=== PATIENT | female | born 1965 | race Caucasian/White ===

== ENCOUNTER 2024-03-29 02:50 | Inpatient (IN) | payer MEDICARE, MEDICAID ==
[2024-03-29] MEDS ORDERED: SENNOSIDES 8.6 MG TAB PO PRN (03:06)
[2024-03-29] MEDS: hydrOXYzine HCL 25 MG TAB PO SCH (09:26)
[2024-03-29] MEDS: METOPROLOL TARTRATE 25 MG TAB PO SCH (09:26)
[2024-03-29] MEDS: SERTRALINE 100 MG TAB PO SCH (09:26)
[2024-03-29] MEDS: LORazepam 1 MG TAB PO PRN (10:50)
[2024-03-29 10:54] LABS: Basophils % (A) 1 %; Eosinophils # (A) 0.1 k/uL (0-0.7); Eosinophils % (A) 1 %; HCT 46.9 % (34.0-46.0); HGB 13.9 gm/dL (11.4-16.0); Lymphocytes # (A) 1.8 k/uL (1.0-4.8); Lymphocytes % (A) 27 %; MCH 26.1 pg (25.0-35.0); MCHC 29.6 g/dL (31.0-37.0); MCV 88.2 fL (80.0-100.0); Mean Platelet Volume 9.4; Monocytes # (A) 0.6 k/uL (0-1.0); Monocytes % (A) 8 %; Neutrophils # (A) 4.2 k/uL (1.3-7.7); Neutrophils % (A) 62 %; Platelet Count 149 k/uL (150-450); RBC 5.31 m/uL (3.80-5.40); RDW 13.9 % (11.5-15.5); WBC 6.8 k/uL (3.8-10.6)
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
[2024-03-29] MEDS: SENNOSIDES-DOCUSATE SODIUM 1 EACH TAB PO SCH (11:54)
[2024-03-29] MEDS: cloZAPine 100 MG TAB PO SCH (11:57)
[2024-03-29] MEDS: haloperidoL 5 MG TAB PO SCH (11:57)
--- NOTE | 2024-03-29 11:58 | XR ---
EXAMINATION TYPE: XR KUB DATE OF EXAM: 03/29/2024 COMPARISON: NONE HISTORY: Foreign body TECHNIQUE: One view abdominal series FINDINGS: The osseous structures are intact. The bowel gas pattern is nonspecific. Lung bases are clear. Rect al region is not included in the [id number]. Remaining portion of the pelvis and abdomen demonstra te no foreign body. Spina bifida occulta at lumbosacral junction. Degenerative change of the spine. IMPRESSION: 1. Nonspecific abdomen. Rectal region not included in the [id number].
--- NOTE | 2024-03-29 12:00 | XR ---
EXAMINATION TYPE: XR pelvis AP view DATE OF EXAM: 03/29/2024 COMPARISON: NONE HISTORY: Pain The osseous structures are intact and the joint spaces are preserved. No acute fracture is seen. Vi sualized bowel gas pattern is nonspecific. Bilateral hypertrophic hip arthropathy. Nonspecific lucen t lesions involving the femoral neck greater on the left. Hypertrophic arthropathy pubic symphysis. P unctate calcifications in the pelvis likely phleboliths. Enthesophytes involving the iliac crest. No metallic foreign body. Spina bifida occulta lumbosacral junction. IMPRESSION: 1. No radial metallic foreign body identified. 2. Nonspecific lytic lesion too small to characterize left femoral neck.
[2024-03-29] MEDS: bisacodyL 10 MG SUPP RECTAL STA (13:22)
[2024-03-29] MEDS: MAGNESIUM HYDROXIDE 2,400 MG/30 ML CUP PO PRN (14:38)
--- NOTE | 2024-03-29 18:36 | P.HPMEDMHU ---
History of Present Illness H&P Date: 03/29/24 Patient is a 58-year-old female with a past medical history of hypertension who is admitted to the psych unit for treatment of schizophrenia and suicidal idealization. Patient currently complaining of some rectal pain. She states that the rectal pain has been going on for 4 years. She denies any history of hemorrhoids. She states that when she eats ice cream it makes her rectal pain worse. She also states that she has bad anxiety. She is requesting something for anxiety. ROS: 10 ROS reviewed and are negative except as noted in HPI Physical exam General: [Alert and oriented, well nourished, no acute distress]. Eye: [PERRL, EOMI, normal conjunctiva]. HENT: [Normocephalic, clear tympanic membranes, normal hearing, moist oral mucosa, no scleral icterus, no sinus tenderness]. Neck: [Supple, non-tender, no carotid bruits, no JVD, no lymphadenopathy]. Lungs: [Clear to auscultation and percussion, non-labored respiration]. Heart: [Normal rate, regular rhythm, no murmur, gallop or edema]. Abdomen: [Soft, non-tender, non-distended, normal bowel sounds, no masses]. Musculoskeletal: [Normal range of motion and strength, no tenderness or swelling]. Skin: [Skin is warm, dry and pink, no rashes or lesions]. Neurologic: [Awake, alert, and oriented X3, CN II-XII intact]. Psychiatric: [Cooperative, appropriate mood and affect]. Assessment and plan Hypertension Resume metoprolol Blood pressure controlled Schizophrenia suicidal idealization as per you psychiatry management I reviewed patient's labs which are unremarkable. Please do not hesitate to contact sound physicians with any questions Past Medical History Past Medical History: Hypertension Additional Past Medical History / Comment(s): Demonstrating s/s of tardive dyskinesia AEB lifting legs up and down while standing and facial movements. History of Any Multi-Drug Resistant Organisms: None Reported Past Surgical History: Section Additional Past Surgical History / Comment(s): x 2 Past Anesthesia/Blood Transfusion Reactions: No Reported Reaction Past Psychological History: Schizoaffective Disorder Smoking Status: Never smoker Past Alcohol Use History: None Reported Past Drug Use History: None Reported Medications and Allergies Home Medications Medication Instructions Recorded Confirmed Type Metoprolol Tartrate [Lopressor] 25 mg PO BID 03/29/24 03/29/24 History Sertraline [Zoloft] 200 mg PO DAILY 03/29/24 03/29/24 History cloZAPine [Clozaril] 100 mg PO BID 03/29/24 03/29/24 History haloperidoL [Haldol] 5 mg PO TID 03/29/24 03/29/24 History hydrOXYzine pamoate [Vistaril] 50 mg PO TID 03/29/24 03/29/24 History traZODone HCL [Desyrel] 100 mg PO HS 03/29/24 03/29/24 History Allergies Allergy/AdvReac Type Severity Reaction Status Date / Time aripiprazole [From [facility]] Allergy Mild Unknown Verified 03/29/24 09:45 Physical Exam Osteopathic Statement: *. No significant issues noted on an osteopathic structural exam other than those noted in the History and Physical/Consult. Vitals: Vital Signs Temp Pulse Resp BP Pulse Ox 03/29/24 09:15 97.9 F 103 H 18 138/74 95 Intake and Output 03/29/24 03/29/24 03/29/24 06:59 14:59 22:59 Other: Weight 54.4 kg 64.3 kg Cranial Nerve Examination - Cranial Nerves Cranial Nerve I- Olfactory: Intact Cranial Nerve II- Optic: Intact Cranial Nerve III- Oculomotor: Intact Cranial Nerve IV- Trochlear: Intact Cranial Nerve V- Trigeminal: Intact Cranial Nerve - Abducens: Intact Cranial Nerve VII- Facial: Intact Cranial Nerve VIII- Auditory: Intact Cranial Nerve IX- Glossopharyngeal: Intact Cranial Nerve X- Vagus: Intact Cranial Nerve XI- Accessory: Intact Cranial Nerve XII- Hypoglossal: Intact Results CBC & Chem 7: 03/29/24 10:21 Labs: Abnormal Lab Results - Last 24 Hours (Table) 03/29/24 Range/Units 10:21 Hct 46.9 H (34.0-46.0) % MCHC 29.6 L (31.0-37.0) g/dL Plt Count 149 L (150-450) k/uL Thrombosis Risk Factor Assmnt - Choose All That Apply Any of the Below Risk Factors Present?: No Other Risk Factors: No Thrombosis Risk Factor Assessment Level: Very Low Risk
[2024-03-29] MEDS: traZODone HCL 50 MG TAB PO SCH (20:20)
[2024-03-30] MEDS: ACETAMINOPHEN TAB 325 MG TAB PO PRN (06:58)
--- NOTE | 2024-03-30 11:25 | P.PN ---
Progress Note - Text Progress Note Date: 03/30/24 Interval History: Patient was seen wandering the hallways and was directable and agreeable to sp larry with consumer loan underwriter in the office. Patient is still fixated with "it is in my rectum". Patient states that she slept ok. She stated that she is really bad. Patient presents as very nervous and anxious. Patient states that she still is feeling suicidal, and that she can't go on, and that she needs some kind of medicine. Patient is eating her meals. Marsh Buggy Operator reviewed abdominal xrays, no abnormalities noted. At this time patient denies any homicidal ideations, intent or plan. Patient denies any auditory, visual hallucinations and denies any paranoia or delusions. Patient denies any side effects from the medications and has been compliant with meds. MENTAL STATUS EXAM: General Appearance: Patient appears to be older than stated age, is alert, directable, and attempts to cooperate. Patient appears to have fair hygiene and grooming. Behavior: Patient is seated without any agitated behavior. Fidgety, anxious, nervous Speech: Patient's speech is fluent and nonpressured. Mood/Affect: Patient reports their mood is "really bad", affect is congruent and constricted. [place] Suicidality/Homicidality: Patient denies having any homicidal ideation intent or plan. endorses suicidal ideations , with no intent or plan Perceptions: Patient denies any visual hallucinations and denies any auditory hallucinations Though content/process: There is evidence of any delusional thought content and thought process is focused on anxiety in her rectum Memory and concentration: AOX3, grossly intact for the purposes of this session. Judgment and insight: chronically poor IMPRESSIONS: schizophrenia suicidal ideation PLAN: -Patient is admitted under involuntary status to MHU for stabilization of psychiatric symptoms and safety. Patient has not signed adult voluntary form and medication consent and is placed in patient's chart. A second certification was completed and along with petition will be filed for court. -Medications: increase Prolixin 5 mg BID for psychosis, senakot 1 tablet bid for constipation. Zoloft 100 daily for mood/anxiety, trazodone 100mg qhs for sleep. -Ativan [and Haldol] PRN for agitation/aggression -NRT - [nicotine patch] -SW on board for discharge planning. Encourage patient to participate in groups to work on coping skills. Will await deferral and court date
[2024-03-30] MEDS: hydrOXYzine pamoate 25 MG CAP PO PRN (11:29)
[2024-03-30] MEDS: haloperidoL 5 MG TAB PO PRN (11:29)
[2024-03-30 11:45] LABS: Clozapine (Clozaril) 185 ng/mL (200-700); Norclozapine 179 ng/mL (200-700)
[2024-03-30] MEDS: IBUPROFEN 600 MG TAB PO PRN (15:49)
--- NOTE | 2024-03-31 09:29 | P.PN ---
Progress Note - Text Progress Note Date: 03/31/24 Interval History: Patient was seen wandering the hallways and was directable and agreeable to nolan juarez with scientific technical writer. Patient claims that she is still having something "in my rectum". She continues to appear to be in distress, states that "nothing is working". She continues to be pacing up and down the hallways and distress. She claims that she is having depression and anxiety and also was upset, is relating that she has suicidal thoughts however no plan. Claims that she is not sleeping well. At this time patient denies any homicidal ideations, intent or plan. Patient denies any auditory, visual hallucinations and denies any paranoia or delusions. Patient denies any side effects from the medications and has been compliant with meds. MENTAL STATUS EXAM: General Appearance: Patient appears to be older than stated age, is alert, directable, and attempts to cooperate. Patient appears to have fair hygiene and grooming. Behavior: Patient is seated without any agitated behavior. Fidgety, anxious, nervous Speech: Patient's speech is fluent and nonpressured. Mood/Affect: Patient reports their mood is "really bad", affect is congruent and constricted. [place] Suicidality/Homicidality: Patient denies having any homicidal ideation intent or plan. endorses suicidal ideations, with no intent or plan Perceptions: Patient denies any visual hallucinations and denies any auditory hallucinations Though content/process: There is evidence of any delusional thought content and thought process is focused on anxiety about her rectum Memory and concentration: AOX3, grossly intact for the purposes of this session. Judgment and insight: chronically poor IMPRESSIONS: schizophrenia suicidal ideation PLAN: -Patient is admitted under involuntary status to MHU for stabilization of psychiatric symptoms and safety. Patient has not signed adult voluntary form and medication consent and is placed in patient's chart. A second certification was completed and along with petition will be filed for court. -Medications: Increase Prolixin 5 mg TID for psychosis, senakot 1 tablet bid for constipation. Increase Zoloft 150 daily for mood/anxiety, trazodone 100mg qhs for sleep. -Ativan and Haldol PRN for agitation/aggression -NRT -nicotine patch -SW on board for discharge planning. Encourage patient to participate in groups to work on coping skills. Deferral set for today.
[2024-03-31] MEDS: SERTRALINE 50 MG TAB PO STA (09:41)
[2024-04-01] MEDS: SERTRALINE 50 MG TAB PO SCH (08:04)
--- NOTE | 2024-04-01 10:30 | P.PN ---
Progress Note - Text Progress Note Date: 04/01/24 Interval History: Patient was seen in her bed today and was agreeable to speak to typewriter tester. Patient continues to tell typewriter tester "it is in my rectum". She continues to perseverate on this during conversation. She claims that she needs help with this. She also states that nothing is helping her. She continues to be pacing up and down the hallways and distress. She claims that she is having depression and anxiety and also was upset, is relating that she has suicidal thoughts however no plan. Cl aims that she is not sleeping well. At this time patient denies any homicidal ideations, intent or plan. Patient denies any auditory, visual hallucinations and denies any paranoia or delusions. Patient denies any side effects from the medications and has been compliant with meds. MENTAL STATUS EXAM: General Appearance: Patient appears to be older than stated age, is alert, directable, and attempts to cooperate. Patient appears to have fair hygiene and grooming. Behavior: Patient is seated without any agitated behavior. Fidgety, anxious, nervous Speech: Patient's speech is fluent and nonpressured. Mood/Affect: Patient reports their mood is "bad", affect is congruent and constricted. [place] Suicidality/Homicidality: Patient denies having any homicidal ideation intent or plan. endorses suicidal ideations, with no intent or plan Perceptions: Patient denies any visual hallucinations and denies any auditory hallucinations Though content/process: There is evidence of any delusional thought content and thought process is focused on anxiety about her rectum Memory and concentration: AOX3, grossly intact for the purposes of this session. Judgment and insight: chronically poor IMPRESSIONS: schizophrenia suicidal ideation PLAN: -Patient is admitted under involuntary status to MHU for stabilization of psychiatric symptoms and safety. Patient has not signed adult voluntary form and medication consent and is placed in patient's chart. Patient did defer with her commercial real estate attorney. -Medications: Prolixin 5 mg TID for psychosis, will increase to 10 mg bid during the weekend, sennakot 1 tablet bid for constipation. Zoloft 150 daily for mood/anxiety, trazodone 100mg qhs for sleep. -Ativan and Haldol PRN for agitation/aggression -NRT - nicotine patch -SW on board for discharge planning. Encourage patient to participate in groups to work on coping skills. Patient did defer with her commercial real estate attorney.
[2024-04-01] MEDS: DOCUSATE 100 MG CAP PO SCH (11:41)
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
[2024-04-01] MEDS: ZINC OXIDE PASTE (Z-GUARD) 1 APPLIC TOPICAL SCH (13:13)
[2024-04-01] MEDS ORDERED: ZINC OXIDE PASTE (Z-GUARD) 1 APPLIC TOPICAL SCH (21:00)
--- NOTE | 2024-04-02 14:24 | P.PN ---
Subjective Progress Note Date: 04/02/24 Principal diagnosis: IMPRESSIONS: schizophrenia Patient Name: Carey Tony Date of : 1965 Patient Status: Inpatient Attending Provider: Gregory Kelly Date: 04/02/2024 initialization Date: 04/01/24 08:44 Subjective data: The patient was seen in her room Patient continues to repeat that there is feces in her rectum and that she is not feeling well because of the feces Patient's responses were repetitious and mainly related to her rectum Claims that she is not sleeping well. At this time patient denies any homicidal ideations, intent or plan. Patient denies any auditory, visual hallucinations and denies any paranoia or delusions. Patient denies any side effects from the medications and has been compliant with meds. MENTAL STATUS EXAM: General Appearance: Patient appears to be older than stated age, is alert, directable, and attempts to cooperate. Patient appears to have fair hygiene and grooming. Behavior: Patient is seated without any agitated behavior. Fidgety, anxious, nervous Speech: Patient's speech is fluent and nonpressured. Mood/Affect: Patient reports their mood is "bad", affect is congruent and constricted. [place] Suicidality/Homicidality: Patient denies having any homicidal ideation intent or plan. endorses suicidal ideations, with no intent or plan Perceptions: Patient denies any visual hallucinations and denies any auditory hallucinations Though content/process: There is evidence of any delusional thought content and thought process is focused on anxiety about her rectum Memory and concentration: AOX3, grossly intact for the purposes of this session. Judgment and insight: chronically poor IMPRESSIONS: schizophrenia PLAN: Reviewed with the current treatment plan -Patient is admitted under involuntary status to MHU for stabilization of psychiatric symptoms and safety. Patient has not signed adult voluntary form and medication consent and is placed in patient's chart. Patient did defer with her gas turbine assembler. -Medications: Prolixin 5 mg TID for psychosis, will increase to 10 mg bid during the weekend, sennakot 1 tablet bid for constipation. Zoloft 150 daily for mood/anxiety, trazodone 100mg qhs for sleep. -Ativan and Haldol PRN for agitation/aggression -NRT - nicotine patch -SW on board for discharge planning. Encourage patient to participate in groups to work on coping skills. Patient did defer with her gas turbine assembler. Timothy Alvarado MD Active Medications Generic Name Dose Route Start Last Admin Trade Name Freq PRN Reason Stop Dose Admin Acetaminophen 650 mg 03/29/24 02:59 03/30/24 18:24 Acetaminophen Tab 325 Mg Tab PO 650 mg Q4HR PRN Administration Mild Pain (Scale 1 to 3) Al Hydroxide/Mg Hydroxide 30 ml 03/29/24 02:59 Mag Hydrox/Al Hydrox/Simeth 355 Ml Bottle PO Q4HR PRN GI Upset Docusate Sodium 100 mg 04/01/24 11:00 04/02/24 08:21 Docusate 100 Mg Cap PO 100 mg DAILY JANET Administration Fluphenazine HCl 5 mg 04/01/24 16:00 04/02/24 08:21 Fluphenazine 5 Mg Tab PO 04/02/24 23:00 5 mg TID JANET Administration Fluphenazine HCl 10 mg 04/03/24 09:00 Fluphenazine 5 Mg Tab PO BID JANET Haloperidol 5 mg 03/30/24 11:22 04/01/24 20:06 Haloperidol 5 Mg Tab PO 5 mg Q6HR PRN Administration Agitation Haloperidol Lactate 5 mg 03/30/24 11:22 Haloperidol Lactate 5 Mg/Ml 1 Ml Vial IM Q6HR PRN Agitation or Acute Psychosis Hydroxyzine Pamoate 50 mg 03/30/24 11:23 04/02/24 12:41 Hydroxyzine Pamoate 25 Mg Cap PO 50 mg Q8HR PRN Administration Anxiety Ibuprofen 600 mg 03/29/24 02:59 03/31/24 11:58 Ibuprofen 600 Mg Tab PO 600 mg Q6HR PRN Administration Moderate Pain (Scale 4 to 6) Lorazepam 1 mg 03/29/24 02:59 04/02/24 10:25 Lorazepam 1 Mg Tab PO 1 mg Q4HR PRN Administration Anxiety Lorazepam 2 mg 03/29/24 02:59 Lorazepam 2 Mg/Ml Inj IM Q6HR PRN Severe Agitation Magnesium Hydroxide 2,400 mg 03/29/24 02:59 03/31/24 09:07 Magnesium Hydroxide 2,400 Mg/30 Ml Cup PO 2,400 mg DAILY PRN Administration Constipation Metoprolol Tartrate 25 mg 03/29/24 09:00 04/02/24 08:21 Metoprolol Tartrate 25 Mg Tab PO 25 mg BID JANET Administration Petrolatum 1 applic 04/01/24 12:51 04/02/24 08:44 Zinc Oxide Paste (Z-Guard) 1 Applic TOPICAL Not Given BID JANET Protocol Senna/Docusate Sodium 1 each 03/29/24 11:45 04/02/24 08:21 Sennosides-Docusate Sodium 1 Each Tab PO 1 each BID JANET Administration Sertraline HCl 150 mg 04/01/24 09:00 04/02/24 08:21 Sertraline 50 Mg Tab PO 150 mg DAILY JANET Administration Trazodone HCl 100 mg 03/29/24 21:00 04/01/24 20:04 Trazodone Hcl 50 Mg Tab PO 100 mg HS JANET Administration Objective - Vital Signs Vital signs: Vital Signs Temp 97.8 F 04/02/24 06:00 Pulse 98 04/02/24 08:22 Resp 18 04/02/24 06:00 BP 188/73 04/02/24 08:22 Pulse Ox 96 04/02/24 06:00 FiO2 Intake & Output 04/01/24 04/02/24 04/02/24 18:59 06:59 18:59 Weight 64.3 kg - Labs CBC & Chem 7: 03/29/24 10:21
--- NOTE | 2024-04-03 09:26 | P.PN ---
Subjective Progress Note Date: 04/03/24 Principal diagnosis: IMPRESSIONS: schizophrenia Patient Name: Carey Tony Date of : 1965 Patient Status: Inpatient Attending Provider: Gregory Kelly Date: 04/03/24 initialization Date: 04/01/24 08:44 Subjective data: The patient was seen in her room Conversation is similar to the previous day Continues to complain about problems with her rectum in a very feeble voice Patient continues to repeat that there is feces in her rectum and that she is not feeling well because of the feces Patient's responses were repetitious and mainly related to her rectum Claims that she is not sleeping well. At this time patient denies any homicidal ideations, intent or plan. Patient denies any auditory, visual hallucinations and denies any paranoia or delusions. Patient denies any side effects from the medications and has been compliant with meds. MENTAL STATUS EXAM: General Appearance: Patient appears to be older than stated age, is alert, directable, and attempts to cooperate. Patient appears to have fair hygiene and grooming. Behavior: Patient is seated without any agitated behavior. Fidgety, anxious, nervous Speech: Patient's speech is fluent and nonpressured. Mood/Affect: Patient reports their mood is "bad", affect is congruent and constricted. [place] Suicidality/Homicidality: Patient denies having any homicidal ideation intent or plan. endorses suicidal ideations, with no intent or plan Perceptions: Patient denies any visual hallucinations and denies any auditory hallucinations Though content/process: There is evidence of any delusional thought content and thought process is focused on anxiety about her rectum Memory and concentration: AOX3, grossly intact for the purposes of this session. Judgment and insight: chronically poor IMPRESSIONS: schizophrenia PLAN: Reviewed with the current treatment plan -Patient is admitted under involuntary status to [facility] for stabilization of psychiatric symptoms and safety. Patient has not signed adult voluntary form and medication consent and is placed in patient's chart. Patient did defer with her trade mark attorney. -Medications: Prolixin 5 mg TID for psychosis, will increase to 10 mg bid during the weekend, sennakot 1 tablet bid for constipation. Zoloft 150 daily for mood/anxiety, trazodone 100mg qhs for sleep. -Ativan and Haldol PRN for agitation/aggression -NRT - nicotine patch -SW on board for discharge planning. Encourage patient to participate in groups to work on coping skills. Patient did defer with her trade mark attorney. Timothy Alvarado MD Active Medications Generic Name Dose Route Start Last Admin Trade Name Freq PRN Reason Stop Dose Admin Acetaminophen 650 mg 03/29/24 02:59 03/30/24 18:24 Acetaminophen Tab 325 Mg Tab PO 650 mg Q4HR PRN Administration Mild Pain (Scale 1 to 3) Al Hydroxide/Mg Hydroxide 30 ml 03/29/24 02:59 Mag Hydrox/Al Hydrox/Simeth 355 Ml Bottle PO Q4HR PRN GI Upset Docusate Sodium 100 mg 04/01/24 11:00 04/02/24 08:21 Docusate 100 Mg Cap PO 100 mg DAILY JANET Administration Fluphenazine HCl 5 mg 04/01/24 16:00 04/02/24 08:21 Fluphenazine 5 Mg Tab PO 04/02/24 23:00 5 mg TID JANET Administration Fluphenazine HCl 10 mg 04/03/24 09:00 Fluphenazine 5 Mg Tab PO BID JANET Haloperidol 5 mg 03/30/24 11:22 04/01/24 20:06 Haloperidol 5 Mg Tab PO 5 mg Q6HR PRN Administration Agitation Haloperidol Lactate 5 mg 03/30/24 11:22 Haloperidol Lactate 5 Mg/Ml 1 Ml Vial IM Q6HR PRN Agitation or Acute Psychosis Hydroxyzine Pamoate 50 mg 03/30/24 11:23 04/02/24 12:41 Hydroxyzine Pamoate 25 Mg Cap PO 50 mg Q8HR PRN Administration Anxiety Ibuprofen 600 mg 03/29/24 02:59 03/31/24 11:58 Ibuprofen 600 Mg Tab PO 600 mg Q6HR PRN Administration Moderate Pain (Scale 4 to 6) Lorazepam 1 mg 03/29/24 02:59 04/02/24 10:25 Lorazepam 1 Mg Tab PO 1 mg Q4HR PRN Administration Anxiety Lorazepam 2 mg 03/29/24 02:59 Lorazepam 2 Mg/Ml Inj IM Q6HR PRN Severe Agitation Magnesium Hydroxide 2,400 mg 03/29/24 02:59 03/31/24 09:07 Magnesium Hydroxide 2,400 Mg/30 Ml Cup PO 2,400 mg DAILY PRN Administration Constipation Metoprolol Tartrate 25 mg 03/29/24 09:00 04/02/24 08:21 Metoprolol Tartrate 25 Mg Tab PO 25 mg BID JANET Administration Petrolatum 1 applic 04/01/24 12:51 04/02/24 08:44 Zinc Oxide Paste (Z-Guard) 1 Applic TOPICAL Not Given BID JANET Protocol Senna/Docusate Sodium 1 each 03/29/24 11:45 04/02/24 08:21 Sennosides-Docusate Sodium 1 Each Tab PO 1 each BID JANET Administration Sertraline HCl 150 mg 04/01/24 09:00 04/02/24 08:21 Sertraline 50 Mg Tab PO 150 mg DAILY JANET Administration Trazodone HCl 100 mg 03/29/24 21:00 04/01/24 20:04 Trazodone Hcl 50 Mg Tab PO 100 mg HS JANET Administration Objective - Vital Signs Vital signs: Vital Signs Temp 97.8 F 04/03/24 08:03 Pulse 110 H 04/03/24 08:03 Resp 20 04/03/24 08:03 BP 137/88 04/03/24 08:03 Pulse Ox 96 04/02/24 06:00 FiO2 - Labs CBC & Chem 7: 03/29/24 10:21
--- NOTE | 2024-04-04 09:55 | P.PN ---
Progress Note - Text Progress Note Date: 04/04/24 Interval History: Patient was seen wandering in the hallways and was agreeable to speak to life underwriter. Patient continues to tell life underwriter "it is in my rectum". She continues to answer most questions this way and perseverate during conversation. She claims that she needs help with this and believes nothing is working. She claims that she did not sleep well last night, denies any suicidal thoughts today. Denies any homicidal ideations. She claims that she is having depression and anxiety and also was upset. At this time patient denies any homicidal ideations, intent or plan. Patient denies any auditory, visual hallucinations and denies any paranoia or delusions. Patient denies any side effects from the medications and has been compliant with meds. MENTAL STATUS EXAM: General Appearance: Patient appears to be older than stated age, is alert, directable, and attempts to cooperate. Patient appears to have fair hygiene and grooming. Behavior: Patient is seated without any agitated behavior. Fidgety, anxious, nervous Speech: Patient's speech is fluent and nonpressured. Perseverating Mood/Affect: Patient reports their mood is "bad", affect is congruent and constricted. [place] Suicidality/Homicidality: Patient denies having any homicidal ideation intent or plan. endorses suicidal ideations, with no intent or plan Perceptions: Patient denies any visual hallucinations and denies any auditory hallucinations Though content/process: There is evidence of any delusional thought content and thought process is focused on anxiety about her rectum Memory and concentration: AOX3, grossly intact for the purposes of this session. Judgment and insight: chronically poor IMPRESSIONS: schizophrenia suicidal ideation PLAN: -Patient is admitted under involuntary status to [facility] for stabilization of psychiatric symptoms and safety. Patient has not signed adult voluntary form and medication consent and is placed in patient's chart. Patient did defer with her mergers and acquisitions attorney. -Medications: Prolixin 10 mg BID for psychosis, sennakot 1 tablet bid for constipation. Increase Zoloft 200 daily for mood/anxiety, increase trazodone 150mg qhs for sleep. Added Vistaril scheduled 50 mg twice daily for anxiety. -Ativan and Haldol PRN for agitation/aggression -NRT - nicotine patch -SW on board for discharge planning. Encourage patient to participate in groups to work on coping skills. Patient did defer with her mergers and acquisitions attorney.
[2024-04-04] MEDS: traZODone HCL 50 MG TAB PO SCH (21:05)
[2024-04-04] MEDS: hydrOXYzine pamoate 25 MG CAP PO SCH (21:05)
[2024-04-05] MEDS: SERTRALINE 100 MG TAB PO SCH (08:13)
--- NOTE | 2024-04-05 11:15 | P.PN ---
Progress Note - Text Progress Note Date: 04/05/24 Interval History: Patient was seen laying in her bed today, she was sleeping, she was awoken by insurance underwriter sales. Patient continues to state that "it is in my rectum". She continues to answer most questions this way and perseverate during conversation. She claims that she needs help with this and believes nothing is working. Continues to state that she feels depressed anxious and today she is endorsing suicidal thoughts towards herself. Claims that she did not sleep well last night. Denies any homicidal ideations. She claims that she is having depression and anxiety and also was upset. At this time patient denies any homicidal ideations, intent or plan. Patient denies any auditory, visual hallucinations and denies any paranoia or delusions. Patient denies any side effects from the medications and has been compliant with meds. MENTAL STATUS EXAM: General Appearance: Patient appears to be older than stated age, is alert, directable, and attempts to cooperate. Patient appears to have fair hygiene and grooming. Behavior: Patient is seated without any agitated behavior. Fidgety, anxious, nervous Speech: Patient's speech is fluent and nonpressured. Perseverating Mood/Affect: Patient reports their mood is "bad", affect is congruent and constricted. [place] Suicidality/Homicidality: Patient denies having any homicidal ideation intent or plan. endorses suicidal ideations, with no intent or plan Perceptions: Patient denies any visual hallucinations and denies any auditory hallucinations Though content/process: There is evidence of any delusional thought content and thought process is focused on anxiety about her rectum Memory and concentration: AOX3, grossly intact for the purposes of this session. Judgment and insight: chronically poor IMPRESSIONS: schizophrenia suicidal ideation PLAN: -Patient is admitted under involuntary status to MHU for stabilization of psychiatric symptoms and safety. Patient has not signed adult voluntary form and medication consent and is placed in patient's chart. Patient did defer with her surgical services director. -Medications: Prolixin 10 mg BID for psychosis, sennakot 1 tablet bid for constipation. Zoloft 200 daily for mood/anxiety, discontinue trazodone and replace with Seroquel 100 mg nightly for psychosis adjunct/anxiety/insomnia. Vistaril scheduled 50 mg twice daily for anxiety. -EKG ordered for tachycardia -Ativan and Haldol PRN for agitation/aggression -NRT - nicotine patch -SW on board for discharge planning. Encourage patient to participate in groups to work on coping skills. Patient did defer with her surgical services director.
[2024-04-05] MEDS: MAG HYDROX/AL HYDROX/SIMETH 355 ML BOTTLE PO PRN (17:06)
[2024-04-05] MEDS ORDERED: QUEtiapine 25 MG TAB PO SCH (21:00)
[2024-04-05] MEDS: QUEtiapine 100 MG TAB PO SCH (21:18)
--- NOTE | 2024-04-06 10:27 | P.PN ---
Progress Note - Text Progress Note Date: 04/06/24 Interval History: Patient was seen laying in her bed today, she was sleeping, she was awoken by commercial insurance underwriter. Patient continues to state that "it is in my rectum". She appears to be mildly less preoccupied with this today. She did appear to be in a position, claims that she has stiffness in her legs and arms. she did have findings of she has having some stiffness in her muscles, commercial insurance underwriter examined them briefly and noticed dystonia. she continues to answer most questions this way and perseverate during conversation however this is mildly improving. She continues to state that she is feeling anxious however is denying any suicidal thoughts today. Claims that she did not sleep well last night. Denies any homicidal ideations. At this time patient denies any homicidal ideations, intent or plan. Patient denies any auditory, visual hallucinations and denies any paranoia or delusions. Patient denies any side effects from the medications and has been compliant with meds. MENTAL STATUS EXAM: General Appearance: Patient appears to be older than stated age, is alert, directable, and attempts to cooperate. Patient appears to have fair hygiene and grooming. Behavior: Patient is seated without any agitated behavior. Fidgety, anxious, nervous Speech: Patient's speech is fluent and nonpressured. Perseverating Mood/Affect: Patient reports their mood is "not good", affect is congruent and constricted. [place] Suicidality/Homicidality: Patient denies having any homicidal ideation intent or plan. denies any suicidal ideations, with no intent or plan Perceptions: Patient denies any visual hallucinations and denies any auditory hallucinations Though content/process: There is evidence of any delusional thought content and thought process is focused on anxiety about her rectum, this is improving mildly Memory and concentration: AOX3, grossly intact for the purposes of this session. Judgment and insight: chronically poor IMPRESSIONS: schizophrenia suicidal ideation PLAN: -Patient is admitted under involuntary status to [facility]HU for stabilization of psychiatric symptoms and safety. Patient has not signed adult voluntary form and medication consent and is placed in patient's chart. Patient did defer with her assistant county attorney. -Medications: Prolixin 10 mg BID for psychosis, sennakot 1 tablet bid for constipation. Zoloft 200 daily for mood/anxiety, Seroquel 100 mg nightly for psychosis adjunct/anxiety/insomnia. added cogentin 1 mg big for eps reaction/dystonia. Vistaril scheduled 50 mg twice daily for anxiety. -Network Security Consultant reviewed EKG, will repeat tomorrow and check troponin today -Ativan and Haldol PRN for agitation/aggression -NRT - nicotine patch -SW on board for discharge planning. Encourage patient to participate in groups to work on coping skills. Patient did defer with her assistant county attorney.
[2024-04-06] MEDS: BENZTROPINE MESYLATE 1 MG TAB PO SCH (11:59)
[2024-04-06 18:12] LABS: Basophils # (A) 0.1 k/uL (0-0.2); Basophils % (A) 1 %; Eosinophils # (A) 0.1 k/uL (0-0.7); Eosinophils % (A) 1 %; HCT 47.8 % (34.0-46.0); HGB 14.8 gm/dL (11.4-16.0); Lymphocytes # (A) 3.2 k/uL (1.0-4.8); Lymphocytes % (A) 38 %; MCV 87.4 fL (80.0-100.0); Mean Platelet Volume 8.3; Monocytes # (A) 0.6 k/uL (0-1.0); Monocytes % (A) 7 %; Neutrophils # (A) 4.5 k/uL (1.3-7.7); Neutrophils % (A) 52 %; Platelet Count 215 k/uL (150-450); RBC 5.47 m/uL (3.80-5.40); WBC 8.6 k/uL (3.8-10.6)
[2024-04-06 18:30] LABS: ALT 18 U/L (4-34); AST 22 U/L (14-36); African American GFR (CKD) >90 (>60 ml/min/1.73 sqM); Alkaline Phosphatase 79 U/L (38-126); Anion Gap 5 mmol/L; Blood Urea Nitrogen 15 mg/dL (7-17); Calcium 9.3 mg/dL (8.4-10.2); Carbon Dioxide 29 mmol/L (22-30); Chloride 103 mmol/L (98-107); Glucose 101 mg/dL (74-99); Non-African American GFR(CKD) 90 (>60 ml/min/1.73 sqM); Potassium 4.3 mmol/L (3.5-5.1); Sodium 137 mmol/L (137-145); Total Bilirubin 0.5 mg/dL (0.2-1.3); Total Protein 6.3 g/dL (6.3-8.2)
--- NOTE | 2024-04-07 11:00 | P.PN ---
Progress Note - Text Progress Note Date: 04/07/24 Interval History: Patient was seen laying in her bed today, and agreeable to speak with typewriter assembly and parts inspector. Patient continues to state that "it is in my rectum". She appears to be more preoccupied with this today. Chief Engineer Drilling And Recovery checked the patients' arms and legs for stiffness, patient seems to be less stiff today, with the help of the cogentin. She continues to answer most questions with "it is in my rectum" and perseverate during conversation. She states she can not eat because it is in her rectum. She continues to state that she is feeling anxious, and she is endorsing suicidal thoughts today, with no plan. Claims that she did not sleep well last night. Denies any homicidal ideations. Patient denies any auditory, visual hallucinations and denies any paranoia or delusions. Patient denies any side effects from the medications and has been compliant with meds. MENTAL STATUS EXAM: General Appearance: Patient appears to be older than stated age, is alert, directable, and attempts to cooperate. Patient appears to have fair hygiene and grooming. Behavior: Patient is seated without any agitated behavior. Fidgety, anxious, nervous Speech: Patient's speech is fluent and nonpressured. Perseverating Mood/Affect: Patient reports their mood is "not good", affect is congruent and constricted. [place] Suicidality/Homicidality: Patient denies having any homicidal ideation intent or plan. endorses suicidal ideations, with no intent or plan Perceptions: Patient denies any visual hallucinations and denies any auditory hallucinations Though content/process: There is evidence of any delusional thought content and thought process is focused on anxiety about her rectum, this is improving mildly. Perseverating Memory and concentration: AOX3, grossly intact for the purposes of this session. Judgment and insight: chronically poor IMPRESSIONS: schizophrenia suicidal ideation PLAN: -Patient is admitted under involuntary status to [facility]HU for stabilization of psychiatric symptoms and safety. Patient has not signed adult voluntary form and medication consent and is placed in patient's chart. Patient did defer with her commercial real estate attorney. -Medications: Discontinue Prolixin due to ineffectiveness and EPS reaction. Will start clozapine 25 mg twice daily for psychosis and plan to titrate up. sennakot 1 tablet bid for constipation. Zoloft 200 daily for mood/anxiety, discontinue Seroquel and cogentin. Vistaril scheduled 50 mg twice daily for anxiety. -Chief Engineer Drilling And Recovery reviewed EKG, will repeat tomorrow. Troponin negative, reviewed blood panel. -Ativan and Haldol PRN for agitation/aggression -NRT - nicotine patch -SW on board for discharge planning. Encourage patient to participate in groups to work on coping skills. Patient did defer with her commercial real estate attorney. Patient will need half-way placement upon discharge.
[2024-04-07] MEDS: cloZAPine 25 MG TAB PO SCH (21:25)
--- NOTE | 2024-04-08 11:09 | P.PN ---
Progress Note - Text Progress Note Date: 04/08/24 Interval History: Patient was seen laying in her bed today, and agreeable to speak with law writer. Patient still states that "it is in my rectum". She appears to be much less preoccupied with this today. Patient had left a bowel movement in her toilet for the law writer to see, law writer observed a loose stool. Patient stated that she feels like she is never going to get out of here. Insurance Office Supervisor explained to the patient about safe discharge. Patient agreeable. She continues to state that she is feeling anxious, and she is not endorsing suicidal thoughts today. Claims that she did not sleep well last night. Denies any homicidal ideations. Patient denies any auditory, visual hallucinations and denies any paranoia or delusions. Patient denies any side effects from the medications and has been compliant with meds. MENTAL STATUS EXAM: General Appearance: Patient appears to be older than stated age, is alert, directable, and attempts to cooperate. Patient appears to have fair hygiene and grooming. Behavior: Patient is seated without any agitated behavior, anxious, nervous Speech: Patient's speech is fluent and nonpressured. Perseverating-mildly improving Mood/Affect: Patient reports their mood is "not good", affect is congruent and constricted. [place], improving mildly Suicidality/Homicidality: Patient denies having any homicidal ideation intent or plan. denies suicidal ideations, with no intent or plan Perceptions: Patient denies any visual hallucinations and denies any auditory h allucinations Though content/process: There is evidence of any delusional thought content and thought process is focused on anxiety about her rectum, this is improving mildly. Memory and concentration: AOX3, grossly intact for the purposes of this session. Judgment and insight: chronically poor, improving mildly IMPRESSIONS: schizophrenia suicidal ideation PLAN: -Patient is admitted under involuntary status to MHU for stabilization of psychiatric symptoms and safety. Patient has not signed adult voluntary form and medication consent and is placed in patient's chart. Patient did defer with her quality assurance specialist. -Medications: increase clozapine 25 mg daily + 50mg qhs for psychosis and plan to titrate up. sennakot 1 tablet bid for constipation. Zoloft 200 daily for mood/anxiety, Vistaril scheduled 50 mg twice daily for anxiety. -Insurance Office Supervisor reviewed EKG, within normal limits -Ativan and Haldol PRN for agitation/aggression -NRT - nicotine patch -SW on board for discharge planning. Encourage patient to participate in groups to work on coping skills. Patient did defer with her quality assurance specialist. Patient will need retirement placement upon discharge.
[2024-04-08 18:15] LABS: Appearance,Urine Cloudy (Clear); Bacteria,Urine Rare /hpf; Bilirubin,Urine Negative (Negative); Blood,Urine Negative (Negative); Color,Urine Yellow; Glucose,Urine (UA) Negative (Negative); Ketones,Urine Negative (Negative); Leukocyte Esterase,Urine Large (Negative); Mucus,Urine Few /hpf; Nitrite,Urine Negative (Negative); PH, Urine 5.5 (5.0-8.0); Protein,Urine Negative (Negative); RBC,Urine 2 /hpf (0-5); Specific Gravity,Urine 1.021 (1.001-1.035); Squamous Epithelial Cell,Urine 6 /hpf (0-4); Urobilinogen,Urine <2.0 mg/dL (<2.0); WBC,Urine 11 /hpf (0-5)
[2024-04-08] MEDS: cloZAPine 25 MG TAB PO ONE (21:09)
[2024-04-09] MEDS: cloZAPine 25 MG TAB PO SCH ×2 (08:12→20:39)
--- NOTE | 2024-04-09 09:39 | P.PN ---
Subjective Progress Note Date: 04/09/24 Principal diagnosis: IMPRESSIONS: schizophrenia Patient Name: Carey Tony Date of : 1965 Patient Status: Inpatient Attending Provider: Gregory Kelly Date: 04/09/24 initialization Date: 04/01/24 08:44 Subjective data: The patient was seen where she approached this telegraphic typewriter operator chief stating that she was going to have her lunch Patient seem to be anxious and seems to be short for her weight on her alternate legs and most likely exhibiting akathisia Patient seems anxious Patient then suddenly turn around and stated that she was not going to have breakfast and went back to her room Patient declined to respond to any questions or be stopped from getting back to her room MENTAL STATUS EXAM: General Appearance: Patient appears to be older than stated age, is alert, appearance is disheveled Behavior: Patient is standing and is. Fidgety, anxious, nervous Speech: Patient's speech is fluent and nonpressured. Mood/Affect: Patient reports their mood is "bad", affect is congruent and constricted. [place] Suicidality/Homicidality: Patient denies having any homicidal ideation intent or plan. endorses suicidal ideations, with no intent or plan Perceptions: Patient denies any visual hallucinations and denies any auditory hallucinations Though content/process: There is evidence of delusional thought content and thought process is focused on anxiety about her rectum Memory and concentration: AOX3, grossly intact for the purposes of this session. Judgment and insight: chronically poor IMPRESSIONS: schizophrenia PLAN: Reviewed with the current treatment plan Patient is admitted under involuntary status to [facility] for stabilization of psychiatric symptoms and safety. Patient has not signed adult voluntary form and medication consent and is placed in patient's chart. Patient did defer with her deputy prosecuting attorney. -Medications: clozapine 25 mg daily + 50mg qhs for psychosis and plan to titrate up. sennakot 1 tablet bid for constipation. Zoloft 200 daily for mood/anxiety, Vistaril scheduled 50 mg twice daily for anxiety. -Ativan and Haldol PRN for agitation/aggression -NRT - nicotine patch -SW on board for discharge planning. Encourage patient to participate in groups to work on coping skills. Patient did defer with her deputy prosecuting attorney. Patient will need half-way placement upon discharge. -Timothy Alvarado MD Objective - Vital Signs Vital signs: Vital Signs Temp 96.9 F L 04/08/24 08:07 Pulse 130 H 04/09/24 08:13 Resp 18 04/08/24 06:00 BP 130/84 04/09/24 08:13 Pulse Ox 99 04/08/24 06:00 FiO2 Intake & Output 04/08/24 04/09/24 04/09/24 18:59 06:59 18:59 Intake Total 600 Balance 600 Intake: Oral 600 - Labs CBC & Chem 7: 04/06/24 17:44 04/06/24 17:44 Labs: Abnormal Lab Results - Last 24 Hours (Table) 04/08/24 Range/Units 17:39 Urine Appearance Cloudy H (Clear) Ur Leukocyte Esterase Large H (Negative) Urine WBC 11 H (0-5) /hpf Ur Squamous Epith Cells 6 H (0-4) /hpf Urine Bacteria Rare H (None) /hpf Urine Mucus Few H (None) /hpf
--- NOTE | 2024-04-10 09:17 | P.PN ---
Subjective Progress Note Date: 04/10/24 Principal diagnosis: IMPRESSIONS: schizophrenia Patient Name: Carey Tony Date of : 1965 Patient Status: Inpatient Attending Provider: Gregory Kelly Date: 04/10/24 initialization Date: 04/01/24 08:44 Subjective data: Patient was seen in her room where she was laying comfortably Patient however was arousable easily She became very anxious immediately Patient states that she has been having problems with her bowels and her rectum Remains somatically preoccupied Affect seemed to fluctuate between marked anxiety and fearfulness Self-esteem and confidence remains low Remains somatically preoccupied Formal operational judgment and insight are poor Denies any auditory or visual hallucinations Denies any suicidal homicidal ideations but admits feeling helpless MENTAL STATUS EXAM: General Appearance: Patient appears to be older than stated age, is alert, appearance is disheveled Behavior: Patient is standing and is. Fidgety, anxious, nervous Speech: Patient's speech is fluent and nonpressured. Mood/Affect: Patient reports their mood is "bad", affect is congruent and constricted. [place] Suicidality/Homicidality: Patient denies having any homicidal ideation intent or plan. endorses suicidal ideations, with no intent or plan Perceptions: Patient denies any visual hallucinations and denies any auditory hallucinations Though content/process: There is evidence of delusional thought content and thought process is focused on anxiety about her rectum Memory and concentration: AOX3, grossly intact for the purposes of this session. Judgment and insight: chronically poor IMPRESSIONS: schizophrenia PLAN: Reviewed with the current treatment plan And recommend further increase in the Clozaril dosage as tolerated Patient is admitted under involuntary status to [facility]HU for stabilization of p sychiatric symptoms and safety. Patient has not signed adult voluntary form and medication consent and is placed in patient's chart. Patient did defer with her securities attorney. -Medications: clozapine 25 mg daily + 50mg qhs for psychosis and plan to titrate up. sennakot 1 tablet bid for constipation. Zoloft 200 daily for mood/anxiety, Vistaril scheduled 50 mg twice daily for anxiety. -Ativan and Haldol PRN for agitation/aggression -NRT - nicotine patch -SW on board for discharge planning. Encourage patient to participate in groups to work on coping skills. Patient did defer with her securities attorney. Patient will need residential placement upon discharge. -Timothy Alvarado MD Objective - Vital Signs Vital signs: Vital Signs Temp 97 F L 04/10/24 08:49 Pulse 122 H 04/10/24 08:49 Resp 18 04/10/24 06:02 BP 129/80 04/10/24 08:49 Pulse Ox 98 04/10/24 06:02 FiO2 - Labs CBC & Chem 7: 04/06/24 17:44 04/06/24 17:44 Labs: Microbiology - Last 24 Hours (Table) 04/08/24 17:39 Urine Culture - Preliminary Urine,Voided Group D Enterococcus
[2024-04-10] MEDS: HALOPERIDOL LACTATE 5 MG/ML 1 ML VIAL IM PRN (18:12)
[2024-04-10] MEDS: LORazepam 2 MG/ML INJ IM PRN (18:23)
--- NOTE | 2024-04-11 11:38 | P.PN ---
Progress Note - Text Progress Note Date: 04/11/24 nterval History: Patient was seen laying in her bed today, and agreeable to speak with staff writer. Candace rodriguez was resting in bed, and sat up when staff writer spoke her name. 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 She then states that she wants to be better, and she claims the medications are not working. Door Operator explained to the patient that there is an improvement in her, patient them asked if she could have her trazodone back for night time, because it helps her sleep. Door Operator told patient it would be available for her tonight. She continues to state that she is feeling anxious, and she is not endorsing suicidal thoughts today. Claims that she did not sleep well last night. Denies any homicidal ideations. Patient denies any auditory, visual hallucinations and denies any paranoia or delusions. Patient denies any side effects from the medications and has been compliant with meds. MENTAL STATUS EXAM: General Appearance: Patient appears to be older than stated age, is alert, directable, and attempts to cooperate. Patient appears to have fair hygiene and grooming. Behavior: Patient is seated without any agitated behavior, anxious, nervous Speech: Patient's speech is fluent and nonpressured. Perseverating-mildly improving Mood/Affect: Patient reports their mood is "not good", affect is congruent and constricted. [place], improving mildly Suicidality/Homicidality: Patient denies having any homicidal ideation intent or plan. denies suicidal ideations, with no intent or plan Perceptions: Patient denies any visual hallucinations and denies any auditory hallucinations Though content/process: There is evidence of any delusional thought content and thought process is focused on anxiety about her rectum, this is improving mildly. Memory and concentration: AOX3, grossly intact for the purposes of this session. Judgment and insight: chronically poor, improving mildly IMPRESSIONS: schizophrenia suicidal ideation PLAN: -Patient is admitted under involuntary status to [facility]HU for stabilization of psychiatric symptoms and safety. Patient has not signed adult voluntary form and medication consent and is placed in patient's chart. Patient did defer with her hobbies and crafts sales representative. -Medications: clozapine 25 mg daily + 50mg qhs for psychosis and plan to titrate up to 75mg qhs starting 04/12. add trazodone 50mg qhs for sleep. sennakot 1 tablet bid for constipation. Zoloft 200 daily for mood/anxiety, Vistaril scheduled 50 mg twice daily for anxiety. -Ativan and Haldol PRN for agitation/aggression -NRT - nicotine patch -SW on board for discharge planning. Encourage patient to participate in groups to work on coping skills. Patient did defer with her hobbies and crafts sales representative. Patient will need long-term placement upon discharge.
[2024-04-11] MEDS: traZODone HCL 50 MG TAB PO SCH (20:30)
[2024-04-11] MEDS: AMOXIC-POT CLAV 875-125MG 1 EACH TAB PO SCH (20:30)
[2024-04-11] MEDS: cloZAPine 25 MG TAB PO ONE (20:31)
--- NOTE | 2024-04-12 10:17 | P.PN ---
Progress Note - Text Progress Note Date: 04/12/24 Interval History: Patient was seen laying in her bed today, and agreeable to speak with insurance underwriter. Patient immediately stated that "It is in my rectum" and she repeated it over and over. She continues to persevate on this. She states that "nothing is helping" and she cannot eat due to her rectum. She states he can not relax due to this either. She continues to state that she is feeling anxious, and she is not endorsing suicidal thoughts today. Claims that she did sleep well last night. Denies any homicidal ideations. Patient denies any auditory, visual hallucinations and denies any paranoia or delusions. Patient denies any side effects from the medications and has been compliant with meds. MENTAL STATUS EXAM: General Appearance: Patient appears to be older than stated age, is alert, directable, and attempts to cooperate. Patient appears to have fair hygiene and grooming. Behavior: Patient is seated without any agitated behavior, anxious, nervous, upset Speech: Patient's speech is fluent and nonpressured. Perseverating Mood/Affect: Patient reports their mood is "not good", affect is congruent and constricted. [place], improving mildly Suicidality/Homicidality: Patient denies having any homicidal ideation intent or plan. denies suicidal ideations, with no intent or plan Perceptions: Patient denies any visual hallucinations and denies any auditory hallucinations Though content/process: There is evidence of any delusional thought content and thought process is focused on anxiety about her rectum, this is improving mildly. Memory and concentration: AOX3, grossly intact for the purposes of this session. Judgment and insight: chronically poor, improving mildly IMPRESSIONS: schizophrenia suicidal ideation PLAN: -Patient is admitted under involuntary status to MHU for stabilization of psychiatric symptoms and safety. Patient has not signed adult voluntary form and medication consent and is placed in patient's chart. Patient did defer with her afternoon babysitter. -Medications: clozapine 25 mg daily + 75mg qhs for psychosis, trazodone 50mg qhs for sleep. sennakot 1 tablet bid for constipation. Zoloft 200 daily for mood/anxiety, Vistaril scheduled 50 mg twice daily for anxiety. -Ativan and Haldol PRN for agitation/aggression -NRT - nicotine patch -SW on board for discharge planning. Encourage patient to participate in groups to work on coping skills. Patient did defer with her afternoon babysitter. Patient will need custodial placement upon discharge.
[2024-04-12] MEDS: chlorproMAZINE 25 MG TAB PO STA (19:37)
[2024-04-12] MEDS: LORazepam 1 MG TAB PO STA (19:37)
[2024-04-12] MEDS: cloZAPine 25 MG TAB PO SCH (21:12)
[2024-04-13 09:36] LABS: Basophils % (A) 0 %; Eosinophils # (A) 0.1 k/uL (0-0.7); Eosinophils % (A) 1 %; HCT 46.8 % (34.0-46.0); HGB 14.2 gm/dL (11.4-16.0); Lymphocytes # (A) 2.4 k/uL (1.0-4.8); Lymphocytes % (A) 46 %; MCH 26.8 pg (25.0-35.0); MCHC 30.3 g/dL (31.0-37.0); MCV 88.5 fL (80.0-100.0); Mean Platelet Volume 8.8; Monocytes # (A) 0.4 k/uL (0-1.0); Monocytes % (A) 8 %; Neutrophils # (A) 2.2 k/uL (1.3-7.7); Neutrophils % (A) 43 %; Platelet Count 203 k/uL (150-450); RBC 5.29 m/uL (3.80-5.40); RDW 14.3 % (11.5-15.5); WBC 5.2 k/uL (3.8-10.6)
--- NOTE | 2024-04-13 11:43 | P.PN ---
Progress Note - Text Progress Note Date: 04/13/24 Interval History: Patient was seen laying in her bed today, and agreeable to speak with mortgage or loan underwriter. Patient states that she is "dying", because it is in my rectum. She continues to persevate on this. She claim that her bowel movement is white. Patient has not eaten much since arriving onto the unit, and has not lost weight. Strings Teacher will order an abd xray, to look for obstruction or impaction due to discomfort. She continues to state that she is feeling anxious, and she is not endorsing suicidal thoughts today. Claims that she did sleep well last night. Denies any homicidal ideations. Patient denies any auditory, visual hallucinations and denies any paranoia or delusions. Patient denies any side effects from the medications and has been compliant with meds. MENTAL STATUS EXAM: General Appearance: Patient appears to be older than stated age, is alert, directable, and attempts to cooperate. Patient appears to have fair hygiene and grooming. Behavior: Patient is seated without any agitated behavior, anxious, nervous, upset Speech: Patient's speech is fluent and nonpressured. Perseverating Mood/Affect: Patient reports their mood is "not good", affect is congruent and constricted. [place], improving mildly Suicidality/Homicidality: Patient denies having any homicidal ideation intent or plan. denies suicidal ideations, with no intent or plan Perceptions: Patient denies any visual hallucinations and denies any auditory hallucinations Though content/process: There is evidence of delusional thought content and thought process is focused on anxiety about her rectum, Memory and concentration: AOX3, grossly intact for the purposes of this session. Judgment and insight: chronically poor, improving mildly IMPRESSIONS: schizophrenia suicidal ideation PLAN: -Patient is admitted under involuntary status to MHU for stabilization of psychiatric symptoms and safety. Patient has not signed adult voluntary form and medication consent and is placed in patient's chart. Patient did defer with her assistant prosecuting attorney. -Medications: clozapine 25 mg daily + 75mg qhs for psychosis will increase to 100mg qhs tomorrow evening, trazodone 50mg qhs for sleep. sennakot 1 tablet bid for constipation. Zoloft 200 daily for mood/anxiety, Vistaril scheduled 50 mg twice daily for anxiety. -Ordered abdominal x-ray today for complaints of constipation and discomfort -Ativan and Haldol PRN for agitation/aggression -NRT - nicotine patch -SW on board for discharge planning. Encourage patient to participate in groups to work on coping skills. Patient did defer with her assistant prosecuting attorney. Patient will need penitentiary placement upon discharge.
--- NOTE | 2024-04-13 12:39 | XR ---
EXAMINATION TYPE: XR abdomen 2V DATE OF EXAM: 04/13/2024 COMPARISON: NONE HISTORY: Pain TECHNIQUE: One view abdominal series FINDINGS: The osseous structures are intact. The bowel gas pattern is nonspecific. Prominent bowel loop in the upper abdomen is seen with air-fluid level. Arthropathy of the hips. Calcifications in this pelvis a re too small to characterize. There is a punctate calcification could be within the course of the rig ht kidney on the right mid abdomen. Benign cyst involving the femoral neck could be related to hernia tion pit. IMPRESSION: 1. Nonspecific abdomen. Air fluid level with mildly prominent small bowel loops correlate for ileus or enteritis. Partial obstructive pattern not excluded. 2. Probable tiny right renal calculus.
[2024-04-13] MEDS: cloZAPine 25 MG TAB PO ONE (20:33)
--- NOTE | 2024-04-14 10:14 | P.PN ---
Progress Note - Text Progress Note Date: 04/14/24 Interval History: Patient was seen laying in her bed today, and agreeable to speak with board writer. Patient states that she is "about the same", she did appear to be mildly improving in terms of her preoccupiations and discomfort today. She continues to state that she is feeling very anxious, and depressed, and she is not endorsing suicidal thoughts today. Chuck Wagon Driver asked patient about different medications that could help with her anxiety. Patient stated "nothing helps". Today, she claims her stool is black. Chuck Wagon Driver reviewed ABD xray, and will have Internal Medicine come and see the patient. Patient is not stating "it's in my rectum" today. Claims that she did sleep well last night. Denies any homicidal ideations. Patient denies any auditory, visual hallucinations and denies any paranoia or delusions. Patient denies any side effects from the medications and has been compliant with meds. MENTAL STATUS EXAM: General Appearance: Patient appears to be older than stated age, is alert, directable, and attempts to cooperate. Patient appears to have fair hygiene and grooming. Behavior: Patient is seated without any agitated behavior, anxious, nervous, upset Speech: Patient's speech is fluent and nonpressured. Perseverating Mood/Affect: Patient reports their mood is "anxious and depressed", affect is congruent and constricted. [place], improving mildly Suicidality/Homicidality: Patient denies having any homicidal ideation intent or plan. denies suicidal ideations, with no intent or plan Perceptions: Patient denies any visual hallucinations and denies any auditory hallucinations Though content/process: There is no evidence of delusional thought content and thought process concrete. Memory and concentration: AOX3, grossly intact for the purposes of this session Judgment and insight: chronically poor, improving mildly IMPRESSIONS: schizophrenia suicidal ideation PLAN: -Patient is admitted under involuntary status to MHU for stabilization of psychiatric symptoms and safety. Patient has not signed adult voluntary form and medication consent and is placed in patient's chart. Patient did defer with her civil litigation attorney. -Medications: clozapine 25 mg daily + 100mg qhs for psychosis, trazodone 50mg qhs for sleep. sennakot 1 tablet bid for constipation. Zoloft 200 daily for moo d/anxiety, Vistaril scheduled 50 mg twice daily for anxiety. Add klonopin 0.5mg at 0900 and 1400 for anxiety -Chuck Wagon Driver reviewed xray, will have Internal Medicine come see the patient. possible obstruction or ileus. -Ativan and Haldol PRN for agitation/aggression -NRT - nicotine patch -SW on board for discharge planning. Encourage patient to participate in groups to work on coping skills. Patient did defer with her civil litigation attorney. Patient will need shelter placement upon discharge.
[2024-04-14] MEDS: clonazePAM 0.5 MG TAB PO SCH (10:19)
[2024-04-14] MEDS: cloZAPine 100 MG TAB PO SCH (20:03)
--- NOTE | 2024-04-15 10:16 | P.PN ---
Progress Note - Text Progress Note Date: 04/15/24 Interval History: Patient was seen laying in her bed today, and agreeable to speak with telegraphic typewriter installer. Patient states that she is "really bad". Patient complaining of severe flank pain. Peripatologist examined patient to see where the pain is. Will order a UA to r/o infection, consider ordering an ultrasound to r/o kidney stones. Claims that she did sleep well last night. She is still not eating much. Patient states she wants to hurt herself because of her anxious rectum. Denies any homicidal ideations. Patient denies any auditory, visual hallucinations and denies any paranoia or delusions. Patient denies any side effects from the medications and has been compliant with meds. MENTAL STATUS EXAM: General Appearance: Patient appears to be older than stated age, is alert, directable, and attempts to cooperate. Patient appears to have poor hygiene and grooming. Behavior: Patient is seated without any agitated behavior, anxious, nervous, upset Speech: Patient's speech is fluent and nonpressured. Perseverating, mildly improving Mood/Affect: Patient reports their mood is "anxious and depressed", affect is congruent and constricted. [place], improving mildly Suicidality/Homicidality: Patient denies having any homicidal ideation intent or plan. endorsing suicidal ideations, with no intent or plan Perceptions: Patient denies any visual hallucinations and denies any auditory hallucinations Though content/process: There is no evidence of delusional thought content and thought process concrete. Memory and concentration: AOX3, grossly intact for the purposes of this session Judgment and insight: chronically poor, improving mildly IMPRESSIONS: schizophrenia suicidal ideation PLAN: -Patient is admitted under involuntary status to [facility] for stabilization of psychiatric symptoms and safety. Patient has not signed adult voluntary form and medication consent and is placed in patient's chart. Patient did defer with her city attorney. -Medications: clozapine 25 mg daily + 100mg qhs for psychosis, trazodone 50mg qhs for sleep. sennakot 1 tablet bid for constipation. Zoloft 200 daily for mood/anxiety, Vistaril scheduled 50 mg twice daily for anxiety. increase klonopin 1mg at 0900 and 1400 for anxiety -Order UA, and consider ultrasound of the kidneys to r/o stones -Ativan and Haldol PRN for agitation/aggression -NRT - nicotine patch -SW on board for discharge planning. Encourage patient to participate in groups to work on coping skills. Patient did defer with her city attorney. Patient will need [place] [facility] upon discharge.
[2024-04-15] MEDS: clonazePAM 1 MG TAB PO SCH (14:00)
[2024-04-15 20:50] LABS: Appearance,Urine Clear (Clear); Bilirubin,Urine Negative (Negative); Blood,Urine Negative (Negative); Color,Urine Colorless; Glucose,Urine (UA) Negative (Negative); Hyaline Casts,Urine 1 /lpf (0-2); Ketones,Urine Negative (Negative); Leukocyte Esterase,Urine Small (Negative); Mucus,Urine Rare /hpf; Nitrite,Urine Negative (Negative); PH, Urine 6.5 (5.0-8.0); Protein,Urine Negative (Negative); RBC,Urine <1 /hpf (0-5); Specific Gravity,Urine 1.009 (1.001-1.035); Squamous Epithelial Cell,Urine <1 /hpf (0-4); Urobilinogen,Urine <2.0 mg/dL (<2.0); WBC,Urine 2 /hpf (0-5)
--- NOTE | 2024-04-16 12:36 | P.PN ---
Subjective Progress Note Date: 04/16/24 Principal diagnosis: Delusional disorder Patient was seen laying in her bed today, she got up and came to speak with resume writer. The patient is delusionally preoccupied with there being something wrong with her poop. She says what ever it is a gets worse when she eats so she hasn't been eating and makes her terribly anxious and she can go on like this anymore. She can't tell me what's wrong with the pupil why it bothers her so much. She said all started about a month and a half ago but can't think of any particular stress going on in her life at that time. Claims that she did sleep well last night. She is still not eating much. Patient states she wants to hurt herself because of her anxious rectum. Denies any homicidal ideations. Patient denies any auditory, visual hallucinations and denies any paranoia or delusions. Patient denies any side effects from the medications and has been compliant with meds. Objective: oriented to person place time and circumstances is not seeing things or hearing things but has been overwhelmingly powerful anxious reaction to thou ghts about her feces. General Appearance: Patient appears to be older than stated age, is alert, dir ectable, and attempts to cooperate. Patient appears to have poor hygiene and grooming. Behavior: She fidgets that she sets and eye contact is decreased Speech: Patient's speech is . Perseverating on the pupil patient. Mood/Affect: Patient reports their mood is "anxious and depressed", affect is congruent and constricted. [place], improving mildly Suicidality/Homicidality: Patient denies having any homicidal ideation intent or plan. endorsing suicidal ideations, with no intent or plan Perceptions: Patient denies any visual hallucinations and denies any auditory hallucinations Though content/process: There is no evidence of bizarre delusional thought content and thought process concrete. Her delusions fit with the delusional disorder where there are things that are remotely possible but highly unlikely and do not fit any true medical pattern. However by getting quite focused and agitated about them the patient can avoid all life responsibility. Memory and concentration: AOX3, grossly intact for the purposes of this session Judgment and insight: chronically poor. Assessment Delusional disorder. This pattern is resistant even to antipsychotics although they do take the edge off the only thing that works in the long run if the patient agrees that no one is going to agree with her and that focusing on this issue simply makes her more miserable cerebrovascular agree to disagree and then get on with her life. She does not seem to be anywhere near that point. She is on Klonopin she is on cause of pain but the anxiety isn't true anxiety it's more and ego-syntonic focus that allows her to avoid life and so the anti-anxiety medicines don't help much. suicidal ideation PLAN: -Patient is admitted under involuntary status to [facility]HU for stabilization of psychiatric symptoms and safety. Patient has not signed adult voluntary form and medication consent and is placed in patient's chart. Patient did defer with her state's attorney. -Medications: Increase causing pain to 20 5 in the morning and 150 at night trazodone 50mg qhs for sleep. sennakot 1 tablet bid for constipation. Zoloft 200 daily for mood/anxiety, Vistaril scheduled 50 mg twice daily for anxiety. increase klonopin 1mg at 0900 and 1400 for anxiety -Order UA, and consider ultrasound of the kidneys to r/o stones -Ativan and Haldol PRN for agitation/aggression -NRT - nicotine patch -SW on board for discharge planning. Encourage patient to participate in groups to work on coping skills. Patient did defer with her state's attorney. Patient will need [facility] placement upon discharge. Objective - Vital Signs Vital signs: Vital Signs Temp 98.2 F 04/16/24 09:02 Pulse 133 H 04/16/24 09:02 Resp 20 04/16/24 09:02 BP 127/80 04/16/24 09:02 Pulse Ox 96 04/16/24 09:02 FiO2 Intake & Output 04/15/24 04/16/24 04/16/24 18:59 06:59 18:59 Other: # Voids 1 - Labs CBC & Chem 7: 04/13/24 08:45 04/06/24 17:44 Labs: Abnormal Lab Results - Last 24 Hours (Table) 04/15/24 Range/Units 20:35 Ur Leukocyte Esterase Small H (Negative) Urine Mucus Rare H (None) /hpf
[2024-04-16] MEDS: cloZAPine 100 MG TAB PO SCH (20:38)
--- NOTE | 2024-04-17 10:20 | US ---
EXAMINATION TYPE: US kidneys/renal and bladder DATE OF EXAM: 04/17/2024 COMPARISON: Xray CLINICAL INDICATION: Female, 58 years old with history of possible renal calculi; Abnormal xray EXAM MEASUREMENTS: Right Kidney: 9.5 x 4.7 x 4.0 cm Left Kidney: 9.6 x 4.7 x 4.4 cm Right Kidney: No hydronephrosis or masses seen, lower pole gassed out Left Kidney: No evidence of hydro, limited views due to overlying bowel gas Bladder: MHU pt, not prepped to fill bladder There is no evidence for hydronephrosis at this point in time. No nephrolithiasis is seen. No almita s are identified. The urinary bladder is anechoic. Bilateral ureteral jets are seen. IMPRESSION: No evidence for obstructive uropathy or renal calculus.
--- NOTE | 2024-04-17 13:03 | P.PN ---
Subjective Progress Note Date: 04/17/24 Principal diagnosis: Delusional disorder Patient was seen walking the halls but came readily to talk but soon got up and said that, " I have to go" and left The patient is delusionally preoccupied with there being something wrong with her poop or that she has a UTI. Her first sentence was, "I've got something sticking out my rectum" She says what ever it is it gets worse when she eats so she hasn't been eating and makes her terribly anxious and she can not go on like this anymore. She can't tell me what's wrong with the poop or why it bothers her so much. She said all started about a month and a half ago, but can't think of any particular stress going on in her life at that time. Claims that she did sleep well last night. She is still not eating much. Patient states she wants to hurt herself because of her anxious rectum. Denies any homicidal ideations. Patient denies any auditory, visual hallucinations and denies any paranoia or delusions. Patient denies any side effects from the medications and has been compliant with meds. Objective: oriented to person place time and circumstances is not seeing things or hearing things but has been overwhelmingly powerful anxious reaction to thoughts about her feces. General Appearance: Patient appears to be older than stated age, is alert, directable, and attempts to cooperate. Patient appears to have poor hygiene and grooming. Behavior: She fidgets that she sets and eye contact is decreased Speech: Patient's speech is . Perseverating on the pupil patient. Mood/Affect: Patient reports their mood is "anxious and depressed", affect is congruent and constricted. [place], Suicidality/Homicidality: Patient denies having any homicidal ideation intent or plan. endorsing suicidal ideations, with no intent or plan Perceptions: Patient denies any visual hallucinations and denies any auditory hallucinations Though content/process: There is no evidence of bizarre delusional thought content and thought process concrete. Her delusions fit with the delusional disorder where there are things that are remotely possible but highly unlikely and do not fit any true medical pattern. However by getting quite focused and agitated about them the patient can avoid all life responsibility. Memory and concentration: AOX3, grossly intact for the purposes of this session Judgment and insight: chronically poor. Assessment I increased the Clozaril a little bit better anxiety is still intense and these somatic delusions don't tend to respond to antipsychotics in the Delusional disorder. This pattern is resistant even to antipsychotics although they do take the edge off the only thing that works in the long run if the patient agrees that no one is going to agree with her and that focusing on this issue simply makes her more miserable cerebrovascular agree to disagree and then get on with her life. She does not seem to be anywhere near that point. She is on Klonopin she is on cause of pain but the anxiety isn't true anxiety it's more and ego-syntonic focus that allows her to avoid life and so the anti-anxiety medicines don't help much. suicidal ideation PLAN: -Patient is admitted under involuntary status to MHU for stabilization of psychiatric symptoms and safety. Patient has not signed adult voluntary form and medication consent and is placed in patient's chart. Patient did defer with her ip attorney. -Medications: Increase causing pain to 20 5 in the morning and 150 at night trazodone 50mg qhs for sleep. sennakot 1 tablet bid for constipation. Zoloft 200 daily for mood/anxiety, Vistaril scheduled 50 mg twice daily for anxiety. increase klonopin 1mg at 0900 and 1400 for anxiety -Order UA, and consider ultrasound of the kidneys to r/o stones -Ativan and Haldol PRN for agitation/aggression -NRT - nicotine patch -SW on board for discharge planning. Encourage patient to participate in groups to work on coping skills. Patient did defer with her ip attorney. Patient will need senior care placement upon discharge. Objective - Vital Signs Vital signs: Vital Signs Temp 97.5 F L 04/17/24 06:54 Pulse 82 04/17/24 06:54 Resp 14 04/17/24 06:54 BP 110/57 04/17/24 06:54 Pulse Ox 97 04/16/24 14:14 FiO2 - Labs CBC & Chem 7: 04/13/24 08:45 04/06/24 17:44
--- NOTE | 2024-04-18 11:59 | P.PN ---
Progress Note - Text Progress Note Date: 04/18/24 Interval History: Patient was seen laying in her bed today, and agreeable to speak with bond writer. Patient states that she is "not doing good". Patient continues to state "it's in my rectum" When asked what is in there, she exclaims, "WHATEVER IS GOING ON, I CAN'T TAKE IT ANYMORE". Claims that she did not sleep well last night. She is still not eating much. Patient states she wants to hurt herself because of her anxious rectum. Denies any homicidal ideations. Patient denies any auditory, visual hallucinations and denies any paranoia or delusions. Patient denies any side effects from the medications and has been compliant with meds. MENTAL STATUS EXAM: General Appearance: Patient appears to be older than stated age, is alert, directable, and attempts to cooperate. Patient appears to have poor hygiene and grooming. Behavior: Patient is seated without any agitated behavior, anxious, nervous, upset, fixated on her rectum Speech: Patient's speech is fluent and nonpressured. Perseverating Mood/Affect: Patient reports their mood is "anxious and depressed", affect is congruent and constricted. [place] Suicidality/Homicidality: Patient denies having any homicidal ideation intent or plan. endorsing suicidal ideations, with no intent or plan Perceptions: Patient denies any visual hallucinations and denies any auditory hallucinations Though content/process: There is no evidence of delusional thought content and thought process concrete. Memory and concentration: AOX3, grossly intact for the purposes of this session Judgment and insight: chronically poor IMPRESSIONS: schizophrenia suicidal ideation PLAN: -Patient is admitted under involuntary status to MHU for stabilization of psychiatric symptoms and safety. Patient has not signed adult voluntary form and medication consent and is placed in patient's chart. Patient did defer with her commercial real estate attorney. -Medications: clozapine 25 mg daily + 150mg qhs for psychosis will increase as tolerated, trazodone 50mg qhs for sleep. sennakot 1 tablet bid for constipation. Zoloft 200 daily for mood/anxiety, Vistaril scheduled 50 mg twice daily for anxiety. d/c klonopin and replace with Ativan scheduled 1mg 0900 and 1400 for anxiety -Ativan and Haldol PRN for agitation/aggression -NRT - nicotine patch -SW on board for discharge planning. Encourage patient to participate in groups to work on coping skills. Patient did defer with her commercial real estate attorney. Patient will need jail placement upon discharge.
[2024-04-18] MEDS: LORazepam 1 MG TAB PO SCH (15:01)
--- NOTE | 2024-04-19 09:56 | P.PN ---
Progress Note - Text Progress Note Date: 04/19/24 Interval History: Patient was seen laying in her bed today, and agreeable to speak with repairer typewriter. Patient states that she is "not doing good". Patient continues to state "it's in my rectum" When asked what is in there, she exclaims, "MY POOP IS ANXIOUS". She is very focused on her rectum. Will possibly consider getting the patient scoped, upper and lower. She states that the medications are not helping her. Patient appears very anxious. Claims that she did not sleep well last night. She is still not eating much. Patient states she wants to hurt herself because of her anxious rectum. Denies any homicidal ideations. Patient denies any auditory, visual hallucinations and denies any paranoia or delusions. Patient denies any side effects from the medications and has been compliant with meds. MENTAL STATUS EXAM: General Appearance: Patient appears to be older than stated age, is alert, di rectable, and attempts to cooperate. Patient appears to have poor hygiene and grooming. Behavior: Patient is seated without any agitated behavior, anxious, nervous, upset, fixated on her rectum Speech: Patient's speech is fluent and nonpressured. Perseverating Mood/Affect: Patient reports their mood is "anxious", affect is congruent and constricted. [place] Suicidality/Homicidality: Patient denies having any homicidal ideation intent or plan. endorsing suicidal ideations, with no intent or plan Perceptions: Patient denies any visual hallucinations and denies any auditory hallucinations Though content/process: There is no evidence of delusional thought content and thought process concrete. Memory and concentration: AOX3, grossly intact for the purposes of this session Judgment and insight: chronically poor IMPRESSIONS: schizophrenia suicidal ideation PLAN: -Patient is admitted under involuntary status to MHU for stabilization of psychiatric symptoms and safety. Patient has not signed adult voluntary form and medication consent and is placed in patient's chart. Patient did defer with her employment law attorney. -Medications: increase clozapine 50 mg daily + 150mg qhs for psychosis will inc rease as tolerated, trazodone 50mg qhs for sleep. sennakot 1 tablet bid for constipation. Zoloft 200 daily for mood/anxiety, Vistaril scheduled 50 mg twice daily for anxiety. Ativan scheduled 1mg 0900 and 1400 for anxiety -Ativan and Haldol PRN for agitation/aggression -NRT - nicotine patch -SW on board for discharge planning. Encourage patient to participate in groups to work on coping skills. Patient did defer with her employment law attorney. Patient will need penitentiary placement upon discharge.
[2024-04-19] MEDS: cloZAPine 25 MG TAB PO ONE (10:05)
[2024-04-20] MEDS: cloZAPine 25 MG TAB PO SCH (08:22)
[2024-04-20 08:55] LABS: Basophils % (A) 1 %; Eosinophils # (A) 0.1 k/uL (0-0.7); Eosinophils % (A) 1 %; HCT 47.8 % (34.0-46.0); HGB 14.5 gm/dL (11.4-16.0); Lymphocytes # (A) 2.3 k/uL (1.0-4.8); Lymphocytes % (A) 44 %; MCH 26.7 pg (25.0-35.0); MCHC 30.3 g/dL (31.0-37.0); MCV 88.2 fL (80.0-100.0); Mean Platelet Volume 8.7; Monocytes # (A) 0.3 k/uL (0-1.0); Monocytes % (A) 6 %; Neutrophils # (A) 2.4 k/uL (1.3-7.7); Neutrophils % (A) 45 %; Platelet Count 178 k/uL (150-450); RBC 5.42 m/uL (3.80-5.40); RDW 14.1 % (11.5-15.5); WBC 5.3 k/uL (3.8-10.6)
--- NOTE | 2024-04-20 11:19 | P.PN ---
Progress Note - Text Progress Note Date: 04/20/24 Interval History: Patient was seen laying in her bed today, and agreeable to speak with commercial lines underwriter. Patient states that she is "terrible". Patient does not mention anything about her rectum today. She seems much less preoccupied with this.. Patient does appear very anxious. States that she has not had a bowel movement yet today. Claims that she 'sorta' slept last night. She is still not eating much. Patient appears withdrawn. She has been isolating to her room. Denies any suicidal or homicidal ideations. Patient denies any auditory, visual hallucinations and denies any paranoia or delusions. Patient denies any side effects from the medications and has been compliant with meds. MENTAL STATUS EXAM: General Appearance: Patient appears to be older than stated age, is alert, directable, and attempts to cooperate. Patient appears to have poor hygiene and grooming. Behavior: Patient is seated without any agitated behavior, anxious, nervous, upset, less fixated on her rectum, withdrawn, isolating Speech: Patient's speech is fluent and nonpressured. Mood/Affect: Patient reports their mood is "terrible", affect is congruent and constricted. [place] Suicidality/Homicidality: Patient denies having any homicidal ideation intent or plan. endorsing suicidal ideations, with no intent or plan Perceptions: Patient denies any visual hallucinations and denies any auditory hallucinations Though content/process: There is no evidence of delusional thought content and thought process concrete. Memory and concentration: AOX3, grossly intact for the purposes of this session Judgment and insight: chronically poor IMPRESSIONS: schizophrenia suicidal ideation PLAN: -Patient is admitted under involuntary status to MHU for stabilization of psychiatric symptoms and safety. Patient has not signed adult voluntary form and medication consent and is placed in patient's chart. Patient did defer with her state's attorney. -Medications: clozapine 50 mg daily + 150mg qhs for psychosis will increase as tolerated, trazodone 50mg qhs for sleep. sennakot 1 tablet bid for constipation. Zoloft 200 daily for mood/anxiety, Vistaril scheduled 50 mg twice daily for anxiety. Ativan scheduled 1mg 0900 and 1400 for anxiety -Ativan and Haldol PRN for agitation/aggression -NRT - nicotine patch -SW on board for discharge planning. Encourage patient to participate in groups to work on coping skills. Patient did defer with her state's attorney. Patient will need correction placement upon discharge.
--- NOTE | 2024-04-21 11:21 | P.PN ---
Progress Note - Text Progress Note Date: 04/21/24 Interval History: Patient was seen laying in her bed today, and agreeable to speak with information writer. Patient states that she is "really bad". Patient does mention her anxious rectum today. She speaks in a very anxious manner. She asks about going home. Audograph Operator told the patient that we need her to be more stable prior to discharge. Patient does appear very anxious. States that she has had a bowel movement. It was sent to the lab, and tested negative for occult blood. Claims that she slept last nig ht. She is still not eating much. Patient appears withdrawn. She has been isolating to her room. Denies any suicidal or homicidal ideations. Patient denies any auditory, visual hallucinations and denies any paranoia or delusions. Patient denies any side effects from the medications and has been compliant with meds. MENTAL STATUS EXAM: General Appearance: Patient appears to be older than stated age, is alert, directable, and attempts to cooperate. Patient appears to have poor hygiene and grooming. Behavior: Patient is seated without any agitated behavior, anxious, nervous, upset, less fixated on her rectum, withdrawn, isolating Speech: Patient's speech is fluent and nonpressured. anxious Mood/Affect: Patient reports their mood is "terrible", affect is congruent and constricted. [place] Suicidality/Homicidality: Patient denies having any homicidal ideation intent or plan. endorsing suicidal ideations, with no intent or plan Perceptions: Patient denies any visual hallucinations and denies any auditory hallucinations Though content/process: There is no evidence of delusional thought content and thought process concrete. Memory and concentration: AOX3, grossly intact for the purposes of this session Judgment and insight: chronically poor IMPRESSIONS: schizophrenia suicidal ideation PLAN: -Patient is admitted under involuntary status to MHU for stabilization of psychiatric symptoms and safety. Patient has not signed adult voluntary form and medication consent and is placed in patient's chart. Patient did defer with her director it. -Medications: increase clozapine 50 mg daily + 175mg qhs for psychosis will increase as tolerated, trazodone 50mg qhs for sleep. sennakot 1 tablet bid for constipation. Zoloft 200 daily for mood/anxiety, Vistaril scheduled 50 mg twice daily for anxiety. Ativan scheduled 1mg 0900 and 1400 for anxiety -Ativan and Haldol PRN for agitation/aggression -Will order GI consult today for black stools and complaints of abdominal pain. -NRT - nicotine patch -SW on board for discharge planning. Encourage patient to participate in groups to work on coping skills. Patient did defer with her director it. Patient will need [facility] placement upon discharge.
[2024-04-21] MEDS: cloZAPine 25 MG TAB PO SCH ×2 (11:34→20:12)
[2024-04-21] MEDS: cloZAPine 100 MG TAB PO SCH (20:12)
[2024-04-22] MEDS: PANTOPRAZOLE 40 MG TABLET PO SCH (07:49)
--- NOTE | 2024-04-22 08:28 | P.CONS ---
History of Present Illness - Reason for Consult Consult date: 04/22/24 Abdominal pain and black stools Requesting physician: Gregory Kelly - Chief Complaint Suicidal, anxious rectum - History of Present Illness This is a 58-year-old female who was admitted on 03/29/2024 to the mental health unit for concerns for patient being suicidal with a history of schizophrenia. Apparently patient has been complaining of her rectum being anxious and states that this has been going on for over a year. She is very focused her rectum being "anxious" as pressure there as well as complaints of some lower abdominal discomfort. Reportedly had a dark stool. States that she has not had a bowel movement today. She usually goes every 4 days. Problems with constipation. States that she had a colonoscopy 6 months ago she is unsure where but states that they were not able to evaluate the entire colon because she had a poor prep. She denies any upper abdominal pain, has nausea but no vomiting. States she is not eating because her rectum is anxious. Normal hemoglobin from 2 days ago was 14.5. Occult stool negative. She has been on stool softeners and Senokot which she states is not helping. Review of Systems REVIEW OF SYSTEMS: CARDIOPULMONARY: No chest pain or shortness of breath. Gastrointestinal: Abdominal pain. Nausea, no vomiting. No hematemesis, coffee- ground emesis. No rectal bleeding, or melena. Chronic constipation. GENITOURINARY: No dysuria or hematuria. MUSCULOSKELETAL: Reports normal range of motion. SKIN: No rashes. No jaundice. ENDOCRINE: No chills, fevers. No excessive weight gain or loss. No polydipsia or polyuria. PSYCHIATRIC: Anxious, schizophrenic. NEUROLOGY: No change in mental status. Denies dizziness, headache. ENT: Vision unremarkable. CONSTITUTIONAL: No recent weight loss. No fever, chills, night sweats. Past Medical History Past Medical History: Hypertension Additional Past Medical History / Comment(s): Demonstrating s/s of tardive dyskinesia AEB lifting legs up and down while standing and facial movements. History of Any Multi-Drug Resistant Organisms: None Reported Past Surgical History: Section Additional Past Surgical History / Comment(s): x 2 Past Anesthesia/Blood Transfusion Reactions: No Reported Reaction Past Psychological History: Schizoaffective Disorder Smoking Status: Never smoker Past Alcohol Use History: None Reported Past Drug Use History: None Reported Medications and Allergies Home Medications Medication Instructions Recorded Confirmed Type Metoprolol Tartrate [Lopressor] 25 mg PO BID 03/29/24 03/29/24 History Sertraline [Zoloft] 200 mg PO DAILY 03/29/24 03/29/24 History cloZAPine [Clozaril] 100 mg PO BID 03/29/24 03/29/24 History haloperidoL [Haldol] 5 mg PO TID 03/29/24 03/29/24 History hydrOXYzine pamoate [Vistaril] 50 mg PO TID 03/29/24 03/29/24 History traZODone HCL [Desyrel] 100 mg PO HS 03/29/24 03/29/24 History Allergies Allergy/AdvReac Type Severity Reaction Status Date / Time aripiprazole [From Abilify] Allergy Mild Unknown Verified 03/29/24 09:45 Physical Exam Vitals: Vital Signs Temp Pulse Resp BP 04/21/24 08:14 96.7 F L 106 H 16 140/68 General appearance: The patient is alert, oriented, very anxious appearing, appears in no acute distress. HET: Head is normocephalic and atraumatic. Conjunctiva pink. Sclera anicteric. Neck: Supple without lymphadenopathy. Trachea midline. Heart: Regular. Lungs: Equal expansion, normal respiratory effort. Abdomen: Soft, lower abdominal tenderness with palpation. Nondistended. Skin: No rashes. No jaundice. Extremities: Normal skin color and turgor. No pedal edema. Neurological: No focal deficits. Alert and oriented. Patient is very anxious appearing. Results CBC & Chem 7: 04/20/24 07:46 04/06/24 17:44 Comments: Abdominal x-ray 04/13/2024 reported nonspecific abdomen. Air-fluid level with mildly prominent small bowel loops correlate for ileus or enteritis. Partial obstructive pattern not excluded. Probable tiny right renal calculus. Abdominal x-ray: report reviewed Assessment and Plan (1) Abdominal pain Narrative/Plan: 58-year-old female with a history of chronic constipation complaints of "anxious rectum" which is likely secondary from constipation. Abdominal pain is in the lower abdomen nonacute abdomen noted. Patient has history of anxiety and schizophrenia her symptoms may be using secondary to IBS constipation. Will discontinue Senokot, and MiraLAX daily may titrate to twice daily as needed for daily bowel regimen. Symptomatic treatment with Protonix for abdominal pain. Current Visit: Yes Status: Acute Code(s): R10.9 - UNSPECIFIED ABDOMINAL PAIN SNOMED Code(s): 35130251 (2) Constipation Current Visit: Yes Status: Acute Code(s): K59.00 - CONSTIPATION, UNSPECIFIED SNOMED Code(s): 47995934 (3) Schizophrenia Current Visit: Yes Status: Acute Code(s): F20.9 - SCHIZOPHRENIA, UNSPECIFIED SNOMED Code(s): 12663354 Plan: 1. Continue symptomatic and supportive care 2. Will add Protonix 40 mg daily 3. Discontinue senna, add MiraLAX daily, can titrate to twice a day as needed for daily bowel regimen 4. Encourage ambulation 5. Encourage oral intake of water 6. No plans on endoscopic evaluation 7. Patient is medically cleared to remain in mental health unit. Thank you for this consultation, we will sign off at this time. Dr. Jorge A Martinez I agree with the dictator's note, documented as a scribe by Luly Adams.
--- NOTE | 2024-04-22 11:11 | P.PN ---
Progress Note - Text Progress Note Date: 04/22/24 Interval History: Patient was seen laying in her bed today, and agreeable to speak with racebook writer. Patient states that she is "doing terrible". Patient does mention her anxious rectum today. She speaks in a very anxious manner. She states that the nurse gave her medication that made "it" worse. GI was consulted, they d/c'd the Sennakot, and added MiraLax. Claims that she sorta slept last night. She is still not eating much. Patient appears withdrawn. She has been isolating to her room. Endorses suicidal ideations, she stated she wants to , no plan or intent. Denies homicidal ideations. Patient denies any auditory, visual hallucinations and denies any paranoia or delusions. Patient denies any side effects from the medications and has been compliant with meds. MENTAL STATUS EXAM: General Appearance: Patient appears to be older than stated age, is alert, directable, and attempts to cooperate. Patient appears to have poor hygiene and grooming. Behavior: Patient is seated without any agitated behavior, anxious, nervous, upset, less fixated on her rectum, withdrawn, isolating Speech: Patient's speech is fluent and nonpressured. anxious Mood/Affect: Patient reports their mood is "terrible", affect is congruent and constricted. [place] Suicidality/Homicidality: Patient denies having any homicidal ideation intent or plan. endorsing suicidal ideations, with no intent or plan Perceptions: Patient denies any visual hallucinations and denies any auditory hallucinations Though content/process: There is no evidence of delusional thought content and thought process concrete. Memory and concentration: AOX3, grossly intact for the purposes of this session Judgment and insight: chronically poor IMPRESSIONS: schizophrenia suicidal ideation PLAN: -Patient is admitted under involuntary status to MHU for stabilization of psychiatric symptoms and safety. Patient has not signed adult voluntary form and medication consent and is placed in patient's chart. Patient did defer with her regulation supervisor. -Medications: clozapine 50 mg daily + 175mg qhs for psychosis will increase as tolerated,(please increase to 200mg qhs Thursday). trazodone 50mg qhs for sleep. d/c sennakot . Zoloft 200 daily for mood/anxiety, Vistaril scheduled 50 mg twice daily for anxiety. Ativan scheduled 1mg 0900 and 1400 for anxiety -Ativan and Haldol PRN for agitation/aggression -appreciate recommendations from GI, will not scope at this time and treating for constipation -NRT - nicotine patch -SW on board for discharge planning. Encourage patient to participate in groups to work on coping skills. Patient did defer with her regulation supervisor. Patient will need penitentiary placement upon discharge. hopeful for discharge sometime next week once either penitentiary or [facility] placement is found
[2024-04-22] MEDS: polyethylene glycoL 3350 17 GM POWD.PACK PO SCH (14:52)
--- NOTE | 2024-04-23 18:41 | P.PN ---
Progress Note - Text Progress Note Date: 04/23/24 Interval History: Patient was seen laying in her bed today, and agreeable to speak with sba underwriter. Patient states that she is "doing terrible". Patient does mention her "anxious rectum" today. She speaks in a very anxious manner. patient reports having had a bowel movement today. She is agreeable with reporting to nursing staff of future bowel movements. She is still not eating much. Patient appears withdrawn. She has been isolating to her room. Endorses suicidal ideations, she stated she wants to , no plan or intent. Denies homicidal ideations. Patient denies any auditory, visual hallucinations and denies any paranoia or delusions. Patient denies any side effects from the medications and has been compliant with meds. MENTAL STATUS EXAM: General Appearance: Patient appears to be older than stated age, is alert, directable, and attempts to cooperate. Patient appears to have poor hygiene and grooming. Behavior: Patient is seated without any agitated behavior, anxious, nervous, upset, less fixated on her rectum, withdrawn, isolating Speech: Patient's speech is fluent and nonpressured. anxious Mood/Affect: Patient reports their mood is "terrible", affect is congruent. [place] Suicidality/Homicidality: Patient denies having any homicidal ideation intent or plan. endorsing suicidal ideations, with no intent or plan Perceptions: Patient denies any visual hallucinations and denies any auditory hallucinations Though content/process: There is no evidence of delusional thought content and thought process concrete. Memory and concentration: AOX3, grossly intact for the purposes of this session Judgment and insight: chronically poor IMPRESSIONS: schizophrenia suicidal ideation PLAN: -Patient is admitted under involuntary status to MHU for stabilization of psychiatric symptoms and safety. Patient has not signed adult voluntary form and medication consent and is placed in patient's chart. Patient did defer with her patent prosecution attorney. -Medications: clozapine 50 mg daily + 175mg qhs for psychosis -will hold off on increasing to prevent any possible worsening of clozapine-induced constipation trazodone 50mg qhs for sleep. Zoloft 200 daily for mood/anxiety, Vistaril scheduled 50 mg twice daily for anxiety. Ativan scheduled 1mg 0900 and 1400 for anxiety -RNs to document occurrence of any future bowel movements - will consider augmenting with another antipsychotic if constipation persists despite treatment -Ativan and Haldol PRN for agitation/aggression -appreciate recommendations from GI- currently treating for constipation -NRT - nicotine patch -SW on board for discharge planning. Encourage patient to participate in groups to work on coping skills. Patient did defer with her patent prosecution attorney. Patient will need [facility] placement upon discharge. hopeful for discharge sometime next week once either [facility] or [facility] placement is found
--- NOTE | 2024-04-24 16:36 | P.PN ---
Progress Note - Text Progress Note Date: 04/24/24 Interval History: Patient was seen laying in her bed today, and agreeable to speak with instructional writer. Patient states that she is "doing terrible". Patient does mention her "anxious rectum" today. She speaks in a very anxious manner. Per nursing note, patient has been having a bowel movement daily. She is still not eating much and is agreeable with trying Ensure. Patient appears withdrawn. She has been isolating to her room. Endorses suicidal ideations, she stated she wants to , no plan or intent. Denies homicidal ideations. Patient denies any visual hallucinations and denies any paranoia or delusions. Patient denies any side effects from the medications and has been compliant with meds. She denies any auditory hallucinations today but is paranoid. Vital Signs Temp 97.1 F L 04/23/24 06:00 Pulse 89 04/24/24 07:10 Resp 17 04/23/24 06:00 BP 108/56 04/24/24 07:10 Pulse Ox 97 04/23/24 06:00 FiO2 Intake & Output 04/23/24 04/24/24 04/24/24 18:59 06:59 18:59 Intake Total 591 Balance 591 Intake: Oral 591 MENTAL STATUS EXAM: General Appearance: Patient appears to be older than stated age, is alert, directable, and attempts to cooperate. Patient appears to have poor hygiene and grooming. Behavior: Patient is seated without any agitated behavior, anxious, nervous, upset, less fixated on her rectum, withdrawn, isolating Speech: Patient's speech is fluent and nonpressured. anxious Mood/Affect: Patient reports their mood is "terrible", affect is congruent. [place] Suicidality/Homicidality: Patient denies having any homicidal ideation intent or plan. endorsing suicidal ideations, with no intent or plan Perceptions: Patient denies any visual hallucinations and denies any auditory hallucinations Though content/process: There is no evidence of delusional thought content and thought process concrete. Memory and concentration: AOX3, grossly intact for the purposes of this session Judgment and insight: chronically poor IMPRESSIONS: schizophrenia suicidal ideation PLAN: -Patient is admitted under involuntary status to MHU for stabilization of psychiatric symptoms and safety. Patient has not signed adult voluntary form and medication consent and is placed in patient's chart. Patient did defer with her civil rights attorney. -Medications: clozapine 50 mg daily + increase to 200 mg qhs for psychosis trazodone 50mg qhs for sleep. Zoloft 200 daily for mood/anxiety, Vistaril scheduled 50 mg twice daily for anxiety. Ativan scheduled 1mg 0900 and 1400 for anxiety -Ensure for nutrition supplement -RNs to document occurrence of any future bowel movements - will consider augmenting with another antipsychotic if constipation persists despite treatment -Ativan and Haldol PRN for agitation/aggression -Weekly ANC stable -appreciate recommendations from GI- currently treating for constipation -NRT - nicotine patch -SW on board for discharge planning. Encourage patient to participate in groups to work on coping skills. Patient did defer with her civil rights attorney. Patient will need care home placement upon discharge. hopeful for discharge sometime next week once either care home or afc placement is found
[2024-04-24] MEDS: cloZAPine 100 MG TAB PO SCH (20:50)
--- NOTE | 2024-04-25 10:23 | P.PN ---
Progress Note - Text Progress Note Date: 04/25/24 Interval History: Patient was seen laying in her bed today, and agreeable to speak with bond writer. Patient states that she is "doing terrible". Patient states her rectum is super anxious today. She speaks in a very anxious manner. She states that she can not go on like this anymore. Claims that she sorta slept last night. She is still not eating, but is drinking the Ensures that come with meals. Patient appears withdrawn. She continues isolating to her room. Endorses suicidal ideations, she stated she wants to , no plan or intent. Denies homicidal ideations. Patient denies any auditory, visual hallucinations and denies any paranoia or delusions. Patient denies any side effects from the medications and has been compliant with meds. MENTAL STATUS EXAM: General Appearance: Patient appears to be older than stated age, is alert, directable, and attempts to cooperate. Patient appears to have poor hygiene and grooming. Behavior: Patient is seated without any agitated behavior, anxious, nervous, upset, fixated on her rectum, withdrawn, isolating Speech: Patient's speech is fluent and nonpressured. anxious Mood/Affect: Patient reports their mood is "terrible", affect is congruent and constricted. [place] Suicidality/Homicidality: Patient denies having any homicidal ideation intent or plan. endorsing suicidal ideations, with no intent or plan Perceptions: Patient denies any visual hallucinations and denies any auditory hallucinations Though content/process: There is no evidence of delusional thought content and thought process concrete. Memory and concentration: AOX3, grossly intact for the purposes of this session Judgment and insight: chronically poor IMPRESSIONS: schizophrenia suicidal ideation PLAN: -Patient is admitted under involuntary status to MHU for stabilization of psychiatric symptoms and safety. Patient has not signed adult voluntary form and medication consent and is placed in patient's chart. Patient did defer with her technical services assistant. -Medications: clozapine 50 mg daily + 200mg qhs for psychosis will increase as tolerated. trazodone 50mg qhs for sleep. Zoloft 200 daily for mood/anxiety, Vistaril scheduled 50 mg twice daily for anxiety. Ativan scheduled 1mg 0900 and 1400 for anxiety -Ativan and Haldol PRN for agitation/aggression -NRT - nicotine patch -SW on board for discharge planning. Encourage patient to participate in groups to work on coping skills. Patient did defer with her technical services assistant. Patient will need care home placement upon discharge. hopeful for discharge sometime next week once either care home or afc placement is found
--- NOTE | 2024-04-26 11:29 | P.PN ---
Progress Note - Text Progress Note Date: 04/26/24 Interval History: Patient was seen laying in her bed today, and agreeable to speak with teletypewriter operator. Patient states that she is "doing terrible". Patient continues to state her rectum is super anxious. She speaks in a very anxious manner. She states that she just wants to . Claims that she sorta slept last night. She is still not eating, but is drinking the Ensures that come with meals. Patient appears withdrawn. She continues isolating to her room. Endorses suicidal ideations, she stated she wants to , no plan or intent. Denies homicidal ideations. Patient denies any auditory, visual hallucinations and denies any paranoia or delusions. Patient denies any side effects from the medications and has been compliant with meds. MENTAL STATUS EXAM: General Appearance: Patient appears to be older than stated age, is alert, directable, and attempts to cooperate. Patient appears to have poor hygiene and grooming. Behavior: Patient is seated without any agitated behavior, anxious, nervous, upset, fixated on her rectum, withdrawn, isolating Speech: Patient's speech is fluent and nonpressured. anxious Mood/Affect: Patient reports their mood is "terrible", affect is congruent and constricted. [place] Suicidality/Homicidality: Patient denies having any homicidal ideation intent or plan. endorsing suicidal ideations, with no intent or plan Perceptions: Patient denies any visual hallucinations and denies any auditory hallucinations Though content/process: There is no evidence of delusional thought content and thought process concrete. Memory and concentration: AOX3, grossly intact for the purposes of this session Judgment and insight: chronically poor IMPRESSIONS: schizophrenia suicidal ideation PLAN: -Patient is admitted under involuntary status to MHU for stabilization of psychiatric symptoms and safety. Patient has not signed adult voluntary form and medication consent and is placed in patient's chart. Patient did defer with her rehabilitation aide. -Medications: clozapine 50 mg daily + 200mg qhs for psychosis will increase as tolerated. trazodone 50mg qhs for sleep. d/c Zoloft and start effexor xr 37.5 mg daily for mood/anxiety, Vistaril scheduled 50 mg twice daily for anxiety. Ativan scheduled 1mg 0900 and 1400 for anxiety -Ativan and Haldol PRN for agitation/aggression -NRT - nicotine patch -SW on board for discharge planning. Encourage patient to participate in groups to work on coping skills. Patient did defer with her rehabilitation aide. Patient will need pen[facility]iary placement upon discharge. hopeful for discharge sometime next week once either penitentiary or afc placement is found
[2024-04-26] MEDS: VENLAFAXINE HCL ER 37.5 MG CAP PO SCH (12:53)
[2024-04-27 08:48] LABS: Basophils % (A) 1 %; Eosinophils # (A) 0.1 k/uL (0-0.7); Eosinophils % (A) 2 %; HCT 49.4 % (34.0-46.0); HGB 15.5 gm/dL (11.4-16.0); Hypochromasia Slight; Lymphocytes # (A) 2.2 k/uL (1.0-4.8); Lymphocytes % (A) 44 %; MCHC 31.3 g/dL (31.0-37.0); MCV 86.5 fL (80.0-100.0); Mean Platelet Volume 9.4; Monocytes # (A) 0.3 k/uL (0-1.0); Monocytes % (A) 6 %; Neutrophils # (A) 2.3 k/uL (1.3-7.7); Neutrophils % (A) 47 %; Platelet Count 183 k/uL (150-450); RBC 5.72 m/uL (3.80-5.40)
--- NOTE | 2024-04-27 10:01 | P.PN ---
Progress Note - Text Progress Note Date: 04/27/24 Interval History: Patient was seen laying in her bed today, and agreeable to speak with typewriters functional tester. Patient states that she is "doing terrible". Patient continues to state her rectum is super anxious. She claims that he is mainly been staying in her room. She has been up for some meals. She claims that she has not have a bowel movement in 3 or 4 days. Encourage ambulation and spoke about stool softeners. Will also be ordering pinworm and stool culture. Claims that she sorta slept last night. She is still not eating, but is drinking the Ensures that come with meals. Patient appears withdrawn. She continues isolating to her room. denies any suicidal ideations, she stated she , no plan or intent. Denies homicidal ideations. Patient denies any auditory, visual hallucinations and denies any paranoia or delusions. Patient denies any side effects from the medications and has been compliant with meds. MENTAL STATUS EXAM: General Appearance: Patient appears to be older than stated age, is alert, directable, and attempts to cooperate. Patient appears to have poor hygiene and grooming. Behavior: Patient is seated without any agitated behavior, anxious, nervous, upset, fixated on her rectum, withdrawn, isolating Speech: Patient's speech is fluent and nonpressured. anxious Mood/Affect: Patient reports their mood is "terrible", affect is congruent and constricted. [place], improving midlly Suicidality/Homicidality: Patient denies having any homicidal ideation intent or plan. endorsing suicidal ideations, with no intent or plan Perceptions: Patient denies any visual hallucinations and denies any auditory hallucinations Though content/process: There is no evidence of delusional thought content and thought process concrete. focused on her symptoms. Memory and concentration: AOX3, grossly intact for the purposes of this session Judgment and insight: chronically poor IMPRESSIONS: schizophrenia suicidal ideation PLAN: -Patient is admitted under involuntary status to MHU for stabilization of psychiatric symptoms and safety. Patient has not signed adult voluntary form and medication consent and is placed in patient's chart. Patient did defer with her legal administrator. -Medications: clozapine 50 mg daily + 200mg qhs for psychosis will increase as tolerated. increase trazodone 100mg qhs for sleep. increase effexor xr 75 mg daily for mood/anxiety, Vistaril scheduled 50 mg twice daily for anxiety. Ativan scheduled 1mg 0900 and 1400 for anxiety -Ativan and Haldol PRN for agitation/aggression -NRT - nicotine patch -SW on board for discharge planning. Encourage patient to participate in groups to work on coping skills. Patient did defer with her legal administrator. Patient will need assisted placement upon discharge. hopeful for discharge sometime this week once a crisis bed is secured.
[2024-04-27] MEDS: traZODone HCL 100 MG TAB PO SCH (21:06)
[2024-04-28] MEDS: VENLAFAXINE HCL ER 75 MG CAP PO SCH (08:10)
--- NOTE | 2024-04-28 11:18 | P.PN ---
Progress Note - Text Progress Note Date: 04/28/24 Interval History: Patient was seen laying in her bed today, and agreeable to speak with marketing underwriter. Patient states that she is "terrible". Patient continues to ruminate on her anxious rectum. She is secluding herself to her room, marketing underwriter encouraged her to get up and shower, and move around more, to get her bowels moving. She claims that she has not have a bowel movement in about 5 days. awaiting stool culture. Claims that she slept last night. She is still not eating, but sometimes is drinking the Ensures that come with meals. Patient appears withdrawn. She continues isolating to her room. denies any suicidal ideations, she stated she , no plan or intent. Denies homicidal ideations. Patient denies any auditory, visual hallucinations and denies any paranoia or delusions. Patient denies any side effects from the medications and has been compliant with meds. MENTAL STATUS EXAM: General Appearance: Patient appears to be older than stated age, is alert, directable, and attempts to cooperate. Patient appears to have poor hygiene and grooming. Behavior: Patient is seated without any agitated behavior, anxious, nervous, upset, fixated on her rectum, withdrawn, isolating Speech: Patient's speech is fluent and nonpressured. anxious, imp[roving mildly Mood/Affect: Patient reports their mood is "terrible", affect is congruent and constricted. [place], improving midlly Suicidality/Homicidality: Patient denies having any homicidal ideation intent or plan. endorsing suicidal ideations, with no intent or plan Perceptions: Patient denies any visual hallucinations and denies any auditory hallucinations Though content/process: There is no evidence of delusional thought content and t hought process concrete. focused on her symptoms. Memory and concentration: AOX3, grossly intact for the purposes of this session Judgment and insight: chronically poor IMPRESSIONS: schizophrenia suicidal ideation PLAN: -Patient is admitted under involuntary status to MHU for stabilization of psychiatric symptoms and safety. Patient has not signed adult voluntary form and medication consent and is placed in patient's chart. Patient did defer with her trade mark attorney. -Medications: clozapine 50 mg daily + 200mg qhs for psychosis will increase as tolerated. trazodone 100mg qhs for sleep. added remeron 15 mg qhs for appetite stimulation. effexor xr 75 mg daily for mood/anxiety will continue to increase as tolerated, Vistaril scheduled 50 mg twice daily for anxiety. Ativan scheduled 1mg 0900 and 1400 for anxiety -Ativan and Haldol PRN for agitation/aggression -NRT - nicotine patch -SW on board for discharge planning. Encourage patient to participate in groups to work on coping skills. Patient did defer with her trade mark attorney. Patient will need senior care placement upon discharge. hopeful for discharge sometime next week once a crisis bed is secured.
[2024-04-28] MEDS: polyethylene glycoL 3350 17 GM POWD.PACK PO SCH (20:11)
[2024-04-28] MEDS: MIRTAZAPINE 15 MG TAB PO SCH (20:11)
[2024-04-29] MEDS: BENZTROPINE MESYLATE 0.5 MG TAB PO SCH (11:08)
--- NOTE | 2024-04-29 11:15 | P.PN ---
Progress Note - Text Progress Note Date: 04/29/24 Interval History: Patient was seen laying in her bed today, and agreeable to speak with machine sign writer. Patient states that she is "the same". Patient appears visibly depressed. She is secluding herself to her room, machine sign writer encouraged her to get up and shower, and move around more, to get her bowels moving. She claims that she has not have a bowel movement in about 7 days. Will order abd xray to check for blockages. awaiting stool culture, and resulted pin worm test. Claims that she slept last night. She did eat some oatmeal for breakfast this morning. Patient appears withdrawn. She continues isolating to her room. denies any suicidal ideations, no plan or intent. Denies homicidal ideations. Patient denies any auditory, visual hallucinations and denies any paranoia or delusions. Patient denies any side effects from the medications and has been compliant with meds. MENTAL STATUS EXAM: General Appearance: Patient appears to be older than stated age, is alert, directable, and attempts to cooperate. Patient appears to have poor hygiene and grooming. Behavior: Patient is seated without any agitated behavior, anxious, nervous, upset, withdrawn, isolating Speech: Patient's speech is fluent and nonpressured. anxious, improving mildly Mood/Affect: Patient reports their mood is "the same", affect is congruent and constricted. [place], improving midlly Suicidality/Homicidality: Patient denies having any homicidal ideation intent or plan. endorsing suicidal ideations, with no intent or plan Perceptions: Patient denies any visual hallucinations and denies any auditory hallucinations Though content/process: There is no evidence of delusional thought content and thought process concrete. focused on her symptoms. mildly improving Memory and concentration: AOX3, grossly intact for the purposes of this session Judgment and insight: chronically poor IMPRESSIONS: schizophrenia suicidal ideation PLAN: -Patient is admitted under involuntary status to MHU for stabilization of psychiatric symptoms and safety. Patient has not signed adult voluntary form and medication consent and is placed in patient's chart. Patient did defer with her finance attorney. -Medications: clozapine 50 mg daily + 200mg qhs for psychosis will increase as tolerated. trazodone 100mg qhs for sleep. remeron 15 mg qhs for appetite stimulation. effexor xr 75 mg daily for mood/anxiety will continue to increase as tolerated, decrease Vistaril azael 25 mg twice daily for anxiety. Ativan scheduled 1mg 0900 and 1400 for anxiety add cogentin 0.5 bid for EPS symptoms -order abdominal xray for constipation, and EKG -Ativan and Haldol PRN for agitation/aggression -NRT - nicotine patch -SW on board for discharge planning. Encourage patient to participate in groups to work on coping skills. Patient did defer with her finance attorney. Patient will need [facility] placement upon discharge. hopeful for discharge sometime next week once a crisis bed is secured.
--- NOTE | 2024-04-29 13:12 | XR ---
EXAMINATION TYPE: XR abdomen 2V DATE OF EXAM: 04/29/2024 12:40 PM CLINICAL INDICATION:Female, 58 years old with history of constipation; [facility] COMPARISON: 04/13/2024. TECHNIQUE: Two views of the abdomen were obtained. FINDINGS: The bowel gas pattern is nonspecific without dilated loops of small or large bowel. There i s no evidence for organomegaly or pneumoperitoneum. The osseous structures are intact. No abnormal calcifications are present. Fecal material and gas are demonstrated throughout the colon and rectum. Moderate bilateral hip osteoarthrosis with joint space narrowing and osteophyte formation. IMPRESSION: Nonspecific bowel gas pattern without radiographic evidence for acute process.
[2024-04-29] MEDS: hydrOXYzine pamoate 25 MG CAP PO SCH (19:56)
--- NOTE | 2024-04-30 20:08 | P.PN ---
Progress Note - Text Progress Note Date: 04/30/24 Interval History: Patient was seen laying in her bed today. She repeats that her "rectum will ex plode" because she says she is concerned by her lack of bowel movement. Claims that she slept last night. She has been consuming 0-25% of meals and drinking supplements sometimes. Patient appears withdrawn. She continues isolating to her room. denies any suicidal ideations, no plan or intent. Denies homicidal ideations. Patient denies any auditory, visual hallucinations and denies any paranoia or delusions. Patient denies any side effects from the medications and has been compliant with meds. MENTAL STATUS EXAM: General Appearance: Patient appears to be older than stated age, is alert, dir ectable, and attempts to cooperate. Patient appears to have poor hygiene and grooming. Behavior: Patient is seated without any agitated behavior, anxious, nervous, upset, withdrawn, isolating Speech: Patient's speech is fluent and nonpressured. anxious, improving mildly Mood/Affect: Patient reports their mood is anxious, affect is congruent. [place], improving midlly Suicidality/Homicidality: Patient denies having any homicidal ideation intent or plan. endorsing suicidal ideations, with no intent or plan Perceptions: Patient denies any visual hallucinations and denies any auditory hallucinations Though content/process: There is no evidence of delusional thought content and thought process concrete. focused on her symptoms. mildly improving Memory and concentration: AOX3, grossly intact for the purposes of this session Judgment and insight: chronically poor IMPRESSIONS: schizophrenia suicidal ideation Tardive dyskinesia PLAN: -Patient is admitted under involuntary status to [facility]HU for stabilization of psychiatric symptoms and safety. Patient has not signed adult voluntary form and medication consent and is placed in patient's chart. Patient did defer with her workers compensation defense attorney. -Medications: clozapine 50 mg daily + 200mg qhs for psychosis will increase as tolerated. trazodone 100mg qhs for sleep. increase remeron to 30 mg qhs for appetite stimulation. effexor xr 75 mg daily for mood/anxiety will continue to increase as tolerated, Vistaril azael 25 mg twice daily for anxiety. Ativan scheduled 1mg 0900 and 1400 for anxiety, cogentin 0.5 bid for EPS symptoms -abdominal xray for constipation - NAP, and EKG Tapeworm test pending -RNs asked to document BMs -Ativan and Haldol PRN for agitation/aggression -NRT - nicotine patch -SW on board for discharge planning. Encourage patient to participate in groups to work on coping skills. Patient did defer with her workers compensation defense attorney. [facility] [place] [facility] discharge. hopeful for discharge sometime next week once a crisis bed is secured.
[2024-04-30] MEDS: MIRTAZAPINE 15 MG TAB PO SCH (20:36)
--- NOTE | 2024-05-01 18:06 | P.PN ---
Progress Note - Text Progress Note Date: 05/01/24 Interval History: Patient was seen laying in her bed today. She repeats that her "anxious rectum" is bothering her. she states that she is concerned it is a male due or parasite that he is able to travel. However, patient is able to participate in conversation regarding her concern of this and acknowledges that pain has resulted only in that area and has not spread anywhere else. She was encouraged to eat more in an effort to allow for more bowel movements. she said that she will try to do so. She continues to be anxious but reports tolerating medications well. She states that her mood is "anxious ". She reports sleep has been difficult at times and has fair energy during the daytime. behavioral activation encouraged. denies any suicidal ideations, no plan or intent. Denies homicidal ideations. Patient denies any auditory, visual hallucinations and denies any paranoia or delusions. Patient denies any side effects from the medications and has been compliant with meds. MENTAL STATUS EXAM: General Appearance: Patient appears to be older than stated age, is alert, directable, and attempts to cooperate. Patient appears to have poor hygiene and grooming. Behavior: Patient is seated without any agitated behavior, anxious, nervous, upset, withdrawn, isolating Speech: Patient's speech is fluent and nonpressured. anxious, improving mildly Mood/Affect: Patient reports their mood is anxious, affect is congruent. [place], improving midlly Suicidality/Homicidality: Patient denies having any homicidal ideation intent or plan. endorsing suicidal ideations, with no intent or plan Perceptions: Patient denies any visual hallucinations and denies any auditory hallucinations Though content/process: There is no evidence of delusional thought content and thought process concrete. focused on her symptoms. mildly improving Memory and concentration: AOX3, grossly intact for the purposes of this session Judgment and insight: chronically poor IMPRESSIONS: schizophrenia suicidal ideation Tardive dyskinesia PLAN: -Patient is admitted under involuntary status to MHU for stabilization of psychiatric symptoms and safety. Patient has not signed adult voluntary form and medication consent and is placed in patient's chart. Patient did defer with her county attorney. -Medications: clozapine 50 mg daily + 200mg qhs for psychosis will increase as tolerated. trazodone 100mg qhs for sleep. remeron 30 mg qhs for appetite stimulation. effexor xr 75 mg daily for mood/anxiety will continue to increase as tolerated, Vistaril azael 25 mg twice daily for anxiety. Ativan scheduled 1mg 0900 and 1400 for anxiety, cogentin 0.5 bid for EPS symptoms -abdominal xray for constipation - NAP, and EKG Tapeworm test pending -RNs asked to document BMs -Ativan and Haldol PRN for agitation/aggression -NRT - nicotine patch -SW on board for discharge planning. Encourage patient to participate in groups to work on coping skills. Patient did defer with her county attorney. Patient will need retirement placement upon discharge. hopeful for discharge sometime next week once a crisis bed is secured.
--- NOTE | 2024-05-02 10:22 | P.PN ---
Progress Note - Text Progress Note Date: 05/02/24 Interval History: Patient was seen sitting in her bed today. She states that she is about the sa me. Patient appears much brighter today, however, she states that she is scared about her rectum. Hygiene and grooming improving significantly. [employer] reassured patient that we have done all the testing, to make sure that there is nothing serious going on. Patient verbalized that she understands. Patient is going down to the dining room for meals now, and eating. She continues to be anxious but reports tolerating medications well. She states that her mood is "anxious ". She reports sleep has been improving and has fair energy during the daytime. She states that she gave the nurse a stool sample, but it feels like she needs to go more, but cannot. Encouraged patient to drink more water. denies any suicidal ideations, no plan or intent. Denies homicidal ideations. Patient denies any auditory, visual hallucinations and denies any paranoia or delusions. Patient denies any side effects from the medications and has been compliant with meds. MENTAL STATUS EXAM: General Appearance: Patient appears to be older than stated age, is alert, directable, and attempts to cooperate. Patient appears to have poor hygiene and grooming. Behavior: Patient is seated without any agitated behavior, anxious, nervous, upset, withdrawn, isolating Speech: Patient's speech is fluent and nonpressured. anxious, improving mildly Mood/Affect: Patient reports their mood is anxious, affect is congruent. [place], improving midlly Suicidality/Homicidality: Patient denies having any homicidal ideation intent or plan. endorsing suicidal ideations, with no intent or plan Perceptions: Patient denies any visual hallucinations and denies any auditory hallucinations Though content/process: There is no evidence of delusional thought content and thought process concrete. focused on her symptoms. mildly improving Memory and concentration: AOX3, grossly intact for the purposes of this session Judgment and insight: chronically poor, mildly improving IMPRESSIONS: schizophrenia suicidal ideation Tardive dyskinesia PLAN: -Patient is admitted under involuntary status to MHU for stabilization of psychiatric symptoms and safety. Patient has not signed adult voluntary form and medication consent and is placed in patient's chart. Patient did defer with her auto service advisor. -Medications: clozapine 50 mg daily + 200mg qhs for psychosis will increase as tolerated. trazodone 100mg qhs for sleep. remeron 30 mg qhs for appetite stimulation. effexor xr 75 mg daily for mood/anxiety will continue to increase as tolerated, Vistaril azael 25 mg twice daily for anxiety. Ativan scheduled 1mg 0900 and 1400 for anxiety, cogentin 0.5 bid for EPS symptoms Tapeworm test pending -RNs asked to document BMs -Ativan and Haldol PRN for agitation/aggression -NRT - nicotine patch -SW on board for discharge planning. Encourage patient to participate in groups to work on coping skills. Patient did defer with her auto service advisor. Patient will need [facility] placement upon discharge. hopeful for discharge sometime this week once a crisis bed is secured.
--- NOTE | 2024-05-03 09:45 | P.PN ---
Progress Note - Text Progress Note Date: 05/03/24 Interval History: Patient was seen sitting in her bed today. She states that she is feeling anxi ety in her rectum, and she just wants it to be over. she is less preoccupied with it today. Patient appears bright today. Hygiene and grooming improving significantly. Patient explains that the anxiety in her rectum feels like a muscle spasm. [employer] reassured patient that we have done all the testing, to make sure that there is nothing serious going on. Patient verbalized that she understands. Patient is going down to the dining room for meals now, and eating. She continues to be anxious but reports tolerating medications well. She states that her mood is "anxious ". She reports sleep has been improving and has fair energy during the daytime. Patient states she does not know what to do during the day. Encouraged patient to go to some groups. Encouraged patient to drink more water. denies any suicidal ideations, no plan or intent. Denies homicidal ideations. Patient denies any auditory, visual hallucinations and denies any paranoia or delusions. Patient denies any side effects from the medications and has been compliant with meds. MENTAL STATUS EXAM: General Appearance: Patient appears to be older than stated age, is alert, directable, and attempts to cooperate. Patient appears to have poor hygiene and grooming. Behavior: Patient is seated without any agitated behavior, anxious, nervous, upset, withdrawn, isolating Speech: Patient's speech is fluent and nonpressured. anxious, improving mildly Mood/Affect: Patient reports their mood is anxious, affect is congruent. [place], improving midlly Suicidality/Homicidality: Patient denies having any homicidal ideation intent or plan. endorsing suicidal ideations, with no intent or plan Perceptions: Patient denies any visual hallucinations and denies any auditory hallucinations Though content/process: There is no evidence of delusional thought content and thought process concrete. focused on her symptoms. mildly improving Memory and concentration: AOX3, grossly intact for the purposes of this session Judgment and insight: chronically poor, mildly improving IMPRESSIONS: schizophrenia suicidal ideation Tardive dyskinesia PLAN: -Patient is admitted under involuntary status to MHU for stabilization of psychiatric symptoms and safety. Patient has not signed adult voluntary form and medication consent and is placed in patient's chart. Patient did defer with her claims attorney. -Medications: clozapine 50 mg daily + 200mg qhs for psychosis. trazodone 100mg qhs for sleep. remeron 30 mg qhs for appetite stimulation. effexor xr 150 mg daily for mood/anxiety will continue to increase as tolerated, Vistaril azael 25 mg twice daily for anxiety. Ativan scheduled 1mg 0900 and 1400 for anxiety, cogentin 0.5 bid for EPS symptoms. added inderall 20 mg daily for anxiety/tachycardia. -stool culture pending -Ativan and Haldol PRN for agitation/aggression -NRT - nicotine patch - on board for discharge planning. Encourage patient to participate in groups to work on coping skills. Patient did defer with her claims attorney. Patient will need senior care placement upon discharge or crisis bed. hopeful for discharge sometime this week. Needs coordination with guardian and [facility]
[2024-05-03] MEDS: PROPRANOLOL 20 MG TAB PO SCH (09:53)
--- NOTE | 2024-05-04 10:25 | P.PN ---
Progress Note - Text Progress Note Date: 05/04/24 Interval History: Patient was seen sitting in her bed today. She states that she is feeling anxi ety in her rectum, Patient explains that the anxiety in her rectum feels like a muscle spasm. Patient is going down to the dining room for meals now, and eating a little bit. She continues to be anxious but reports tolerating medications well. She states that her mood is "anxious ". She reports sleep has been improving and has fair energy during the daytime.Patient has attended a couple groups now, with encouragement. Encouraged patient to drink more water. denies current suicidal ideations, no plan or intent. States she sometimes feels like hurting herself, due to her anxious rectum. Denies homicidal ideations. Patient denies any auditory, visual hallucinations and denies any paranoia or delusions. Patient denies any side effects from the medications and has been compliant with meds. MENTAL STATUS EXAM: General Appearance: Patient appears to be older than stated age, is alert, directable, and attempts to cooperate. Patient appears to have poor hygiene and grooming. Behavior: Patient is seated without any agitated behavior, anxious, nervous, upset, Speech: Patient's speech is fluent and nonpressured. anxious, improving mildly Mood/Affect: Patient reports their mood is anxious, affect is congruent. [place], improving midlly Suicidality/Homicidality: Patient denies having any homicidal ideation intent or plan. endorsing suicidal ideations, with no intent or plan Perceptions: Patient denies any visual hallucinations and denies any auditory hallucinations Though content/process: There is no evidence of delusional thought content and thought process concrete. focused on her symptoms. mildly improving Memory and concentration: AOX3, grossly intact for the purposes of this session Judgment and insight: chronically poor, mildly improving IMPRESSIONS: schizophrenia suicidal ideation Tardive dyskinesia PLAN: -Patient is admitted under involuntary status to MHU for stabilization of psychiatric symptoms and safety. Patient has not signed adult voluntary form and medication consent and is placed in patient's chart. Patient did defer with her rn telephone triage. -Medications: increase clozapine 75 mg daily + 200mg qhs for psychosis. trazodone 100mg qhs for sleep. remeron 30 mg qhs for appetite stimulation. effexor xr 150 mg daily for mood/anxiety will continue to increase as tolerated, Vistaril azael 25 mg twice daily for anxiety. Ativan scheduled 1mg 0900 and 1400 for anxiety, cogentin 0.5 bid for EPS symptoms. inderall 20 mg daily for anxiety/tachycardia. -stool culture in progress -Ativan and Haldol PRN for agitation/aggression -NRT - nicotine patch - on board for discharge planning. Encourage patient to participate in groups to work on coping skills. Patient did defer with her rn telephone triage. Patient will need assisted placement upon discharge or crisis bed. hopeful for discharge sometime this week. Needs coordination with guardian and [facility]
[2024-05-04] MEDS: cloZAPine 25 MG TAB PO ONE (11:25)
[2024-05-04 13:20] LABS: Basophils % (A) 1 %; Eosinophils % (A) 1 %; HCT 45.5 % (34.0-46.0); HGB 14.6 gm/dL (11.4-16.0); Lymphocytes # (A) 2.3 k/uL (1.0-4.8); Lymphocytes % (A) 37 %; MCH 28.3 pg (25.0-35.0); MCHC 32.1 g/dL (31.0-37.0); MCV 88.2 fL (80.0-100.0); Mean Platelet Volume 9.8; Monocytes # (A) 0.4 k/uL (0-1.0); Monocytes % (A) 6 %; Neutrophils # (A) 3.3 k/uL (1.3-7.7); Neutrophils % (A) 54 %; Platelet Count 193 k/uL (150-450); RBC 5.16 m/uL (3.80-5.40); RDW 14.4 % (11.5-15.5); WBC 6.1 k/uL (3.8-10.6)
[2024-05-05] MEDS: cloZAPine 25 MG TAB PO SCH (08:07)
--- NOTE | 2024-05-05 10:13 | P.PN ---
Progress Note - Text Progress Note Date: 05/05/24 Interval History: Patient was seen laying in her bed today. She states that she is feeling a lot of anxiety in her rectum, Patient explains that the anxiety in her rectum feels like a muscle spasm. Patient states that she can not eat anymore, and she can not sleep, and that she wants to , due to this feeling in her rectum. Will reach out to GI again, to see what they recommend. She is speaking in a very anxious, worried manner. She continues to be anxious but reports tolerating medications well. She states that her mood is "anxious ". Patient has attended a couple groups now, with encouragement. Encouraged patient to drink more water. endorses current suicidal ideations, no plan or intent. States she sometimes feels like hurting herself, due to her anxious rectum, she states she cannot go on like this, and she is scared. Denies homicidal ideations. Patient denies any auditory, visual hallucinations and denies any paranoia or delusions. Patient denies any side effects from the medications and has been compliant with meds. MENTAL STATUS EXAM: General Appearance: Patient appears to be older than stated age, is alert, directable, and attempts to cooperate. Patient appears to have poor hygiene and grooming. Behavior: Patient is seated without any agitated behavior, anxious, nervous, upset, Speech: Patient's speech is fluent and nonpressured. anxious, Mood/Affect: Patient reports their mood is very anxious, affect is congruent. appears upset. Suicidality/Homicidality: Patient denies having any homicidal ideation intent or plan. endorsing suicidal ideations, with no intent or plan Perceptions: Patient denies any visual hallucinations and denies any auditory hallucinations Though content/process: There is no evidence of delusional thought content and thought process concrete. focused on her symptoms. Memory and concentration: AOX3, grossly intact for the purposes of this session Judgment and insight: chronically poor, IMPRESSIONS: schizophrenia suicidal ideation Tardive dyskinesia PLAN: -Patient is admitted under involuntary status to MHU for stabilization of psychiatric symptoms and safety. Patient has not signed adult voluntary form and medication consent and is placed in patient's chart. Patient did defer with her privacy attorney. -Medications: clozapine 75 mg daily + 200mg qhs for psychosis. trazodone 100mg qhs for sleep. remeron 30 mg qhs for appetite stimulation. effexor xr 150 mg daily for mood/anxiety will continue to increase as tolerated, Vistaril azael 25 mg twice daily for anxiety. Ativan scheduled 1mg 0900 and 1400 for anxiety, cogentin 0.5 bid for EPS symptoms. inderall 20 mg daily for anxiety/tachycardia. -stool culture in progress -will attempt to contact GI for further recommendations -Ativan and Haldol PRN for agitation/aggression -NRT - nicotine patch -SW on board for discharge planning. Encourage patient to participate in groups to work on coping skills. Patient did defer with her privacy attorney. Patient will need long-term placement upon discharge or crisis bed. hopeful for discharge sometime this week. Needs coordination with guardian and H
--- NOTE | 2024-05-06 09:49 | P.PN ---
Progress Note - Text Progress Note Date: 05/06/24 Interval History: Patient was seen in the unge today, after getting her labs drawn, and was ag reeable to speak to this contract writer in her room at the bedside. She states that she continues to feel a lot of anxiety in her rectum. Patient reassured that the cultures came back negative, and no parasites were founds. Will reach out to GI again, to see what they recommend. She is speaking in a very anxious, worried manner. She states that she is scared, because she does not know what is going on down there. She did eat some oatmeal for breakfast, and she claims to try to eat lunch and dinner as well. She states that she has had bowel movements, that are "all liquid and anxious". She continues to be anxious but reports tolerating medications well. She states that her mood is "anxious ". Patient has attended a couple groups now, with encouragement. Encouraged patient to drink more water. endorses current suicidal ideations, no plan or intent. States she sometimes feels like hurting herself, due to her anxious rectum, she states she cannot go on like this, and she is scared. Denies homicidal ideations. Patient denies any auditory, visual hallucinations and denies any paranoia or delusions. Patient denies any side effects from the medications and has been compliant with meds. MENTAL STATUS EXAM: General Appearance: Patient appears to be older than stated age, is alert, directable, and attempts to cooperate. Patient appears to have poor hygiene and grooming. Behavior: Patient is seated without any agitated behavior, anxious, nervous, upset, Speech: Patient's speech is fluent and nonpressured. anxious, Mood/Affect: Patient reports their mood is very anxious, affect is congruent. appears upset. Suicidality/Homicidality: Patient denies having any homicidal ideation intent or plan. endorsing suicidal ideations, with no intent or plan Perceptions: Patient denies any visual hallucinations and denies any auditory hallucinations Though content/process: There is no evidence of delusional thought content and thought process concrete. focused on her symptoms. Memory and concentration: AOX3, grossly intact for the purposes of this session Judgment and insight: chronically poor, IMPRESSIONS: schizophrenia suicidal ideation Tardive dyskinesia PLAN: -Patient is admitted under involuntary status to MHU for stabilization of psychiatric symptoms and safety. Patient has not signed adult voluntary form and medication consent and is placed in patient's chart. Patient did defer with her criminal attorney. -Medications: clozapine 75 mg daily + 200mg qhs for psychosis. trazodone 100mg qhs for sleep. remeron 30 mg qhs for appetite stimulation. effexor xr 150 mg daily for mood/anxiety will continue to increase as tolerated, Vistaril azael 25 mg twice daily for anxiety. Ativan scheduled 1mg 0900 and 1400 for anxiety, cogentin 0.5 bid for EPS symptoms. inderall 20 mg daily for anxiety/tachycardia. -stool culture negative -will attempt to contact GI for further recommendations -Ativan and Haldol PRN for agitation/aggression -NRT - nicotine patch -SW on board for discharge planning. Encourage patient to participate in groups to work on coping skills. Patient did defer with her criminal attorney. Patient will need [facility] placement upon discharge or crisis bed. hopeful for discharge sometime this week. Needs coordination with guardian and H
[2024-05-06 09:50] LABS: Basophils # (A) 0.1 k/uL (0-0.2); Basophils % (A) 1 %; Eosinophils # (A) 0.1 k/uL (0-0.7); Eosinophils % (A) 1 %; HCT 51.1 % (34.0-46.0); HGB 15.4 gm/dL (11.4-16.0); Lymphocytes % (A) 33 %; MCH 26.9 pg (25.0-35.0); MCHC 30.1 g/dL (31.0-37.0); MCV 89.3 fL (80.0-100.0); Mean Platelet Volume 9.1; Monocytes # (A) 0.4 k/uL (0-1.0); Monocytes % (A) 6 %; Neutrophils # (A) 3.5 k/uL (1.3-7.7); Neutrophils % (A) 57 %; Platelet Count 201 k/uL (150-450); RBC 5.72 m/uL (3.80-5.40); RDW 14.4 % (11.5-15.5); WBC 6.1 k/uL (3.8-10.6)
[2024-05-06] MEDS: LORazepam 1 MG TAB PO SCH (16:27)
[2024-05-08] MEDS: cloZAPine 100 MG TAB PO SCH (07:53)
[2024-05-08] MEDS: BACLOFEN 10 MG TAB PO ONE (17:39)
--- NOTE | 2024-05-08 18:03 | P.PN ---
Progress Note - Text Progress Note Date: 05/07/24 Interval history: I evaluated patient on 05/07/24. Patient was seen anxiously pacing the hallways and was directable and agreeable to speak with bid writer. She is tearful and reports having "anxiety in my rectum" that "won't let me sleep". She reports difficulty having bowel movements but denies hard stool and states her stool is "liquid". She states she has already undergone a rectal work-up that was negative. At this time patient denies any suicidal or homicidal ideation, intent or plan. Denies any auditory or visual hallucinations. Patient denies any side effects from the medications and has been compliant with meds. Mental status exam: General Appearance: Patient appears to be stated age, tall slender female dressed in casual attire, average hygiene/grooming. Behavior: No agitated behavior. Patient is distressed, tearful. Speech: Patient's speech is fluent and non-pressured. Mood/Affect: Mood is anxious, affect is congruent and labile. Suicidality/Homicidality: Patient denies having any suicidal or homicidal ideation intent or plan. Perceptions: Patient denies any auditory or visual hallucinations. Though content/process: Concern for somatic delusions regarding rectum. Thought process is ruminative/anxious. Memory and concentration: AOX3, grossly intact for the purposes of this session Judgment and insight: fair/poor Assessment/Plan: Continue with current diagnosis. Patient continues to meet criteria for inpatient psychiatric admission for symptom stabilization and safety. Increase Clozapine to 100 mg QAM/200 mg QHS. Monitor for drooling or constipation. Monitor for medication compliance and for any psychotropic medication side effects. Will continue to monitor ongoing response to treatment. Encouraged participation in milieu.
[2024-05-08] MEDS ORDERED: traZODone HCL 100 MG TAB PO PRN (18:21)
--- NOTE | 2024-05-08 18:24 | P.PN ---
Progress Note - Text Progress Note Date: 05/08/24 Interval history: Patient was seen anxiously pacing the hallways again today and was directable and agreeable to speak with telegraphic typewriter repairer. I evaluated patient in the psychiatrist office, with nurse Brigid present, to discuss patient's concerns about her "anxious rectum". Patient is anxious, distressed, at times tearful, about chronic "anxiety in the rectum". Patient reports she has been struggling with spasms in her rectum that radiate from her rectum to her tailbone. 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 Review of her Xray imaging from 03/29/24 shows "spina bifida occulta at lumbosacral junction" and "degenerative change of the spine". She denies hard stool today; had a bowel movement yesterday but reports she feels she feels she does not fully evacuate her bowels when having a bowel movement. She feels hopeless and repeatedly states she feels like she wants "to " because she has been living with this painful feeling in her rectum. She tells the nurse to tell her children she loves them because she thinks she is going to because her rectal issues are not getting any better. At this time patient denies any homicidal ideation, intent or plan. Denies any auditory or visual hallucinations. Patient denies any side effects from the medications and has been compliant with meds. Mental status exam: General Appearance: Patient appears to be stated age, tall slender female dressed in hospital gown, average hygiene/grooming. Behavior: No agitated behavior. Patient is distressed, tearful. Repeatedly gets up and sits down due to rectal discomfort. Speech: Patient's speech is fluent. Fast but non-pressured. Mood/Affect: Mood is anxious/depressed, affect is congruent and labile. Suicidality/Homicidality: Patient reports suicidal thoughts without specific plan or intent, but denies homicidal ideation intent or plan. Perceptions: Patient denies any auditory or visual hallucinations. Though content/process: Concern for somatic delusions regarding rectum. Thought process is ruminative/anxious. Memory and concentration: AOX3, grossly intact for the purposes of this session Judgment and insight: fair/poor Assessment/Plan: Continue with current diagnosis. Patient continues to meet criteria for inpatient psychiatric admission for symptom stabilization and safety. Continue Clozapine at 100 mg QAM/300 mg QHS for now. Monitor frequency of bowel movements. Continue Remeron 30 mg QHS for depression/sleep. Adjust Trazodone to 100 mg QHS PRN for insomnia to minimize risk of serotonin syndrome. Increase Effexor XR to 150 mg daily for depression/anxiety. Monitor for serotonin syndrome. Discontinue Miralax since bulking agents may make Clozapine-related constipation worse. Start Lactulose 10 gm BID and Senna 8.6 mg BID for Clozapine-related constipation. Increase Colace to 100 mg BID for Clozapine-related constipation. Will initiate a trial of Baclofen 10 mg BID for rectal spasms. Guardian was contacted and gave consent for meds. Continue Ativan 1 mg TID for anxiety for now, but will consider change to Valium which may offer her more relief regarding spasms. Monitor for medication compliance and for any psychotropic medication side effects. Will continue to monitor ongoing response to treatment. Encouraged participation in milieu.
[2024-05-08] MEDS: BACLOFEN 10 MG TAB PO SCH (19:58)
[2024-05-08] MEDS: SENNOSIDES 8.6 MG TAB PO SCH (19:59)
[2024-05-08] MEDS: DOCUSATE 100 MG CAP PO SCH (19:59)
[2024-05-08] MEDS: LACTULOSE 20 GM/30 ML CUP PO SCH (19:59)
[2024-05-09] MEDS: VENLAFAXINE HCL ER 150 MG CAP PO SCH (08:26)
[2024-05-09 14:02] VITALS: BMI 20.3
[2024-05-09] MEDS ORDERED: BACLOFEN 10 MG TAB PO PRN (17:25)
[2024-05-09] MEDS: BACLOFEN 10 MG TAB PO SCH (17:47)
--- NOTE | 2024-05-09 18:29 | P.PN ---
Progress Note - Text Progress Note Date: 05/09/24 Interval history: Patient was seen at the nurse's station today where she reported high anxiety over her "anxious rectum" again today. She denies bowel movement today but confirms she is still passing gas; last reported bowel movement was 2 days ago. She has started the baclofen yesterday, and objectively she appears calmer and not distressed over her "rectum" for several hours after taking the baclofen, however she claims the baclofen is not helping. Her concerns over her rectum have a delusional quality. She states she feels like she wants "to " and she's "scared" because she has been living with this feeling in her rectum. At this time, patient denies any homicidal ideation, intent or plan. Denies any auditory or visual hallucinations. Patient denies any side effects from the medications and has been compliant with meds. Sleep is documented as "slept quietly for 6(+) hours at this time" in the sleep log; did not require PRN Trazodone for sleep last night. Mental status exam: General Appearance: Patient appears to be stated age, tall slender female dres sed in hospital gown, fair hygiene/grooming. Behavior: No agitated behavior. Patient is distressed over her "anxious rectum", at the nurses station asking for help. Tends to repeat the same statements over and over. Speech: Patient's speech is fluent. Fast but non-pressured. Mood/Affect: Mood is anxious/depressed, affect is congruent and labile. Suicidality/Homicidality: Patient reports suicidal thoughts without specific plan or intent, but denies homicidal ideation intent or plan. Perceptions: Patient denies any auditory or visual hallucinations. Though content/process: Concern for somatic delusions regarding rectum. Thought process is ruminative/anxious/perseverative. Memory and concentration: AOX3, grossly intact for the purposes of this session Judgment and insight: poor Assessment/Plan: Continue with current diagnosis. Patient continues to meet criteria for inpatient psychiatric admission for symptom stabilization and safety. Increase Clozapine from 100 mg QAM/200 mg QHS to 125 mg QAM/200 mg QHS for psychosis. Monitor frequency of bowel movements and adjust dose as needed. Continue Remeron 30 mg QHS for depression/sleep. Continue Effexor XR 150 mg daily for depression/anxiety. Monitor for signs of serotonin syndrome due to multiple serotonergic agents. Discontinue Trazodone 100 mg QHS PRN to minimize polypharmacy and risk of serotonin syndrome. Patient slept well last night without Trazodone. Monitor sleep. Increase Lactulose from 10 gm BID to 20 gm BID with meals. Monitor frequency of bowel movements. Continue Senna 8.6 mg BID and Colace 100 mg BID for Clozapine-related constipation. Continue trial of Baclofen 10 mg BID with meals for reported rectal spasms. Adjust dose as needed based on response. Monitor for respiratory depression. Continue Ativan 1 mg TID for anxiety for now. Monitor for respiratory depression. Consider trial of Valium in place of Ativan (or in place of Ativan + Baclofen) for anxiety related to rectal spasms vs anxiety related to somatic delusions. Will defer this to oncoming psychiatrist. If patient does not respond to psychopharmacology once a therapeutic Clozapine level is reached, and after trying other anxiolytics/muscle relaxers such as Valium etc, would consider ECT as treatment for somatic delusions. If considering ECT, this will need to be discussed with the patient and the guardian once the guardian returns from vacation in one week. Monitor for medication compliance and for any psychotropic medication side effects. Will continue to monitor ongoing response to treatment. Encouraged participation in milieu.
[2024-05-09] MEDS: LACTULOSE 20 GM/30 ML CUP PO SCH (18:30)
[2024-05-10] MEDS: diazePAM 2 MG TAB PO SCH (16:28)
[2024-05-10] MEDS: diazePAM 5 MG TAB PO SCH (16:29)
--- NOTE | 2024-05-10 17:15 | P.PN ---
Progress Note - Text Progress Note Date: 05/10/24 Interval History: Patient was seen in her room. She was lying down but amenable to talk. When asked how she was feeling she stated "I want to be ". She reports ongoing anxiety and distress related to her bowels she feels unable to eat because of concern about her bowels. She reports not having had a bowel movement for 3 days and not a significant 1 for 9 days. She did not endorse sleeping well last night though nursing report suggested that she did get some sleep. She continues to have suicidal ideation and feels a state of hopelessness regarding her current condition. At this time patient denies any suicidal or homical ideations, intent or plan. Patient denies any auditory, visual hallucinations. Patient denies any side effects from the medications and has been compliant with meds. Mental Status Exam: General Appearance: Patient appears to be older than stated age is alert, directable, and cooperative. Behavior: Patient is calmly lying down without any agitated behavior. Speech: Patient's speech is nonpressured. Difficult to understand at times due to low volume and articulation. Mood/Affect: Mood is "terrible." Affect is congruent and constricted. Suicidality/Homicidality: Patient denies having any homicidal ideation intent or plan. She does endorse suicidal ideation. Perceptions: Patient denies any visual hallucinations and denies any auditory hallucinations Though content/process: Thought process is linear and goal-directed. She was ruminative regarding anxiety and concerns about her bowels. Memory and concentration: AOX3, grossly intact for the purposes of this session Judgment and insight: Poor Assessment: Carey Tony is a 58 year old woman with schizophrenia on Clozapine who has significant issues with anxiety and distress related to rectal discomfort that may or may not be related to a somatic delusion. Spoke with her guardian this afternoon by phone to obtain verbal consent to transition from Ativan to Valium to hopefully achieve anxiolytic effects and also the muscle relaxant effects that medication tends to have. Ideally, this will help ease Ms. Tony's discomfort. Guardian was educated on risks, benefits, and alternatives (no change) and agreed to the medication change. She had previously discussed this as an option with prior psychiatrist. - Schizophrenia - Suicidal Ideation - Rectal spasms vs. Somatic Delusion Plan: - Patient continues to meet criteria for inpatient psychiatric admission for symptom stabilization and safety. - Medications: - Continue Clozapine 125 mg QAM/200 mg QHS for psychosis. Will continue to monitor frequency of bowel movements and adjust dose as needed. - Continue Remeron 30 mg QHS for depression/sleep. - Continue Effexor XR 150 mg daily for depression/anxiety. Monitor for signs of serotonin syndrome due to multiple serotonergic agents. - Continue Lactulose 20 gm BID with meals. Monitor frequency of bowel movements. - Continue Senna 8.6 mg BID and Colace 100 mg BID for Clozapine-related constipation. - Continue trial of Baclofen 10 mg BID with meals for reported rectal spasms. Adjust dose as needed based on response. Monitor for respiratory depression. Will consider discontinuation if no effect is observed this week. - Continue hydroxyzine 25 mg BID scheduled for anxiety - Change Ativan 1 mg TID to Valium 6 mg TID (approximate equivalent dose) for anxiety related to rectal spasms vs. somatic delusions. Will monitor for respiratory depression and impact on anxiety symptoms. - Labs: Continue weekly CBC w/diff for ANC monitoring per [facility] protocol - If patient does not respond to psychopharmacology once a therapeutic Clozapine level is reached, and after trying other anxiolytics/muscle relaxers such as Valium etc, may need to consider ECT as treatment for somatic delusions. - If considering ECT, this will need to be discussed with the patient and the guardian once the guardian returns from work trip next week - Monitor for medication compliance and for any psychotropic medication side effects. - Will continue to monitor ongoing response to treatment. Encouraged participation in milieu. ]
[2024-05-11 12:34] LABS: Basophils # (A) 0.1 k/uL (0-0.2); Basophils % (A) 1 %; Eosinophils # (A) 0.1 k/uL (0-0.7); Eosinophils % (A) 1 %; HCT 42.9 % (34.0-46.0); HGB 13.2 gm/dL (11.4-16.0); Lymphocytes # (A) 2.2 k/uL (1.0-4.8); Lymphocytes % (A) 18 %; MCH 27.4 pg (25.0-35.0); MCHC 30.8 g/dL (31.0-37.0); MCV 89.1 fL (80.0-100.0); Mean Platelet Volume 9.5; Monocytes # (A) 0.8 k/uL (0-1.0); Monocytes % (A) 7 %; Neutrophils # (A) 8.9 k/uL (1.3-7.7); Neutrophils % (A) 74 %; Platelet Count 175 k/uL (150-450); RBC 4.81 m/uL (3.80-5.40); RDW 14.4 % (11.5-15.5); WBC 12.1 k/uL (3.8-10.6)
--- NOTE | 2024-05-11 16:18 | P.PN ---
Progress Note - Text Progress Note Date: 05/11/24 Interval History: Patient was seen at the bedside. She was awake but in bed. She described feeling "terrible" today due to concerns about her rectum. She stated she's "anxious about the rectum ". She reports continuing to eat but has ongoing concerns about her bowels and the discomfort that she feels in her rectum. She denies having had a bowel movement yesterday or today. When asked about suicidal ideation she said "I feel like killing myself". She denies homicidal ideation intent or plan. She denies experiencing auditory or visual hallucinations. Patient denies any side effects from the medications and has been compliant with meds. Mental Status Exam: General Appearance: Patient appears to be stated age is alert, directable, and as cooperative as she can be. Behavior: Patient is calmly lying down without any agitated behavior. Speech: Patient's speech is fluent though slightly pressured. Articulation is poor. Mood/Affect: Mood is depressed, affect is congruent and constricted. Suicidality/Homicidality: Patient denies having homicidal ideation intent or plan. She endorses suicidal ideation. Perceptions: Patient denies any visual hallucinations and denies any auditory hallucinations Though content/process: Thought process is ruminative. Goal-directed responses to questions, though not elaborative. Memory and concentration: AOX3, grossly intact for the purposes of this session Judgment and insight: Poor Assessment: Carey Tony is a 58 year old woman with schizophrenia on Clozapine who has significant issues with anxiety and distress related to rectal discomfort that may or may not be related to a somatic delusion. She has been transitioned to Valium to help with muscle relaxation and anxiolytic effects. No appreciable change at this time. May need to revisit bowel regimen. Additionally, reviewed labs from today; her WBC count has increased with predominant neutrophils. Vitals were stable. She has been afebrile. Will repeat tomorrow to trend and request input/support from Internal Medicine if needed. - Schizophrenia - Suicidal Ideation - Rectal spasms vs. Somatic Delusion Plan: - Patient continues to meet criteria for inpatient psychiatric admission for symptom stabilization and safety. - Medications: - Continue Clozapine 125 mg QAM/200 mg QHS for psychosis. Will continue to monitor frequency of bowel movements and adjust dose as needed. - Continue Remeron 30 mg QHS for depression/sleep. - Continue Effexor XR 150 mg daily for depression/anxiety. Monitor for signs of serotonin syndrome due to multiple serotonergic agents. - Continue Lactulose 20 gm BID with meals. Monitor frequency of bowel movements. - Continue Senna 8.6 mg BID and Colace 100 mg BID for Clozapine-related constipation. - Continue trial of Baclofen 10 mg BID with meals for reported rectal spasms. Adjust dose as needed based on response. Monitor for respiratory depression. Will consider discontinuation if no effect is observed this week. - Continue hydroxyzine 25 mg BID scheduled for anxiety - Continue Valium 6 mg TID (approximate equivalent for prior Ativan dose) for anxiety related to rectal spasms vs. somatic delusions. Will monitor for respiratory depression and impact on anxiety symptoms. - Labs: Continue weekly CBC w/diff for ANC monitoring per [facility] protocol; repeat CBC in AM due to elevated WBC count. - If patient does not respond to psychopharmacology once a therapeutic Clozapine level is reached, and after trying other anxiolytics/muscle relaxers such as Valium etc, may need to consider ECT as treatment for somatic delusions. However, also discussing whether patient is approaching their baseline. - Monitor for medication compliance and for any psychotropic medication side effects. - Will continue to monitor ongoing response to treatment. Encouraged participation in milieu. Patient has been approved for a care home; may consi [facility] discharge as early as next week.
[2024-05-12 06:54] LABS: Basophils % (A) 0 %; Eosinophils # (A) 0.1 k/uL (0-0.7); Eosinophils % (A) 2 %; HGB 13.1 gm/dL (11.4-16.0); Lymphocytes # (A) 2.9 k/uL (1.0-4.8); Lymphocytes % (A) 48 %; MCH 27.3 pg (25.0-35.0); MCHC 30.4 g/dL (31.0-37.0); MCV 89.8 fL (80.0-100.0); Mean Platelet Volume 8.9; Monocytes # (A) 0.5 k/uL (0-1.0); Monocytes % (A) 8 %; Neutrophils # (A) 2.4 k/uL (1.3-7.7); Neutrophils % (A) 41 %; Platelet Count 168 k/uL (150-450); RBC 4.78 m/uL (3.80-5.40); RDW 14.5 % (11.5-15.5)
--- NOTE | 2024-05-12 11:38 | P.PN ---
Progress Note - Text Progress Note Date: 05/12/24 Interval History: Patient was seen in her room while lying in bed. When asked how she is doing she immediately said "not good...my rectum". She continues to describe concern and distress related to her bowels and rectum. She reports having gone several days without a bowel movement. She does note her appetite is decreased but she does continue to eat meals on a regular basis. She endorses ongoing suicidal ideation, stating "I want to ." She denies identified method or plan. She also denies homicidal ideation. Patient denies any auditory and visual hallucinations. Patient denies any side effects from the medications and has been compliant with meds. Mental Status Exam: General Appearance: Patient appears to be stated age is alert, directable, and as cooperative as she can be. Behavior: Patient is calmly lying down without any agitated behavior. Speech: Patient's speech is fluent though slightly pressured. Articulation is poor. Mood/Affect: Mood is distressed, affect is congruent and constricted. Suicidality/Homicidality: Patient denies having homicidal ideation intent or plan. She endorses suicidal ideation. Perceptions: Patient denies any visual hallucinations and denies any auditory hallucinations Though content/process: Thought process is ruminative. Goal-directed responses to questions, though not elaborative. Memory and concentration: AOX3, grossly intact for the purposes of this session Judgment and insight: Poor Assessment: Carey Tony is a 59 (Happy Birthday!) year old woman with schizophrenia on Clozapine who has significant issues with anxiety and distress related to rectal discomfort that may or may not be related to a somatic delusion. There is a perseverative quality to her statements about her rectum. It's difficult for her to answer additional questions about these symptoms, but she does deny nausea and abdominal pain. One point of consideration is whether the concerns about the rectum are perseverative ruminations/delusions. Will continue to evaluate and explore possibilities. She may benefit from a colonoscopy on an outpatient basis given her age and these ongoing complaints. She reports having had one 6 months ago but these records are not available and she's unable to recall the outcome. Repeat CBC from today was back in normal range, appropriately down-trending from yesterday's elevated WBC count. Will continue to monitor with weekly CBCs as scheduled for clozapine monitoring. No medication changes today. - Schizophrenia - Suicidal Ideation, chronic - Rectal spasms vs. Somatic Delusion Plan: - Patient continues to meet criteria for inpatient psychiatric admission for symptom stabilization and safety. - Medications: - Continue Clozapine 125 mg QAM/200 mg QHS for psychosis. Will continue to monitor frequency of bowel movements and adjust dose as needed. - Continue Remeron 30 mg QHS for depression/sleep. - Continue Effexor XR 150 mg daily for depression/anxiety. Monitor for signs of serotonin syndrome due to multiple serotonergic agents. - Continue Lactulose 20 gm BID with meals. Monitor frequency of bowel movements. - Continue Senna 8.6 mg BID and Colace 100 mg BID for Clozapine-related constipation. - Continue trial of Baclofen 10 mg BID with meals for reported rectal spasms. Adjust dose as needed based on response. Monitor for respiratory depression. Will consider discontinuation if no effect is observed this week. - Continue hydroxyzine 25 mg BID scheduled for anxiety - Continue Valium 6 mg TID (approximate equivalent for prior Ativan dose) for anxiety related to rectal spasms vs. somatic delusions. Will monitor for respiratory depression and impact on anxiety symptoms. - Labs: Continue weekly CBC w/diff for ANC monitoring per [facility] protocol - If patient does not respond to psychopharmacology once a therapeutic Clozapine level is reached, and after trying other anxiolytics/muscle relaxers such as Valium etc, may need to consider ECT as treatment for somatic delusions. However, also discussing whether patient is approaching their baseline. - Monitor for medication compliance and for any psychotropic medication side effects. - Will continue to monitor ongoing response to treatment. Encouraged participation in milieu. Patient has been approved for a half-way.
--- NOTE | 2024-05-13 11:39 | P.PN ---
Progress Note - Text Progress Note Date: 05/13/24 Interval History: Patient was seen in her room while lying in bed. When asked how she is doing she immediately said "it's in my rectum". She continues to state that she can not go on like this. She states she wants to . She has not been going to meals, and she endorses fair sleep. She claims that the medication that was given for rectal spasms is not working. She continues to claim "I cant do this anymore" She denies identified method or plan. She denies homicidal ideation. Patient denies any auditory and visual hallucinations. Patient denies any side effects from the medications and has been compliant with meds. Mental Status Exam: General Appearance: Patient appears to be stated age is alert, directable, and as cooperative as she can be. Improved grooming. Behavior: Patient is calmly lying down without any agitated behavior. Speech: Patient's speech is fluent and non pressured Mood/Affect: Mood is less distress, affect is congruent and constricted. Suicidality/Homicidality: Patient denies having homicidal ideation intent or plan. passive SI, no plan. Perceptions: Patient denies any visual hallucinations and denies any auditory hallucinations Though content/process: Thought process is ruminative. [place] Memory and concentration: AOX3, grossly intact for the purposes of this session Judgment and insight: Poor chronically, improving Assessment: - Schizophrenia - Suicidal Ideation, chronic - Rectal spasms vs. Somatic Delusion Plan: - Patient continues to meet criteria for inpatient psychiatric admission for symptom stabilization and safety. - Medications: - Continue Clozapine 125 mg QAM/200 mg QHS for psychosis. Will continue to monitor frequency of bowel movements and adjust dose as needed. - Continue Remeron 30 mg QHS for depression/sleep. - Continue Effexor XR 150 mg daily for depression/anxiety. Monitor for signs of serotonin syndrome due to multiple serotonergic agents. - Continue Lactulose 20 gm BID with meals. Monitor frequency of bowel movements. - Continue Senna 8.6 mg BID and Colace 100 mg BID for Clozapine-related constipation. - Continue trial of Baclofen 10 mg BID with meals for reported rectal spasms. Adjust dose as needed based on response. Monitor for respiratory depression. Will consider discontinuation if no effect is observed this week. - Continue hydroxyzine 25 mg BID scheduled for anxiety - Continue Valium 6 mg TID (approximate equivalent for prior Ativan dose) for anxiety related to rectal spasms vs. somatic delusions. Will monitor for respiratory depression and impact on anxiety symptoms. - Labs: Continue weekly CBC w/diff for ANC monitoring per [facility] protocol - Monitor for medication compliance and for any psychotropic medication side effects. - Will continue to monitor ongoing response to treatment. Encouraged participation in milieu. Patient has been approved for a [facility] crisis bed, likely discharge thursday.
[2024-05-13] MEDS: PROPRANOLOL 20 MG TAB PO SCH (20:01)
--- NOTE | 2024-05-14 11:35 | P.PN ---
Subjective Progress Note Date: 05/14/24 Principal diagnosis: IMPRESSIONS: schizophrenia Patient Name: Carey Tony Date of : 1965 Patient Status: Inpatient Attending Provider: Gregory Kelly Date: 05/14/24 initialization Date: 04/01/24 08:44 Subjective data: Patient is well-known to me from the last visit from the hospital several weeks ago Her problems still continue to be regarding her obsession with her bowels and somatic delusions Patient was seen in the patient lounge where she was sitting comfortably She became very anxious immediately Patient states that she has been having problems with her bowels and her rectum Remains somatically preoccupied Affect seemed to fluctuate between marked anxiety and fearfulness Self-esteem and confidence remains low Remains somatically preoccupied Formal operational judgment and insight are poor Denies any auditory or visual hallucinations Denies any suicidal homicidal ideations but admits feeling helpless MENTAL STATUS EXAM: General Appearance: Patient appears to be older than stated age, is alert, appearance is disheveled Behavior: Patient is standing and is. Fidgety, anxious, nervous Speech: Patient's speech is fluent and nonpressured. Mood/Affect: Patient reports their mood is "bad", affect is congruent and constricted. [place] Suicidality/Homicidality: Patient denies having any homicidal ideation intent or plan. endorses suicidal ideations, with no intent or plan Perceptions: Patient denies any visual hallucinations and denies any auditory hallucinations Though content/process: There is evidence of delusional thought content and thought process is focused on anxiety about her rectum Memory and concentration: AOX3, grossly intact for the purposes of this session. Judgment and insight: chronically poor IMPRESSIONS: schizophrenia Plan: Agree with the current treatment plan - Patient continues to meet criteria for inpatient psychiatric admission for symptom stabilization and safety. - Medications: - Continue Clozapine 125 mg QAM/200 mg QHS for psychosis. Will continue to monitor frequency of bowel movements and adjust dose as needed. - Continue Remeron 30 mg QHS for depression/sleep. - Continue Effexor XR 150 mg daily for depression/anxiety. Monitor for signs of serotonin syndrome due to multiple serotonergic agents. - Continue Lactulose 20 gm BID with meals. Monitor frequency of bowel movements. - Continue Senna 8.6 mg BID and Colace 100 mg BID for Clozapine-related constipation. - Continue trial of Baclofen 10 mg BID with meals for reported rectal spasms. Adjust dose as needed based on response. Monitor for respiratory depression. Will consider discontinuation if no effect is observed this week. - Continue hydroxyzine 25 mg BID scheduled for anxiety - Continue Valium 6 mg TID (approximate equivalent for prior Ativan dose) for anxiety related to rectal spasms vs. somatic delusions. Will monitor for respiratory depression and impact on anxiety symptoms. - Labs: Continue weekly CBC w/diff for ANC monitoring per [facility]S protocol - Monitor for medication compliance and for any psychotropic medication side effects. - Will continue to monitor ongoing response to treatment. Encouraged participation in milieu. Patient has been approved for a care home crisis bed, likely discharge thursday. -Timothy Alvarado MD Objective - Vital Signs Vital signs: Vital Signs Temp 97.3 F L 05/14/24 06:00 Pulse 90 05/14/24 06:00 Resp 18 05/14/24 06:00 BP 109/75 05/14/24 06:00 Pulse Ox 97 05/14/24 06:00 FiO2 Intake & Output 05/13/24 05/14/24 05/14/24 18:59 06:59 18:59 Intake Total 300 Balance 300 Weight 60.8 kg Intake: Oral 300 - Labs CBC & Chem 7: 05/12/24 06:25 04/06/24 17:44
--- NOTE | 2024-05-15 09:28 | P.PN ---
Subjective Progress Note Date: 05/15/24 Principal diagnosis: IMPRESSIONS: schizophrenia Patient Name: Carey Tony Date of : 1965 Patient Status: Inpatient Attending Provider: Gregory Kelly Date: 05/15/24 initialization Date: 04/01/24 08:44 Subjective data: Patient was seen and the conversation was similar to the previous day Patient was seen in the patient lounge where she was sitting comfortably She became very anxious immediately Patient states that she has been having problems with her bowels and her rectum Remains somatically preoccupied Affect seemed to fluctuate between marked anxiety and fearfulness Self-esteem and confidence remains low Remains somatically preoccupied Formal operational judgment and insight are poor Denies any auditory or visual hallucinations Denies any suicidal homicidal ideations but admits feeling helpless MENTAL STATUS EXAM: General Appearance: Patient appears to be older than stated age, is alert, appearance is disheveled Behavior: Patient is standing and is. Fidgety, anxious, nervous Speech: Patient's speech is fluent and nonpressured. Mood/Affect: Patient reports their mood is "bad", affect is congruent and constricted. [place] Suicidality/Homicidality: Patient denies having any homicidal ideation intent or plan. endorses suicidal ideations, with no intent or plan Perceptions: Patient denies any visual hallucinations and denies any auditory hallucinations Though content/process: There is evidence of delusional thought content and thought process is focused on anxiety about her rectum Memory and concentration: AOX3, grossly intact for the purposes of this session. Judgment and insight: chronically poor IMPRESSIONS: schizophrenia Plan: Agree with the current treatment plan - Patient continues to meet criteria for inpatient psychiatric admission for symptom stabilization and safety. - Medications: - Continue Clozapine 125 mg QAM/200 mg QHS for psychosis. Will continue to monitor frequency of bowel movements and adjust dose as needed. - Continue Remeron 30 mg QHS for depression/sleep. - Continue Effexor XR 150 mg daily for depression/anxiety. Monitor for signs of serotonin syndrome due to multiple serotonergic agents. - Continue Lactulose 20 gm BID with meals. Monitor frequency of bowel movements. - Continue Senna 8.6 mg BID and Colace 100 mg BID for Clozapine-related constipation. - Continue trial of Baclofen 10 mg BID with meals for reported rectal spasms. Adjust dose as needed based on response. Monitor for respiratory depression. Will consider discontinuation if no effect is observed this week. - Continue hydroxyzine 25 mg BID scheduled for anxiety - Continue Valium 6 mg TID (approximate equivalent for prior Ativan dose) for anxiety related to rectal spasms vs. somatic delusions. Will monitor for respiratory depression and impact on anxiety symptoms. - Labs: Continue weekly CBC w/diff for ANC monitoring per [facility]S protocol - Monitor for medication compliance and for any psychotropic medication side effects. - Will continue to monitor ongoing response to treatment. Encouraged participation in milieu. Patient has been approved for a intermediate crisis bed, likely discharge thursday. -Timothy Alvarado MD Objective - Vital Signs Vital signs: Vital Signs Temp 97.9 F 05/15/24 06:59 Pulse 71 05/15/24 06:59 Resp 16 05/15/24 06:59 BP 106/70 05/15/24 06:59 Pulse Ox 100 05/15/24 06:59 FiO2 - Labs CBC & Chem 7: 05/12/24 06:25 04/06/24 17:44
--- NOTE | 2024-05-16 12:44 | P.PN ---
Progress Note - Text Progress Note Date: 05/16/24 Interval History: Patient was seen in the [facility] today, and agreeable to speak with senior writer. Suzanne ent continues to be somatically preoccupied with an anxious feeling in her rectum. She is eating more while on the unit, and she endorses fair sleep. She claims that the medication that was given for rectal spasms is not working. She continues to claim "I cant do this anymore". She feels hopeless due to feeling anxiety in her rectum. Car Repairer explained to the patient that she has a bed at [facility], and explained that she will be discharged there tomorrow. Patient agreeable to discharge. She denies homicidal ideation. Patient denies any auditory and visual hallucinations. Patient denies any side effects from the medications and has been compliant with meds. Mental Status Exam: General Appearance: Patient appears to be stated age is alert, directable, and as cooperative as she can be. Improved grooming. Behavior: Patient is calmly seated without any agitated behavior. Speech: Patient's speech is fluent and non pressured Mood/Affect: Mood is less distressed, affect is congruent and constricted. Suicidality/Homicidality: Patient denies having homicidal ideation intent or plan. passive SI, no plan. Perceptions: Patient denies any visual hallucinations and denies any auditory hallucinations Though content/process: Thought process is ruminative. [place] Memory and concentration: AOX3, grossly intact for the purposes of this session Judgment and insight: Poor chronically, improving Assessment: - Schizophrenia - Suicidal Ideation, chronic - Rectal spasms vs. Somatic Delusion Plan: - Patient continues to meet criteria for inpatient psychiatric admission for symptom stabilization and safety. - Medications: - Continue Clozapine 125 mg QAM/200 mg QHS for psychosis. Will continue to monitor frequency of bowel movements and adjust dose as needed. - Continue Remeron 30 mg QHS for depression/sleep. - Continue Effexor XR 150 mg daily for depression/anxiety. Monitor for signs of serotonin syndrome due to multiple serotonergic agents. - Continue Lactulose 20 gm BID with meals. Monitor frequency of bowel movements. - Continue Senna 8.6 mg BID and Colace 100 mg BID for Clozapine-related constipation. - Continue trial of Baclofen 10 mg BID with meals for reported rectal spasms. Adjust dose as needed based on response. Monitor for respiratory depression. Will consider discontinuation if no effect is observed this week. - Continue hydroxyzine 25 mg BID scheduled for anxiety - Continue Valium 6 mg TID (approximate equivalent for prior Ativan dose) for anxiety related to rectal spasms vs. somatic delusions. Will monitor for respiratory depression and impact on anxiety symptoms. - Labs: Continue weekly CBC w/diff for ANC monitoring per [facility]S protocol - Monitor for medication compliance and for any psychotropic medication side effects. - Will continue to monitor ongoing response to treatment. Encouraged participation in milieu. Patient has been approved for a [facility] crisis bed at [facility], Discharge tomorrow
[2024-05-17 08:02] VITALS: BP 122/96; PULSE 130; RESP 17; TEMP 97.8
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
== END 2024-05-17 13:23 | disposition home health service (06) | DRG 885 ==
LOC: EEVIPCON → 3MHU 08:40
PROVIDERS: ADMIT Psychiatry & Neurology Psychiatry; ATTEND Psychiatry & Neurology Psychiatry
DX: F20.9 Schizophrenia, unspecified (principal); X78.1XXA Intentional self-harm by knife, initial encounter; Z91.138 Patient's unintentional underdosing of medication regimen for other reason; F32.A Depression, unspecified; D72.829 Elevated white blood cell count, unspecified; S61.519A Laceration without foreign body of unspecified wrist, initial encounter; I10 Essential (primary) hypertension; F41.9 Anxiety disorder, unspecified; G24.01 Drug induced subacute dyskinesia; G47.8 Other sleep disorders; T43.506A Underdosing of unspecified antipsychotics and neuroleptics, initial encounter; R19.5 Other fecal abnormalities; K58.1 Irritable bowel syndrome with constipation; K59.09 Other constipation; K59.4 Anal spasm; Q76.0 Spina bifida occulta; Y92.199 Unspecified place in other specified residential institution as the place of occurrence of the external cause; Z91.51 Personal history of suicidal behavior; Z81.8 Family history of other mental and behavioral disorders; Z79.899 Other long term (current) drug therapy; Z88.8 Allergy status to other drugs, medicaments and biological substances
CPT/HCPCS: 72170; 74018; 74019; 76770; 80053; 80159; 81001; 82272; 83036; 84484; 85025; 87045; 87046; 87077; 87086; 87172; 87186; 93005

== ENCOUNTER 2024-08-10 14:13 | Emergency (ER) | payer MEDICAID, OTHER ==
[2024-08-10 14:22] VITALS: TEMP 97.8
--- NOTE | 2024-08-10 15:47 | ED ---
Psych HPI - General Chief Complaint: Psychiatric Symptoms Stated Complaint: Urogenital Time Seen by Provider: 08/10/24 14:24 Source: patient, RN notes reviewed Mode of arrival: ambulatory - History of Present Illness Initial Comments: This is a 59-year-old female who presents to the emergency department for possible psychiatric evaluation. Patient lives in a senior care nearby and has a history of schizophrenia. She was going on a walk and walked herself here, and states that she feels like she has something in her rectum and the rectum is itchy. Legal guardian is at bedside and states that this is a common complaint for the patient. Unsure if it is related to the schizophrenia or if she may have gas. Patient denies any suicidal or homicidal ideations. Legal guardian states that she seems like she is otherwise at her baseline. - Related Data Home Medications Medication Instructions Recorded Confirmed Baclofen 20 mg PO HS 08/10/24 08/10/24 Baclofen [Lioresal] 10 mg PO DAILY@0800 08/10/24 08/10/24 Benztropine Mesylate [Cogentin] 0.5 mg PO BID@0800,209908/10/24 08/10/24 Docusate [Colace] 100 mg PO BID@0800,209908/10/24 08/10/24 Lactulose [Cephulac] 20 gm PO BID@0800,1600 08/10/24 08/10/24 Mirtazapine 30 mg PO HS 08/10/24 08/10/24 Propranolol [Inderal] 20 mg PO BID@0800,2100 08/10/24 08/10/24 Psyllium Husk (with Sugar) 2 tsp PO DAILY@0800 08/10/24 08/10/24 [Metamucil Powder] Sennosides [Senokot] 8.6 mg PO BID@0800,209908/10/24 08/10/24 Venlafaxine HCl ER [Effexor XR] 150 mg PO DAILY@0800 08/10/24 08/10/24 cloZAPine [Clozaril] 200 mg PO BID@0800,2100 08/10/24 08/10/24 diazePAM [Valium] 10 mg PO BID@0900,1600 08/10/24 08/10/24 hydrOXYzine pamoate [Vistaril] 25 mg PO BID@0800,2100 08/10/24 08/10/24 Allergies Allergy/AdvReac Type Severity Reaction Status Date / Time aripiprazole [From Abilify] AdvReac Mild "PASSES Verified 08/10/24 17:54 OUT" Review of Systems ROS Statement: Those systems with pertinent positive or pertinent negative responses have been documented in the HPI. ROS Other: All systems not noted in ROS Statement are negative. Past Medical History Past Medical History: Hypertension Additional Past Medical History / Comment(s): Demonstrating s/s of tardive dyskinesia AEB lifting legs up and down while standing and facial movements. History of Any Multi-Drug Resistant Organisms: None Reported Past Surgical History: Section Additional Past Surgical History / Comment(s): x 2 Past Anesthesia/Blood Transfusion Reactions: No Reported Reaction Past Psychological History: Schizoaffective Disorder Smoking Status: Never smoker Past Alcohol Use History: None Reported Past Drug Use History: None Reported General Exam Limitations: no limitations General appearance: alert, in no apparent distress Head exam: Present: atraumatic, normocephalic, normal inspection Respiratory exam: Present: normal lung sounds bilaterally. Absent: respiratory distress, wheezes, rales, rhonchi, stridor Cardiovascular Exam: Present: regular rate, normal rhythm, normal heart sounds. Absent: systolic murmur, diastolic murmur, rubs, gallop, clicks GI/Abdominal exam: Present: soft, normal bowel sounds. Absent: distended, tenderness, guarding, rebound, rigid Neurological exam: Present: alert, oriented X3, CN II-XII intact Skin exam: Present: warm, dry, intact, normal color. Absent: rash Course Vital Signs 08/10/24 08/10/24 14:19 18:54 Temperature 97.8 F Pulse Rate 96 94 Respiratory 16 18 Rate Blood Pressure 133/84 127/84 O2 Sat by Pulse 97 98 Oximetry Medical Decision Making - Medical Decision Making This is a 59 year old male who presents to the emergency department for psychiatric evaluation. Was pt. sent in by a medical professional or institution? @ -No Did you speak to anyone other than the patient for history? @ -Legal guardian provided most of the history. Did you review nursing and triage notes? @ -Yes, and I agree, it is accurate with regards to the patient's symptoms. Were old charts reviewed? @ -No Differential Diagnosis? @ -Differential Mental Health: Depression, anxiety, bipolar, psychosis, schizophrenia, borderline personality, situational depression, adjustment disorder, behavioral disorder, brain tumor, malingering, substance abuse, encephalopathy, medication reaction, dementia, hy pothyroidism, degenerative neurologic disorder, lupus.... This is not meant to be all-inclusive list EKG interpreted by me (3pts min.)? @ -Not obtained X-rays interpreted by me (1pt min.)? @ -KUB x-ray obtained. My interpretation identifies prominent overall stool burden. CT interpreted by me (1pt min.)? @ -Not obtained U/S interpreted by me (1pt. min.)? @ -Not obtained What testing was considered but not performed? (CT, X-rays, U/S, labs)? Why? @ -None What meds were considered but not given? Why? @ -None Did you discuss the management of the patient with other professionals? @ -Yes, Farzana with EPS, who advised that the patient is at her baseline and can be discharged home. Did you reconcile home meds? @ -No Was smoking cessation discussed for >3mins.? @ -No Was critical care preformed (if so, how long)? @ -No Were there social determinants of health that impacted care today? How? (Homelessness, low income, unemployed, alcoholism, drug addiction, transportation, low edu. Level, literacy, decrease access to med. care, shelter, rehab)? @ -No Was there de-escalation of care discussed even if they declined? (Discuss DNR or withdrawal of care, Hospice)? @ -No What co-morbidities impacted this encounter? (DM, HTN, Smoking, COPD, CAD, Cancer, CVA, Hep., AIDS, mental health diagnosis, sleep apnea, morbid obesity)? @ -Schizophrenia Was patient admitted / discharged? @ -Discharged. KUB x-ray obtained demonstrating moderate to severe fecal stasis. BAT was 0.0 and she was cleared for EPS evaluation. EPS evaluated the patient and advised that she has a fixed delusion of something being in her rectum. She is otherwise at her baseline and does not meet criteria for inpatient psychiatric hospitalization at this time. Safety plan was completed. Patient's medication list reviewed and she is already taking multiple m edications for her constipation including Colace, lactulose, psyllium, and Senokot. She will need to follow-up with her primary care provider and GI to further evaluate her medications and her symptoms to find a more appropriate and effective regimen for her. Patient otherwise discharged home with legal guardian in stable condition. Case discussed with ED attending Dr. Yoon Return precautions reviewed in depth, the patient is instructed to return to the emergency department with any new, worsening, or concerning symptoms. Patient and legal guardian verbalized understanding. Undiagnosed new problem with uncertain prognosis? @ -None Drug Therapy requiring intensive monitoring for toxicity (Heparin, Nitro, Insulin, Cardizem)? @ -None Were any procedures done? @ -None Diagnosis/symptom? @ -Constipation, delusions Acute, or Chronic, or Acute on Chronic? @ -Chronic Uncomplicated (without systemic symptoms) or Complicated (systemic symptoms)? @ -Uncomplicated Side effects of treatment? @ -None Exacerbation, Progression, or Severe Exacerbation] @ -Stable Poses a threat to life or bodily function? @ -Not at this time - Lab Data Lab Results 08/10/24 Range/Units 15:02 Urine Color Yellow Urine Appearance Clear (Clear) Urine pH 5.5 (5.0-8.0) Ur Specific [place] 1.028 (1.001-1.035) Urine Protein Trace H (Negative) Urine Glucose (UA) Negative (Negative) Urine Ketones Negative (Negative) Urine Blood Negative (Negative) Urine Nitrite Negative (Negative) Urine Bilirubin Negative (Negative) Urine Urobilinogen <2.0 (<2.0) mg/dL Ur Leukocyte Esterase Negative (Negative) Urine Opiates Screen Not Detected (NotDetected) Ur Oxycodone Screen Not Detected (NotDetected) Urine Methadone Screen Not Detected (NotDetected) Ur Barbiturates Screen Not Detected (NotDetected) U Tricyclic Antidepress Detected H (NotDetected) Ur Phencyclidine Scrn Not Detected (NotDetected) Ur Amphetamines Screen Not Detected (NotDetected) U Methamphetamines Scrn Not Detected (NotDetected) U Benzodiazepines Scrn Detected H (NotDetected) Urine Cocaine Screen Not Detected (NotDetected) U Marijuana (THC) Screen Not Detected (NotDetected) - Radiology Data Radiology results: report reviewed, image reviewed Disposition Clinical Impression: Constipation, Delusions Disposition: HOME SELF-CARE Instructions (If sedation given, give patient instructions): Constipation (ED) Additional Instructions: Return to the emergency department with any new, worsening, or concerning symptoms. Follow up with your primary care provider in 1-2 days. Is patient prescribed a controlled substance at d/c from ED?: No Referrals: Tabitha Hernandez MD [Primary Care Provider] - 1-2 days Time of Disposition: 18:27
[2024-08-10 15:48] LABS: Appearance,Urine Clear (Clear); Bilirubin,Urine Negative (Negative); Blood,Urine Negative (Negative); Color,Urine Yellow; Glucose,Urine (UA) Negative (Negative); Ketones,Urine Negative (Negative); Leukocyte Esterase,Urine Negative (Negative); Nitrite,Urine Negative (Negative); PH, Urine 5.5 (5.0-8.0); Protein,Urine Trace (Negative); Specific Gravity,Urine 1.028 (1.001-1.035); Urobilinogen,Urine <2.0 mg/dL (<2.0)
[2024-08-10 15:56] LABS: Amphetamine Screen,Urine Not Detected (NotDetected); Barbiturate Screen,Urine Not Detected (NotDetected); Benzodiazepines Screen,Urine Detected (NotDetected); Cocaine Screen,Urine Not Detected (NotDetected); Methadone Screen, Urine Not Detected (NotDetected); Opiate Screen,Urine Not Detected (NotDetected); Oxycodone Screen, Urine Not Detected (NotDetected); Phencyclidine Screen,Urine Not Detected (NotDetected); Tricyclic Antidepressant,Urine Detected (NotDetected); Urn Cannabinoid Scrn Not Detected (NotDetected)
--- NOTE | 2024-08-10 16:48 | XR ---
EXAMINATION TYPE: XR KUB DATE OF EXAM: 08/10/2024 COMPARISON: 11/29/2023 HISTORY: Pain TECHNIQUE: Single supine KUB image of the abdomen is obtained FINDINGS: Small bowel demonstrates no evidence for dilatation or air fluid levels. Gas and fecal material is seen in non-distended colon. No convincing evidence for pneumoperitoneum. No unusual calcifications. Moderate to severe fecal stasis seen throughout the colon. The lung bases are clear. The osseous structures are intact. IMPRESSION: 1. Moderate to severe fecal stasis seen throughout the colon. [facility], , 08/10/2024 4:46 PM
[2024-08-10 18:56] VITALS: BP 127/84; PULSE 94; RESP 18
== END 2024-08-10 18:56 | disposition home or self-care (01) ==
LOC: EC 14:13
CPT/HCPCS: 74018; 80306; 81003; 82075; 99285

== ENCOUNTER 2024-08-30 21:03 | Inpatient (IN) | payer MEDICARE, OTHER ==
[2024-08-30 22:01] LABS: Appearance,Urine Cloudy (Clear); Bacteria,Urine Occasional /hpf; Bilirubin,Urine 1+ (Negative); Blood,Urine Small (Negative); Calcium Oxalate Crystals,Urine Many /hpf; Color,Urine Yellow; Glucose,Urine (UA) Negative (Negative); Hyaline Casts,Urine 13 /lpf (0-2); Ketones,Urine 1+ (Negative); Leukocyte Esterase,Urine Large (Negative); Mucus,Urine Many /hpf; Nitrite,Urine Negative (Negative); PH, Urine 5.5 (5.0-8.0); Protein,Urine 1+ (Negative); Specific Gravity,Urine 1.029 (1.001-1.035); Squamous Epithelial Cell,Urine 31 /hpf (0-4); WBC,Urine 61 /hpf (0-5)
[2024-08-30 22:08] LABS: Basophils % (A) 0 %; Eosinophils # (A) 0.2 k/uL (0-0.7); Eosinophils % (A) 2 %; HCT 38.3 % (34.0-46.0); HGB 12.2 gm/dL (11.4-16.0); Lymphocytes # (A) 2.5 k/uL (1.0-4.8); Lymphocytes % (A) 26 %; MCH 27.9 pg (25.0-35.0); MCHC 31.8 g/dL (31.0-37.0); MCV 87.7 fL (80.0-100.0); Mean Platelet Volume 9.2; Monocytes # (A) 0.7 k/uL (0-1.0); Monocytes % (A) 7 %; Neutrophils # (A) 6.1 k/uL (1.3-7.7); Neutrophils % (A) 63 %; Platelet Count 153 k/uL (150-450); RBC 4.36 m/uL (3.80-5.40); RDW 13.4 % (11.5-15.5); WBC 9.6 k/uL (3.8-10.6)
[2024-08-30 22:31] LABS: ALT 44 U/L (4-34); AST 36 U/L (14-36); African American GFR (CKD) >90 (>60 ml/min/1.73 sqM); Albumin 3.7 g/dL (3.5-5.0); Alkaline Phosphatase 82 U/L (38-126); Anion Gap 5 mmol/L; Blood Urea Nitrogen 14 mg/dL (7-17); Calcium 8.6 mg/dL (8.4-10.2); Carbon Dioxide 27 mmol/L (22-30); Chloride 110 mmol/L (98-107); Glucose 85 mg/dL (74-99); Non-African American GFR(CKD) 88 (>60 ml/min/1.73 sqM); Potassium 3.4 mmol/L (3.5-5.1); Sodium 142 mmol/L (137-145); Total Bilirubin 0.5 mg/dL (0.2-1.3)
--- NOTE | 2024-08-30 22:49 | ED ---
Female Urogenital HPI - General Chief complaint: Urogenital Stated complaint: Discharge from Rectum Time Seen by Provider: 08/30/24 21:25 Source: patient Mode of arrival: ambulatory - History of Present Illness Initial comments: 59-year-old female presenting with chief complaint of rectal pain. Patient has been seen here in the past with rectal pain. She describes it as a throbbing sensation. She also admits to abdominal pain and bloating. States her last bowel movement was 3 days ago and small. Denies fevers at home, patient is mildly febrile here. No chest pain or difficulty breathing. No flank pain dysuria or hematuria. Admits to nausea, no vomiting. No rectal bleeding, states that she may have some mucus-like discharge but is unsure if this is coming from the rectum or vagina. Symptoms have been ongoing for "a while", states that they were making her anxious this evening. And evaluated by psych for this complaint previously. - Related Data Home Medications Medication Instructions Recorded Confirmed Baclofen 20 mg PO HS 08/10/24 08/10/24 Baclofen [Lioresal] 10 mg PO DAILY@0800 08/10/24 08/10/24 Benztropine Mesylate [Cogentin] 0.5 mg PO BID@0800,209908/10/24 08/10/24 Docusate [Colace] 100 mg PO BID@0800,209908/10/24 08/10/24 Lactulose [Cephulac] 20 gm PO BID@0800,1600 08/10/24 08/10/24 Mirtazapine 30 mg PO HS 08/10/24 08/10/24 Propranolol [Inderal] 20 mg PO BID@0800,209908/10/24 08/10/24 Psyllium Husk (with Sugar) 2 tsp PO DAILY@0800 08/10/24 08/10/24 [Metamucil Powder] Sennosides [Senokot] 8.6 mg PO BID@0800,209908/10/24 08/10/24 Venlafaxine HCl ER [Effexor XR] 150 mg PO DAILY@0800 08/10/24 08/10/24 cloZAPine [Clozaril] 200 mg PO BID@0800,2100 08/10/24 08/10/24 diazePAM [Valium] 10 mg PO BID@0900,1600 08/10/24 08/10/24 hydrOXYzine pamoate [Vistaril] 25 mg PO BID@0800,2100 08/10/24 08/10/24 Allergies Allergy/AdvReac Type Severity Reaction Status Date / Time aripiprazole [From Abilify] AdvReac Mild "PASSES Verified 08/30/24 21:20 OUT" Review of Systems ROS Statement: Those systems with pertinent positive or pertinent negative responses have been documented in the HPI. ROS Other: All systems not noted in ROS Statement are negative. Past Medical History Past Medical History: Hypertension Additional Past Medical History / Comment(s): Demonstrating s/s of tardive dyskinesia AEB lifting legs up and down while standing and facial movements. History of Any Multi-Drug Resistant Organisms: None Reported Past Surgical History: Section Additional Past Surgical History / Comment(s): x 2 Past Anesthesia/Blood Transfusion Reactions: No Reported Reaction Past Psychological History: Schizoaffective Disorder Smoking Status: Never smoker Past Alcohol Use History: None Reported Past Drug Use History: None Reported General Exam General appearance: alert, anxious Head exam: Present: atraumatic, normocephalic, normal inspection Eye exam: Present: normal appearance, EOMI Neck exam: Present: normal inspection. Absent: meningismus Respiratory exam: Present: normal lung sounds bilaterally. Absent: respiratory distress, wheezes, rales, rhonchi, stridor Cardiovascular Exam: Present: regular rate, normal rhythm, normal heart sounds. Absent: systolic murmur, diastolic murmur, rubs, gallop, clicks GI/Abdominal exam: Present: distended, tenderness. Absent: guarding, rebound, rigid Neurological exam: Present: alert, oriented X3 Psychiatric exam: Present: anxious Skin exam: Present: warm, dry, normal color Course Vital Signs 08/30/24 08/30/24 08/31/24 21:14 23:00 01:18 Temperature 99.9 F H 97.1 F L 98.0 F Pulse Rate 112 H 87 Respiratory 18 15 Rate Blood Pressure 134/69 97/66 O2 Sat by Pulse 96 97 Oximetry 08/31/24 02:18 Temperature Pulse Rate 90 Respiratory 18 Rate Blood Pressure 99/67 O2 Sat by Pulse 97 Oximetry Medical Decision Making - Medical Decision Making Was pt. sent in by a medical professional or institution (Dr., PA, TRAUMA PROGRAM MANAGER, urgent c are, hospital, or assisted...) When possible be specific @ -No Did you speak to anyone other than the patient for history (EMS, parent, family, police, friend...)? What history was obtained from this source @ -No Did you review nursing and triage notes (agree or disagree)? Why? @ -I reviewed and agree with nursing and triage notes Were old charts reviewed (outside hosp., previous admission, EMS record, old EKG, old radiological studies, urgent care reports/EKG's, assisted records)? Report findings @ -Last ER visit reviewed Differential Diagnosis (chest pain, altered mental status, abdominal pain women, abdominal pain men, vaginal bleeding, weakness, fever, dyspnea, syncope, h eadache, dizziness, GI bleed, back pain, seizure, CVA, palpatations, mental health, musculoskeletal)? @ -[facility] Differential Abdominal Pain Women: Appendicitis, Cholecystitis, diverticulosis, ischemic bowel, pancreatitis, hepatitis, UTI, gastroenteritis, AAA, incarcerated hernia, bowel obstruction, c onstipation, inflammatory bowel, hepatitis, peptic ulcer disease, splenic infarction, perforated viscus, vulvitis, ovarian torsion, PID, kidney stone, placenta abruption... This is not meant to be an all-inclusive list EKG interpreted by me (3pts min.). @ -As above X-rays interpreted by me (1pt min.). @ -None done CT interpreted by me (1pt min.). @ -CT shows overall nonspecific bowel gas patterns. Moderate diffuse colonic fecal stasis and/or constipation is seen. Cannot exclude a partial distal small bowel obstruction. Cannot exclude pneumatosis versus trapped air depending to fecal debris. U/S interpreted by me (1pt. min.). @ -None done What testing was considered but not performed or refused? (CT, X-rays, U/S, labs)? Why? @ -None What meds were considered but not given or refused? Why? @ -None Did you discuss the management of the patient with other professionals (professionals i.e. KENNY Agrawal, TRAUMA PROGRAM MANAGER, lab, RT, psych nurse, sr. social media & mobile manager, neck pinner, teacher, airline pilot/first officer, caser in)? Give summary @ -My attending spoke with the [facility] provider on-call for admission Was smoking cessation discussed for >3mins.? @ -No Was critical care preformed (if so, how long)? @ -No Were there social determinants of health that impacted care today? How? (Homelessness, low income, unemployed, alcoholism, drug addiction, transportation, low edu. Level, literacy, decrease access to med. care, long-term, rehab)? @ -No Was there de-escalation of care discussed even if they declined (Discuss DNR or withdrawal of care, Hospice)? DNR status @ -No What co-morbidities impacted this encounter? (DM, HTN, Smoking, COPD, CAD, Cancer, CVA, ARF, Chemo, Hep., AIDS, mental health diagnosis, sleep apnea, morbid obesity)? @ -None Was patient admitted / discharged? Hospital course, mention meds given and route, prescriptions, significant lab abnormalities, going to OR and other pertinent info. @ -59-year-old female presenting with chief complaint of rectal pain. Patient has had continuous complaints of rectal pain. She is also complaining of abdominal pain and distention. She has had an episode of vomiting as well. History of constipation. On exam the patient is moderately tender in the a bdomen is distended. No leukocytosis or anemia. Shows large leukocytes with 61 WBCs, patient treated with Rocephin for UTI. Negative for influenza, RSV, COVID. CT shows extreme constipation. Difficult to determine if this may be a partial small bowel obstruction and/or pneumatosis. Lactic acid is WNL. CRP is sent out. Patient will be admitted for observation and evaluation by surgery. She and her guardian are agreeable with this plan. I discussed this case with my attending Dr. Carrera Undiagnosed new problem with uncertain prognosis? @ -No Drug Therapy requiring intensive monitoring for toxicity (Heparin, Nitro, Insulin, Cardizem)? @ -No Were any procedures done? @ -No Diagnosis/symptom? @ -Constipation, rule out small bowel obstruction, rule out pneumatosis, UTI Acute, or Chronic, or Acute on Chronic? @ -Acute Uncomplicated (without systemic symptoms) or Complicated (systemic symptoms)? @ -Complicated Side effects of treatment? @ -No Exacerbation, Progression, or Severe Exacerbation? @ -No Poses a threat to life or bodily function? How? (Chest pain, [place], [place], pneumonia, PE, COPD, DKA, ARF, appy, cholecystitis, CVA, Diverticulitis, Homicidal, Suicidal, threat to staff... and all critical care pts) @ -Potentially - Lab Data Result diagrams: 08/30/24 22:01 08/30/24 22:01 Lab Results 08/30/24 08/30/24 08/30/24 Range/Units 21:34 22:01 22:01 WBC 9.6 (3.8-10.6) k/uL RBC 4.36 (3.80-5.40) m/uL Hgb 12.2 (11.4-16.0) gm/dL Hct 38.3 (34.0-46.0) % MCV 87.7 (80.0-100.0) fL MCH 27.9 (25.0-35.0) pg MCHC 31.8 (31.0-37.0) g/dL RDW 13.4 (11.5-15.5) % Plt Count 153 (150-450) k/uL MPV 9.2 Neutrophils % 63 % Lymphocytes % 26 % Monocytes % 7 % Eosinophils % 2 % Basophils % 0 % Neutrophils # 6.1 (1.3-7.7) k/uL Lymphocytes # 2.5 (1.0-4.8) k/uL Monocytes # 0.7 (0-1.0) k/uL Eosinophils # 0.2 (0-0.7) k/uL Basophils # 0.0 (0-0.2) k/uL Sodium 142 (137-145) mmol/L Potassium 3.4 L (3.5-5.1) mmol/L Chloride 110 H (98-107) mmol/L Carbon Dioxide 27 (22-30) mmol/L Anion Gap 5 mmol/L BUN 14 (7-17) mg/dL Creatinine 0.76 (0.52-1.04) mg/dL Est GFR (CKD-EPI)AfAm >90 (>60 ml/min/1.73 sqM) Est GFR (CKD-EPI)NonAf 88 (>60 ml/min/1.73 sqM) Glucose 85 (74-99) mg/dL Plasma Lactic Acid Bonilla (0.7-2.0) mmol/L Calcium 8.6 (8.4-10.2) mg/dL Total Bilirubin 0.5 (0.2-1.3) mg/dL AST 36 (14-36) U/L ALT 44 H (4-34) U/L Alkaline Phosphatase 82 (38-126) U/L Total Protein 6.0 L (6.3-8.2) g/dL Albumin 3.7 (3.5-5.0) g/dL Urine Color Yellow Urine Appearance Cloudy H (Clear) Urine pH 5.5 (5.0-8.0) Ur Specific [place] 1.029 (1.001-1.035) Urine Protein 1+ H (Negative) Urine Glucose (UA) Negative (Negative) Urine Ketones 1+ H (Negative) Urine Blood Small H (Negative) Urine Nitrite Negative (Negative) Urine Bilirubin 1+ H (Negative) Urine Urobilinogen 4.0 (<2.0) mg/dL Ur Leukocyte Esterase Large H (Negative) Urine WBC 61 H (0-5) /hpf Ur Squamous Epith Cells 31 H (0-4) /hpf Calcium Oxalate Crystal Many H (None) /hpf Urine Bacteria Occasional H (None) /hpf Hyaline Casts 13 H (0-2) /lpf Urine Mucus Many H (None) /hpf Influenza Type A (PCR) (Not Detectd) Influenza Type B (PCR) (Not Detectd) RSV (PCR) (Not Detectd) SARS-CoV-2 (PCR) (Not Detectd) 08/30/24 08/30/24 Range/Units 22:01 22:01 WBC (3.8-10.6) k/uL RBC (3.80-5.40) m/uL Hgb (11.4-16.0) gm/dL Hct (34.0-46.0) % MCV (80.0-100.0) fL MCH (25.0-35.0) pg MCHC (31.0-37.0) g/dL RDW (11.5-15.5) % Plt Count (150-450) k/uL MPV Neutrophils % % Lymphocytes % % Monocytes % % Eosinophils % % Basophils % % Neutrophils # (1.3-7.7) k/uL Lymphocytes # (1.0-4.8) k/uL Monocytes # (0-1.0) k/uL Eosinophils # (0-0.7) k/uL Basophils # (0-0.2) k/uL Sodium (137-145) mmol/L Potassium (3.5-5.1) mmol/L Chloride (98-107) mmol/L Carbon Dioxide (22-30) mmol/L Anion Gap mmol/L BUN (7-17) mg/dL Creatinine (0.52-1.04) mg/dL Est GFR (CKD-EPI)AfAm (>60 ml/min/1.73 sqM) Est GFR (CKD-EPI)NonAf (>60 ml/min/1.73 sqM) Glucose (74-99) mg/dL Plasma Lactic Acid Bonilla 0.9 (0.7-2.0) mmol/L Calcium (8.4-10.2) mg/dL Total Bilirubin (0.2-1.3) mg/dL AST (14-36) U/L ALT (4-34) U/L Alkaline Phosphatase (38-126) U/L Total Protein (6.3-8.2) g/dL Albumin (3.5-5.0) g/dL Urine Color Urine Appearance (Clear) Urine pH (5.0-8.0) Ur Specific [place] (1.001-1.035) Urine Protein (Negative) Urine Glucose (UA) (Negative) Urine Ketones (Negative) Urine Blood (Negative) Urine Nitrite (Negative) Urine Bilirubin (Negative) Urine Urobilinogen (<2.0) mg/dL Ur Leukocyte Esterase (Negative) Urine WBC (0-5) /hpf Ur Squamous Epith Cells (0-4) /hpf Calcium Oxalate Crystal (None) /hpf Urine Bacteria (None) /hpf Hyaline Casts (0-2) /lpf Urine Mucus (None) /hpf Influenza Type A (PCR) Not Detected (Not Detectd) Influenza Type B (PCR) Not Detected (Not Detectd) RSV (PCR) Not Detected (Not Detectd) SARS-CoV-2 (PCR) Not Detected (Not Detectd) Disposition Clinical Impression: Constipation, Partial small bowel obstruction, Pneumatosis intestinalis, Uri nary tract infection Disposition: ADMITTED IP TO THIS HOSP Condition: Fair Time of Disposition: 03:49
[2024-08-30] MEDS: ACETAMINOPHEN TAB 325 MG TAB PO STA (23:03)
--- NOTE | 2024-08-30 23:42 | CT ---
EXAMINATION TYPE: CT abdomen pelvis w con DATE OF EXAM: 08/30/2024 HISTORY: Pt is here because she feels like she has a rectal issue. Legal guardian is aware that pt i s here for evaluation CT DLP: 617.6mGycm Automated Exposure Control for Dose Reduction was Utilized. CONTRAST: CT scan of the abdomen and pelvis is performed with IV Contrast, patient injected with 100 mL of Isov ue 300. COMPARISON: None. FINDINGS: LUNG BASES: No significant abnormality is appreciated. LIVER/GB: Liver is heterogeneously hypodense consistent with diffuse fatty infiltration. PANCREAS: No significant abnormality is seen. SPLEEN: No significant abnormality is seen. ADRENALS: No significant abnormality is seen. KIDNEYS: No significant abnormality is seen. BOWEL: No suspicious dilatation of stomach. There are fluid and fecal prominent small bowel loops th roughout the lower abdomen and pelvis. Some abnormally dilated up to 3.5 cm in the right lower quadra nt. There are fecal prominent colonic loops in the periphery to the rectum which is poorly distended. Wandering cecum into the right mid abdomen is noted. Nondependent air in the cecum is present axial image 32. UTERUS/ADNEXA: No gross abnormality seen. LYMPH NODES: No greater than 1cm abdominal or pelvic lymph nodes are appreciated. OSSEOUS STRUCTURES: Bilateral pars defect L5 level with slight grade 1 anterolisthesis L5 on S1. Mode rate disc space narrowing with vacuum disc phenomenon at L5-S1. OTHER: No significant additional abnormality is seen. IMPRESSION: 1. Overall nonspecific bowel gas pattern. Moderate diffuse colonic fecal stasis and/or constipation i s seen. Cannot exclude a partial distal small bowel obstruction. Cannot exclude pneumatosis versus tr apped air depending to fecal debris. Clinical correlation and correlation with lactic acid values is advised.. Consider surgical evaluation. [facility], , 08/30/2024 11:40 PM
[2024-08-31] MEDS: SODIUM CHLORIDE 0.9% 1,000 ML IV ONE (01:41)
[2024-08-31] MEDS: cefTRIAXone IN SWFI 1,000 MG/10 ML SYRINGE IVP STA (01:42)
[2024-08-31] MEDS ORDERED: NALOXONE 0.4 MG/ML 1 ML VIAL IV PRN (03:46)
[2024-08-31] MEDS ORDERED: ONDANSETRON 4 MG/2 ML VIAL IVP PRN (03:46)
[2024-08-31] MEDS: SODIUM CHLORIDE 0.9% 1,000 ML IV SCH (04:21)
[2024-08-31] MEDS: KETOROLAC 15 MG/ML 1 ML VIAL IVP PRN (07:54)
[2024-08-31] MEDS: PANTOPRAZOLE 40 MG/10 ML VIAL IVP SCH (10:30)
[2024-08-31] MEDS: ENOXAPARIN 40 MG/0.4 ML SYRINGE SQ SCH (13:04)
--- NOTE | 2024-08-31 13:21 | P.GSCN ---
History of Present Illness Consult date: 08/31/24 History of present illness: CHIEF COMPLAINT: Rectal pain HISTORY OF PRESENT ILLNESS: This is a 59-year-old female who presented the hospital with complaints of rectal pain for the last several weeks. She also complains of discomfort across the lower abdomen. She reports her last bowel movement was about 3 days ago and it was hard and small. She is having flatus. She did have episode of vomiting on Thursday. Patient does have a history of constipation. Abdominal surgeries include x 2. She had a CT scan abdomen pelvis completed that reported overall nonspecific bowel gas pattern. Moderate diffuse colonic fecal stasis and/or constipation is seen. Cannot exclude a partial distal small bowel obstruction. Cannot exclude pneumatosis versus trapped air depending on to fecal debris. PAST MEDICAL HISTORY: Hypertension, schizoaffective disorder, PAST SURGICAL HISTORY: x 2 MEDICATIONS: See below ALLERGIES: See below SOCIAL HISTORY: No illicit drug use. REVIEW OF SYSTEMS: CONSTITUTIONAL: Denies fever or chills. HEENT: Denies blurred vision, vision changes, or eye pain. Denies hemoptysis CARDIOVASCULAR: Denies chest pain or pressure. RESPIRATORY: No shortness of breath. GASTROINTESTINAL: See HPI for pertinent findings HEMATOLOGIC: Denies bleeding disorders. GENITOURINARY: Denies any blood in urine or increased urinary frequency. SKIN: Denies pruitis. Denies rash. PHYSICAL EXAM: VITAL SIGNS: Reviewed GENERAL: Well-developed in no acute distress. HEENT: No sclera icterus. Extraocular movements grossly intact. Moist buccal mucosa. Head is atraumatic, normocephalic. No nasal drainage. ABDOMEN: Soft. Mildly distended. Mild discomfort with palpation across the lower abdomen NEUROLOGIC: Alert and oriented. Cranial nerves II through XII grossly intact. LABORATORY DATA: WBC 9.6 Hgb 12.2 platelets 153 Sodium 142 potassium 3.4 creatinine 0.76 Lactic acid 0.9 Total bilirubin 0.5 AST 36 ALT 44 alk phos 82 CRP 0.40 Influenza, RSV and COVID not detected IMAGING: CT scan findings as stated above ASSESSMENT: 1. Rectal and lower abdominal pain. CT scan reporting nonspecific bowel gas pattern. Moderate diffuse colonic fecal stasis and/or constipation. Cannot exclude partial distal small bowel obstruction or pneumatosis 2. Constipation 3. Hypokalemia PLAN: -Further recommendations forthcoming per surgeon -NG tube ordered for decompression -Keep patient n.p.o. -Continue IV fluids -Replace potassium Physician Ledge Man note has been reviewed by physician. Signing provider agrees with the documented findings, assessment, and plan of care. Past Medical History Past Medical History: Hypertension Additional Past Medical History / Comment(s): Demonstrating s/s of tardive dyskinesia AEB lifting legs up and down while standing and facial movements. History of Any Multi-Drug Resistant Organisms: None Reported Past Surgical History: Section Additional Past Surgical History / Comment(s): x 2 Past Anesthesia/Blood Transfusion Reactions: No Reported Reaction Past Psychological History: Schizoaffective Disorder Smoking Status: Never smoker Past Alcohol Use History: None Reported Past Drug Use History: None Reported Medications and Allergies Home Medications Medication Instructions Recorded Confirmed Type Baclofen 20 mg PO HS 08/10/24 08/31/24 History Baclofen [Lioresal] 10 mg PO DAILY@0800 08/10/24 08/31/24 History Benztropine Mesylate [Cogentin] 0.5 mg PO BID@0800,209908/10/24 08/31/24 History Docusate [Colace] 100 mg PO BID@0800,209908/10/24 08/31/24 History Lactulose [Cephulac] 20 gm PO BID@0800,1600 08/10/24 08/31/24 History Mirtazapine 30 mg PO HS 08/10/24 08/31/24 History Propranolol [Inderal] 20 mg PO BID@0800,209908/10/24 08/31/24 History Psyllium Husk (with Sugar) 2 tsp PO DAILY@0800 08/10/24 08/31/24 History [Metamucil Powder] Sennosides [Senokot] 8.6 mg PO BID@0800,209908/10/24 08/31/24 History Venlafaxine HCl ER [Effexor XR] 150 mg PO DAILY@0800 08/10/24 08/31/24 History cloZAPine [Clozaril] 200 mg PO BID@0800,209908/10/24 08/31/24 History diazePAM [Valium] 10 mg PO BID@0900,1600 08/10/24 08/31/24 History hydrOXYzine pamoate [Vistaril] 25 mg PO BID@0800,2100 08/10/24 08/31/24 History Pantoprazole Sodium [Protonix] 40 mg PO AC-[id number] 08/31/24 08/31/24 History Allergies Allergy/AdvReac Type Severity Reaction Status Date / Time aripiprazole [From Abilify] AdvReac Mild "PASSES Verified 08/31/24 07:10 OUT" Surgical - Exam Osteopathic Statement: *. No significant issues noted on an osteopathic structural exam other than those noted in the History and Physical/Consult. Vital Signs Temp Pulse Resp BP Pulse Ox 99.9 F H 112 H 18 134/69 96 08/30/24 21:14 08/30/24 21:14 08/30/24 21:14 08/30/24 21:14 08/30/24 21:14 Results - Labs 08/30/24 22:01 08/30/24 22:01 Abnormal Lab Results - Last 24 Hours (Table) 08/30/24 08/30/24 Range/Units 21:34 22:01 Potassium 3.4 L (3.5-5.1) mmol/L Chloride 110 H (98-107) mmol/L ALT 44 H (4-34) U/L Total Protein 6.0 L (6.3-8.2) g/dL Urine Appearance Cloudy H (Clear) Urine Protein 1+ H (Negative) Urine Ketones 1+ H (Negative) Urine Blood Small H (Negative) Urine Bilirubin 1+ H (Negative) Ur Leukocyte Esterase Large H (Negative) Urine WBC 61 H (0-5) /hpf Ur Squamous Epith Cells 31 H (0-4) /hpf Calcium Oxalate Crystal Many H (None) /hpf Urine Bacteria Occasional H (None) /hpf Hyaline Casts 13 H (0-2) /lpf Urine Mucus Many H (None) /hpf Diabetes panel 08/30/24 Range/Units 22:01 Sodium 142 (137-145) mmol/L Potassium 3.4 L (3.5-5.1) mmol/L Chloride 110 H (98-107) mmol/L Carbon Dioxide 27 (22-30) mmol/L BUN 14 (7-17) mg/dL Creatinine 0.76 (0.52-1.04) mg/dL Glucose 85 (74-99) mg/dL Calcium 8.6 (8.4-10.2) mg/dL AST 36 (14-36) U/L ALT 44 H (4-34) U/L Alkaline Phosphatase 82 (38-126) U/L Total Protein 6.0 L (6.3-8.2) g/dL Albumin 3.7 (3.5-5.0) g/dL Calcium panel 08/30/24 Range/Units 22:01 Calcium 8.6 (8.4-10.2) mg/dL Albumin 3.7 (3.5-5.0) g/dL Pituitary panel 08/30/24 Range/Units 22:01 Sodium 142 (137-145) mmol/L Potassium 3.4 L (3.5-5.1) mmol/L Chloride 110 H (98-107) mmol/L Carbon Dioxide 27 (22-30) mmol/L BUN 14 (7-17) mg/dL Creatinine 0.76 (0.52-1.04) mg/dL Glucose 85 (74-99) mg/dL Calcium 8.6 (8.4-10.2) mg/dL Adrenal panel 08/30/24 Range/Units 22:01 Sodium 142 (137-145) mmol/L Potassium 3.4 L (3.5-5.1) mmol/L Chloride 110 H (98-107) mmol/L Carbon Dioxide 27 (22-30) mmol/L BUN 14 (7-17) mg/dL Creatinine 0.76 (0.52-1.04) mg/dL Glucose 85 (74-99) mg/dL Calcium 8.6 (8.4-10.2) mg/dL Total Bilirubin 0.5 (0.2-1.3) mg/dL AST 36 (14-36) U/L ALT 44 H (4-34) U/L Alkaline Phosphatase 82 (38-126) U/L Total Protein 6.0 L (6.3-8.2) g/dL Albumin 3.7 (3.5-5.0) g/dL Assessment and Plan Assessment: continue aggressive bowel regimen not surgical abdomen serial abdominal exams Time with Patient: Less than 30
[2024-08-31] MEDS ORDERED: Potassium Replacement Protocol 1 EACH MISC MISCELLANE PRN (13:44)
[2024-08-31] MEDS: ACETAMINOPHEN TAB 325 MG TAB PO PRN (14:05)
[2024-08-31] MEDS: POTASSIUM BICARBONATE/CIT AC 20 MEQ TABLET.EFF NG-TUBE STA (14:05)
[2024-08-31] MEDS: POTASSIUM CHLORIDE ER 20 MEQ TAB.ER PO STA (14:15)
[2024-08-31] MEDS: bisacodyL 10 MG SUPP RECTAL SCH (15:39)
[2024-08-31] MEDS: diazePAM 5 MG TAB PO SCH (16:09)
--- NOTE | 2024-08-31 16:29 | P.HPIM ---
History of Present Illness History of present illness; 59-year-old female with a past medical history of hypertension presents to the ED with complaints of constipation. Patient reports she has been seen recently in the ED for rectal pain and characterizes t he pain as a throbbing sensation. Patient reports her last bowel movement was 3 days ago and was small in nature. Patient reports the symptoms have been going on for quite some time but is not able to describe exactly how long. Patient reports yesterday that her symptoms were making her extremely anxious so she decided to be seen in the ER. Of note patient was evaluated for psych for a complaint similar to this during her last visit. Initial lab work from the ER was significant for WBC 9.6, hemoglobin 12.2, MCV 87.7, sodium 142, potassium 3.4, creatinine 0.76, AST 36, ALT 44, urinalysis significant for large leukocyte esterase, WBC 61, squamous epithelial 31, calcium oxalate crystals many, and hyaline cast 13. Influenza type A and B, RSV, COVID all negative. ER CT ABD: Nonspecific bowel gas pattern, moderate diffuse colonic fecal stasis and her constipation is seen. Cannot exclude partial distal small bowel obstruction, pneumatosis, or trapped air. Patient admitted to internal medicine service REVIEW OF SYSTEMS: CONSTITUTIONAL: No fever, no malaise, no fatigue. HEENT: No recent visual problems or hearing problems. Denied any sore throat. CARDIOVASCULAR: No chest pain, orthopnea, PND, no palpitations, no syncope. PULMONARY: No shortness of breath, no cough, no hemoptysis. GASTROINTESTINAL: No diarrhea, admits to nausea and vomiting and abdominal pain, and rectal pain. NEUROLOGICAL: No headaches, no weakness, no numbness. HEMATOLOGICAL: Denies any bleeding or petechiae. GENITOURINARY: Denies any burning micturition, frequency, or urgency. MUSCULOSKELETAL/RHEUMATOLOGICAL: Denies any joint pain, swelling, or any muscle pain. ENDOCRINE: Denies any polyuria or polydipsia. The rest of the 14-point review of systems is negative. PHYSICAL EXAMINATION: GENERAL: The patient is alert and oriented x3, not in any acute distress. Well developed, well nourished. HEENT: Pupils are round and equally reacting to light. EOMI. No scleral icterus. No conjunctival pallor. Normocephalic, atraumatic. No pharyngeal erythema. No thyromegaly. CARDIOVASCULAR: S1 and S2 present. No murmurs, rubs, or gallops. PULMONARY: Chest is clear to auscultation b/l, no wheezing or crackles. ABDOMEN: Soft, nontender, slightly distended, slightly higher pitched bowel sounds. No palpable organomegaly. MUSCULOSKELETAL: No joint swelling or deformity. EXTREMITIES: No cyanosis, clubbing, or pedal edema. NEUROLOGICAL: Gross neurological examination did not reveal any focal deficits. SKIN: No rashes. Assessment & Plan: Acute: #Constipation/fecal stasis versus potential partial distal small bowel obstruction: #Rectal and lower abdominal pain Continue NS 75 cc/h Bowel rest/n.p.o. NG tube ordered Enema ordered General Surgery on consult, appreciate further recommendations #Hypokalemia: Continue to monitor BMP Continue to replete potassium Chronic: #Hypertension: Continue home medications Continue to monitor F: NS 75 cc/h E: None N: N.p.o. A: Normally ambulates unassisted at home DVT ppx: Lovenox SQ 40 daily GI ppx: Protonix 40 mg IV daily Dispo: Pending conical course Roger Espinosa MD PGY-1 FM Dictation was produced using [employer] dictation software. please excuse any grammatical, word or spelling errors. Past Medical History Past Medical History: Hypertension Additional Past Medical History / Comment(s): Demonstrating s/s of tardive dyskinesia AEB lifting legs up and down while standing and facial movements. History of Any Multi-Drug Resistant Organisms: None Reported Past Surgical History: Section Additional Past Surgical History / Comment(s): x 2 Past Anesthesia/Blood Transfusion Reactions: No Reported Reaction Past Psychological History: Schizoaffective Disorder Smoking Status: Never smoker Past Alcohol Use History: None Reported Past Drug Use History: None Reported Medications and Allergies Home Medications Medication Instructions Recorded Confirmed Type Baclofen 20 mg PO HS 08/10/24 08/31/24 History Baclofen [Lioresal] 10 mg PO DAILY@0800 08/10/24 08/31/24 History Benztropine Mesylate [Cogentin] 0.5 mg PO BID@0800,2100 08/10/24 08/31/24 History Docusate [Colace] 100 mg PO BID@0800,209908/10/24 08/31/24 History Lactulose [Cephulac] 20 gm PO BID@0800,1600 08/10/24 08/31/24 History Mirtazapine 30 mg PO HS 08/10/24 08/31/24 History Propranolol [Inderal] 20 mg PO BID@0800,209908/10/24 08/31/24 History Psyllium Husk (with Sugar) 2 tsp PO DAILY@0800 08/10/24 08/31/24 History [Metamucil Powder] Sennosides [Senokot] 8.6 mg PO BID@0800,209908/10/24 08/31/24 History Venlafaxine HCl ER [Effexor XR] 150 mg PO DAILY@0800 08/10/24 08/31/24 History cloZAPine [Clozaril] 200 mg PO BID@0800,209908/10/24 08/31/24 History diazePAM [Valium] 10 mg PO BID@0900,1600 08/10/24 08/31/24 History hydrOXYzine pamoate [Vistaril] 25 mg PO BID@0800,209908/10/24 08/31/24 History Pantoprazole Sodium [Protonix] 40 mg PO AC-BRKFST 08/31/24 08/31/24 History Allergies Allergy/AdvReac Type Severity Reaction Status Date / Time aripiprazole [From [facility]] AdvReac Mild "PASSES Verified 08/31/24 07:10 OUT" Physical Exam Vitals: Vital Signs Temp Pulse Pulse Resp BP BP Pulse Ox 08/31/24 07:15 97.7 F 95 16 118/71 93 L 08/31/24 06:50 81 15 106/61 95 08/31/24 05:50 81 16 124/81 97 08/31/24 05:29 97.9 F 81 16 106/72 97 08/31/24 02:18 90 18 99/67 97 08/31/24 01:18 98.0 F 87 15 97/66 97 08/30/24 23:00 97.1 F L 08/30/24 21:14 99.9 F H 112 H 18 134/69 96 Intake and Output 08/30/24 08/31/24 08/31/24 22:59 06:59 14:59 Other: Voiding Method Toilet Weight 63.503 kg Results CBC & Chem 7: 08/30/24 22:01 08/30/24 22:01 Labs: Abnormal Lab Results - Last 24 Hours (Table) 08/30/24 08/30/24 Range/Units 21:34 22:01 Potassium 3.4 L (3.5-5.1) mmol/L Chloride 110 H (98-107) mmol/L ALT 44 H (4-34) U/L Total Protein 6.0 L (6.3-8.2) g/dL Urine Appearance Cloudy H (Clear) Urine Protein 1+ H (Negative) Urine Ketones 1+ H (Negative) Urine Blood Small H (Negative) Urine Bilirubin 1+ H (Negative) Ur Leukocyte Esterase Large H (Negative) Urine WBC 61 H (0-5) /hpf Ur Squamous Epith Cells 31 H (0-4) /hpf Calcium Oxalate Crystal Many H (None) /hpf Urine Bacteria Occasional H (None) /hpf Hyaline Casts 13 H (0-2) /lpf Urine Mucus Many H (None) /hpf
[2024-08-31] MEDS: ALPRAZolam 0.25 MG TAB PO PRN (18:07)
[2024-08-31] MEDS: LACTULOSE 20 GM/30 ML CUP PO SCH (19:55)
[2024-08-31] MEDS: PROPRANOLOL 20 MG TAB PO SCH (19:56)
[2024-08-31] MEDS: MIRTAZAPINE 15 MG TAB PO SCH (19:56)
[2024-08-31] MEDS: cloZAPine 100 MG TAB PO SCH (20:20)
[2024-08-31] MEDS ORDERED: hydrOXYzine pamoate 25 MG CAP PO SCH (21:00)
[2024-09-01 09:03] LABS: Basophils # (A) 0.03 X 10*3/uL (0.00-0.10); Basophils % (A) 0.5 %; Eosinophils # (A) 0.16 X 10*3/uL (0.04-0.35); Eosinophils % (A) 2.8 %; HGB 11.4 g/dL (12.0-15.0); Lymphocytes # (A) 2.05 X 10*3/uL (0.90-5.00); Lymphocytes % (A) 36.2 %; MCH 27.6 pg (27.0-32.0); MCHC 30.8 g/dL (32.0-37.0); MCV 89.6 FL (80.0-97.0); Mean Platelet Volume 11.5 FL (9.5-12.2); Monocytes # (A) 0.45 X 10*3/uL (0.20-1.00); NRBC Per 100 WBC 0 X 10*3/uL (0.00-0.01); Neutrophils # (A) 2.95 X 10*3/uL (1.80-7.70); Neutrophils % (A) 52.1 %; Platelet Count 152 X 10*3/uL (140-440); RBC 4.13 X 10*6/uL (4.10-5.20); WBC 5.66 X 10*3/uL (4.50-10.00)
[2024-09-01 09:08] LABS: BUN/Creat Ratio 14.33 Ratio (12.00-20.00); Blood Urea Nitrogen 8.6 mg/dL (9.0-27.0); Chloride 109 mmol/L (96-109); Glucose 63 mg/dL (70-110); Potassium 4.3 mmol/L (3.5-5.5); Sodium 142 mmol/L (135-145)
[2024-09-01] MEDS: VENLAFAXINE HCL ER 150 MG CAP PO SCH (11:21)
[2024-09-01] MEDS: MAGNESIUM HYDROXIDE 2,400 MG/30 ML CUP PO PRN (11:48)
[2024-09-01 13:50] VITALS: BMI 21.2
[2024-09-01] MEDS: PEG 3350 (236 GM/BTL) + LYTES 4,000 ML BOTTLE PO ONE (14:46)
--- NOTE | 2024-09-01 14:56 | P.PN ---
Subjective HPI:History of present illness; 59-year-old female with a past medical history of hypertension presents to the ED with complaints of constipation. Patient reports she has been seen recently in the ED for rectal pain and characterizes the pain as a throbbing sensation. Patient reports her last bowel movement was 3 days ago and was small in nature. Patient reports the symptoms have been going on for quite some time but is not able to describe exactly how long. Patient reports yesterday that her symptoms were making her extremely anxious so she decided to be seen in the ER. Of note patient was evaluated for psych for a complaint similar to this during her last visit. Initial lab work from the ER was significant for WBC 9.6, hemoglobin 12.2, MCV 87.7, sodium 142, potassium 3.4, creatinine 0.76, AST 36, ALT 44, urinalysis significant for large leukocyte esterase, WBC 61, squamous epithelial 31, calcium oxalate crystals many, and hyaline cast 13. Influenza type A and B, RSV, COVID all negative. ER CT ABD: Nonspecific bowel gas pattern, moderate diffuse colonic fecal stasis and her constipation is seen. Cannot exclude partial distal small bowel obstruction, pneumatosis, or trapped air. Subjective: 09/01/2024: Patient seen at bedside. No significant overnight events. Patient continues to complain of significant rectal pain, but insists pain meds make no difference and that the pain is solely from her inability to pass stool. Patient was given a mixture of milk of magnesia, prune juice, and a shot of molasses and was able to have a significant bowel movement but continues to complain of significant rectal pain. Pertinent positives and negatives discussed above, a complete review of systems was preformed and all the other sytems were negative. Vitals Signs Reveiwed. General: non toxic, no distress, appears at stated age, normal weight Derm: no unusual rashes/lesions, warm Head: atraumatic, normocephalic, symmetric Eyes: EOMI, no lid lag, anicteric sclera, pupils equal round reactive to light ENT: Nose and ears atraumatic Neck: No cervical lymphadenopathy, trachea midline, supple Mouth: no lip lesion, mucus membranes moist Cardiovascular: S1S2 reg, no murmur, positive dorsalis pedis pulse bilateral, no edema Lungs: Decreased air entry bilaterally, no rhonchi, no rales, no accessory muscle use Abdominal: soft, nontender to palpation, no guarding Ext: muscle strength 5 out of 5 in all 4 extremities grossly, no gross muscle atrophy, no contractures, Neuro: CN II-XI grossly intact, no gross focal neuro deficits Psych: Alert, oriented, appropriate affect Data Reveiwed Today: Patient Labs: WBC 5.66, hemoglobin 11.4, MCV 89.6, sodium 142, potassium 4.3, bicarb 21, creatinine 0.6, glucose 63, and calcium 8. Imaging: No new imaging Assessment & Plan: Acute: #Constipation/fecal stasis versus potential partial distal small bowel obstruction: #Rectal and lower abdominal pain Continue NS 75 cc/h Bowel rest/n.p.o. NG tube ordered Patient had large bowel movement today (09/01) after taking combination of milk of magnesia, prune juice, and molasses. General Surgery on consult, appreciate further recommendations #Hypokalemia: Improved Continue to monitor BMP Continue to replete potassium Chronic: #Hypertension: Continue home medications Continue to monitor #Mood disorder: Continue home medications F: NS 75 cc/h E: None N: N.p.o. A: Normally ambulates unassisted at home DVT ppx: Lovenox SQ 40 daily GI ppx: Protonix 40 mg IV daily Dispo: Pending conical course Roger Espinosa MD PGY-1 FM Objective - Vital Signs Vital signs: Vital Signs Temp 98.1 F 09/01/24 14:44 Pulse 86 09/01/24 14:44 Resp 18 09/01/24 14:44 BP 138/84 09/01/24 14:44 Pulse Ox 99 09/01/24 14:44 FiO2 Intake & Output 08/31/24 09/01/24 09/01/24 18:59 06:59 18:59 Weight 63.503 kg Other: Voiding Method Toilet # Voids 8 1 # Bowel Movements 2 3 - Labs CBC & Chem 7: 09/01/24 05:55 09/01/24 05:55 Labs: Abnormal Lab Results - Last 24 Hours (Table) 09/01/24 09/01/24 Range/Units 05:55 05:55 Hgb 11.4 L (12.0-15.0) g/dL Hct 37.0 L (37.2-46.3) % MCHC 30.8 L (32.0-37.0) g/dL Carbon Dioxide 21.0 L (21.6-31.8) mmol/L BUN 8.6 L (9.0-27.0) mg/dL Glucose 63 L (70-110) mg/dL Calcium 8.0 L (8.7-10.3) mg/dL Microbiology - Last 24 Hours (Table) 08/30/24 21:34 Urine Culture - Final Urine,Voided
--- NOTE | 2024-09-01 15:27 | P.PN ---
Subjective Progress Note Date: 09/01/24 SURGICAL PROGRESS NOTE CHIEF COMPLAINT: Constipation HISTORY OF PRESENT ILLNESS: Patient did have a small bowel. She did have small streaks of blood in the stool. She is having flatus. Did report some nausea. No vomiting. Afebrile. Mildly tachycardic now improved. Patient does report feeling anxious. WBC is 5.66 Hgb 11.4 platelets 152 sodium is 142 potassium 4.3 creatinine 0.6 PHYSICAL EXAM: VITAL SIGNS: Reviewed. GENERAL: Well-developed in no acute distress. ABDOMEN: Soft. Distended. Mild diffuse tenderness NEUROLOGIC: Alert and oriented. Cranial nerves II through XII grossly intact. ASSESSMENT: 1. Constipation PLAN: -GoLytely bowel prep ordered for bowel cleansing -Continue lactulose and continue to collect suppository -Keep patient n.p.o. for now -Encourage patient to ambulate Physician [employer] note has been reviewed by physician. Signing provider agrees with the documented findings, assessment, and plan of care. Attestation Patient seen and examined at bedside. Patient did have 2 bowel movements, however they were small. Bowel regimen of lactulose does not appear to be completely successful. Secondary to this, we will attempt a bowel prep to initiate further bowel function. The patient does admit to chronic constipation and states she has a bowel movement every 10 days. Continue n.p.o. status for now. Becky Otoole DO Objective - Vital Signs Vital signs: Vital Signs Temp 98.1 F 09/01/24 14:44 Pulse 86 09/01/24 14:44 Resp 18 09/01/24 14:44 BP 138/84 09/01/24 14:44 Pulse Ox 99 09/01/24 14:44 FiO2 Intake & Output 08/31/24 09/01/24 09/01/24 18:59 06:59 18:59 Weight 63.503 kg Other: Voiding Method Toilet # Voids 8 1 # Bowel Movements 2 3 - Labs CBC & Chem 7: 09/01/24 05:55 09/01/24 05:55 Labs: Abnormal Lab Results - Last 24 Hours (Table) 09/01/24 09/01/24 Range/Units 05:55 05:55 Hgb 11.4 L (12.0-15.0) g/dL Hct 37.0 L (37.2-46.3) % MCHC 30.8 L (32.0-37.0) g/dL Carbon Dioxide 21.0 L (21.6-31.8) mmol/L BUN 8.6 L (9.0-27.0) mg/dL Glucose 63 L (70-110) mg/dL Calcium 8.0 L (8.7-10.3) mg/dL Microbiology - Last 24 Hours (Table) 08/30/24 21:34 Urine Culture - Final Urine,Voided
[2024-09-01] MEDS: ALPRAZolam 0.25 MG TAB PO SCH (15:50)
[2024-09-02 10:35] LABS: BUN/Creat Ratio 5.57 Ratio (12.00-20.00); Blood Urea Nitrogen 3.9 mg/dL (9.0-27.0); Calcium 8.5 mg/dL (8.7-10.3); Carbon Dioxide 25.3 mmol/L (21.6-31.8); Chloride 107 mmol/L (96-109); Glucose 66 mg/dL (70-110); Sodium 143 mmol/L (135-145)
--- NOTE | 2024-09-02 13:55 | P.PN ---
Subjective Progress Note Date: 09/02/24 SURGICAL PROGRESS NOTE CHIEF COMPLAINT: Constipation HISTORY OF PRESENT ILLNESS: Patient did drink some of the GoLytely. She has had 4 bowel movements through the night. Patient's abdomen is softer. She does still report abdominal pain. The pain has improved since admission. No nausea or vomiting. Patient did not like the GoLytely. Patient reports walking in the hallway. Afebrile. WBC 5.66 PHYSICAL EXAM: VITAL SIGNS: Reviewed. GENERAL: Well-developed in no acute distress. ABDOMEN: Abdomen softer. Less distended. Minimal diffuse tenderness with palpation NEUROLOGIC: Alert and oriented. Cranial nerves II through XII grossly intact. ASSESSMENT: 1. Constipation PLAN: -Advance diet to clear liquids -Continue Dulcolax suppositories and lactulose -Encouraged patient to ambulate Physician [employer] Work[employer] note has been reviewed by physician. Signing provider agrees with the documented findings, assessment, and plan of care. Objective - Vital Signs Vital signs: Vital Signs Temp 98.2 F 09/02/24 11:58 Pulse 77 09/02/24 11:58 Resp 16 09/02/24 11:58 BP 130/82 09/02/24 11:58 Pulse Ox 97 09/02/24 11:58 FiO2 Intake & Output 09/01/24 09/02/24 09/02/24 18:59 06:59 18:59 Intake Total 900 Balance 900 Weight 63.503 kg Intake: Intake, IV Titration 900 Amount Sodium Chloride 0.9% 1, 900 000 ml @ 75 mls/hr IV . [id number] JANET Rx#:[id number] Other: # Voids 3 # Bowel Movements 2 2 3 - Labs CBC & Chem 7: 09/01/24 05:55 09/03/24 03:05 Labs: Abnormal Lab Results - Last 24 Hours (Table) 09/02/24 Range/Units 06:43 BUN 3.9 L (9.0-27.0) mg/dL BUN/Creatinine Ratio 5.57 L (12.00-20.00) Ratio Glucose 66 L (70-110) mg/dL Calcium 8.5 L (8.7-10.3) mg/dL Microbiology - Last 24 Hours (Table) 08/30/24 21:34 Urine Culture - Final Urine,Voided Assessment and Plan Assessment: 59 yo female w/ constipation -continue aggressive bowel regimen along with dulcolax suppositories -encourage ambulation Time with Patient: Less than 30
[2024-09-02 14:04] LABS: Glucose,Whole Blood 118 mg/dL (70-110)
--- NOTE | 2024-09-02 15:32 | P.PN ---
Subjective Progress Note Date: 09/02/24 59-year-old female with a past medical history of hypertension presents to the ED with complaints of constipation. Patient reports she has been seen recently in the ED for rectal pain and characterizes the pain as a throbbing sensation. Patient reports her last bowel movement was 3 days ago and was small in nature. Patient reports the symptoms have been going on for quite some time but is not able to describe exactly how long. Patient reports yesterday that her symptoms were making her extremely anxious so she decided to be seen in the ER. Of note patient was evaluated for psych for a complaint similar to this during her last visit. Initial lab work from the ER was significant for WBC 9.6, hemoglobin 12.2, MCV 87.7, sodium 142, potassium 3.4, creatinine 0.76, AST 36, ALT 44, urinalysis sig nificant for large leukocyte esterase, WBC 61, squamous epithelial 31, calcium oxalate crystals many, and hyaline cast 13. Influenza type A and B, RSV, COVID all negative. ER CT ABD: Nonspecific bowel gas pattern, moderate diffuse colonic fecal stasis and her constipation is seen. Cannot exclude partial distal small bowel obstruction, pneumatosis, or trapped air. Subjective: 09/01/2024: Patient seen at bedside. No significant overnight events. Patient continues to complain of significant rectal pain, but insists pain meds make no difference and that the pain is solely from her inability to pass stool. Patient was given a mixture of milk of magnesia, prune juice, and a shot of molasses and was able to have a significant bowel movement but continues to comp nikunj of significant rectal pain. 09/02. Patient seen and examined. Patient is very anxious, when asked about how she is doing she started screaming in pain. Nursing staff have noticed that she gets anxious very easily. Patient states that she has not pooped but according nursing staff she had 4 bowel movements overnight REVIEW OF SYSTEMS: CONSTITUTIONAL: No fever, no malaise,. CARDIOVASCULAR: No chest pain, no palpitations, no syncope. PULMONARY: No shortness of breath, no cough, GASTROINTESTINAL: Complaining of rectal pain NEUROLOGICAL: No headaches, no weakness, PHYSICAL EXAMINATION: GENERAL: The patient is alert. HEENT: Pupils are round and equally reacting to light. EOMI. No scleral icterus. No conjunctival pallor. Normocephalic, atraumatic. No pharyngeal erythema. No thyromegaly. CARDIOVASCULAR: S1 and S2 present. No murmurs, rubs, or gallops. PULMONARY: Chest is clear to auscultation, no wheezing or crackles. ABDOMEN: Soft, nontender, nondistended, normoactive bowel sounds. No palpable organomegaly. MUSCULOSKELETAL: No joint swelling or deformity. EXTREMITIES: No cyanosis, clubbing, or pedal edema. NEUROLOGICAL: Gross neurological examination did not reveal any focal deficits. SKIN: No rashes. Assessment and plan Acute: #Constipation fecal stasis partial distal small bowel obstruction: #Rectal and lower abdominal pain Continue NS 75 cc/h Continue aggressive bowel regimen Diet advanced to full liquid General Surgery following #Hypokalemia: Monitor BMP Chronic: #Hypertension: Continue home medications Continue to monitor #Mood disorder: Continue home medications Labs and medication were reviewed.. Continue same treatment. Continue with symptomatic treatment. Resume home medication. Monitor labs and vitals. DVT and GI prophylaxis. Further recommendations as per clinical course of the patient Dictation was produced using [employer] dictation software. please excuse any grammatical, word or spelling errors. Objective - Vital Signs Vital signs: Vital Signs Temp 98.2 F 09/02/24 11:58 Pulse 77 09/02/24 11:58 Resp 16 09/02/24 11:58 BP 130/82 09/02/24 11:58 Pulse Ox 97 09/02/24 11:58 FiO2 Intake & Output 09/01/24 09/02/24 09/02/24 18:59 06:59 18:59 Intake Total 900 Balance 900 Weight 63.503 kg Intake: Intake, IV Titration 900 Amount Sodium Chloride 0.9% 1, 900 000 ml @ 75 mls/hr IV . [id number] JANET Rx#:[id number] Other: # Voids 3 # Bowel Movements 2 2 3 - Labs CBC & Chem 7: 09/01/24 05:55 09/02/24 06:43 Labs: Abnormal Lab Results - Last 24 Hours (Table) 09/02/24 09/02/24 Range/Units 06:43 14:02 BUN 3.9 L (9.0-27.0) mg/dL BUN/Creatinine Ratio 5.57 L (12.00-20.00) Ratio Glucose 66 L (70-110) mg/dL POC Glucose (mg/dL) 118 H (70-110) mg/dL Calcium 8.5 L (8.7-10.3) mg/dL
[2024-09-03 09:21] LABS: ALT 53 U/L (8-44); AST 45 U/L (13-35); Albumin 3.5 g/dL (3.8-4.9); Albumin/Globulin Ratio 1.84 Ratio (1.60-3.17); Alkaline Phosphatase 71 U/L (41-126); BUN/Creat Ratio <5.00 Ratio (12.00-20.00); Blood Urea Nitrogen <3.5 mg/dL (9.0-27.0); Calcium 8.6 mg/dL (8.7-10.3); Chloride 105 mmol/L (96-109); Globulin 1.9 g/dL (1.6-3.3); Glucose 77 mg/dL (70-110); Potassium 3.5 mmol/L (3.5-5.5); Sodium 142 mmol/L (135-145); Total Bilirubin 0.3 mg/dL (0.3-1.2); Total Protein 5.4 g/dL (6.2-8.2)
--- NOTE | 2024-09-03 11:08 | P.PN ---
Progress Note - Text Progress Note Date: 09/03/24 CHIEF COMPLAINT: Constipation HISTORY OF PRESENT ILLNESS: No acute events overnight. Patient is having bowel movements. PHYSICAL EXAM: VITAL SIGNS: Reviewed. GENERAL: Well-developed in no acute distress. ABDOMEN: Abdomen softer. Less distended. Minimal diffuse tenderness with palpation NEUROLOGIC: Alert and oriented. Cranial nerves II through XII grossly intact. ASSESSMENT: 1. Constipation PLAN: -Advance diet to Full Liquid Diet -Continue Dulcolax suppositories and lactulose -Encouraged patient to ambulate [facility] [phone]
--- NOTE | 2024-09-03 13:54 | P.PN ---
Subjective Progress Note Date: 09/03/24 59-year-old female with a past medical history of hypertension presents to the ED with complaints of constipation. Patient reports she has been seen recently in the ED for rectal pain and characterizes the pain as a throbbing sensation. Patient reports her last bowel movement was 3 days ago and was small in nature. Patient reports the symptoms have been going on for quite some time but is not able to describe exactly how long. Patient reports yesterday that her symptoms were making her extremely anxious so she decided to be seen in the ER. Of note patient was evaluated for psych for a complaint similar to this during her last visit. Initial lab work from the ER was significant for WBC 9.6, hemoglobin 12.2, MCV 87.7, sodium 142, potassium 3.4, creatinine 0.76, AST 36, ALT 44, urinalysis sig nificant for large leukocyte esterase, WBC 61, squamous epithelial 31, calcium oxalate crystals many, and hyaline cast 13. Influenza type A and B, RSV, COVID all negative. ER CT ABD: Nonspecific bowel gas pattern, moderate diffuse colonic fecal stasis and her constipation is seen. Cannot exclude partial distal small bowel obstruction, pneumatosis, or trapped air. Subjective: 09/01/2024: Patient seen at bedside. No significant overnight events. Patient continues to complain of significant rectal pain, but insists pain meds make no difference and that the pain is solely from her inability to pass stool. Patient was given a mixture of milk of magnesia, prune juice, and a shot of molasses and was able to have a significant bowel movement but continues to comp nikunj of significant rectal pain. 09/02. Patient seen and examined. Patient is very anxious, when asked about how she is doing she started screaming in pain. Nursing staff have noticed that she gets anxious very easily. Patient states that she has not pooped but according nursing staff she had 4 bowel movements overnight 09/03. Patient seen and examined. Still complaining of rectal pain but to lerating clear liquid diet, diet was advanced to full liquid.. Does not look in any pain on exam REVIEW OF SYSTEMS: CONSTITUTIONAL: No fever, no malaise,. CARDIOVASCULAR: No chest pain, no palpitations, no syncope. PULMONARY: No shortness of breath, no cough, GASTROINTESTINAL: Complaining of rectal pain NEUROLOGICAL: No headaches, no weakness, PHYSICAL EXAMINATION: GENERAL: The patient is alert. HEENT: Pupils are round and equally reacting to light. EOMI. No scleral icterus. No conjunctival pallor. Normocephalic, atraumatic. No pharyngeal erythema. No thyromegaly. CARDIOVASCULAR: S1 and S2 present. No murmurs, rubs, or gallops. PULMONARY: Chest is clear to auscultation, no wheezing or crackles. ABDOMEN: Soft, nontender, nondistended, normoactive bowel sounds. No palpable organomegaly. MUSCULOSKELETAL: No joint swelling or deformity. EXTREMITIES: No cyanosis, clubbing, or pedal edema. NEUROLOGICAL: Gross neurological examination did not reveal any focal deficits. SKIN: No rashes. Assessment and plan Acute: #Constipation fecal stasis partial distal small bowel obstruction: #Rectal and lower abdominal pain Continue NS 75 cc/h Continue aggressive bowel regimen Diet advanced to full liquid General Surgery following #Hypokalemia: Monitor BMP Chronic: #Hypertension: Continue home medications Continue to monitor #Mood disorder: Continue home medications Labs and medication were reviewed.. Continue same treatment. Continue with symptomatic treatment. Resume home medication. Monitor labs and vitals. DVT and GI prophylaxis. Further recommendations as per clinical course of the patient Dictation was produced using [employer] dictation software. please excuse any grammatical, word or spelling errors. Objective - Vital Signs Vital signs: Vital Signs Temp 97.8 F 09/03/24 12:44 Pulse 80 09/03/24 12:44 Resp 18 09/03/24 12:44 BP 148/98 09/03/24 12:44 Pulse Ox 97 09/03/24 12:44 FiO2 Intake & Output 09/02/24 09/03/24 09/03/24 18:59 06:59 18:59 Intake Total 1610 Balance 1610 Intake: Intake, IV Titration 900 Amount Sodium Chloride 0.9% 1, 900 000 ml @ 75 mls/hr IV . [id number] [facility] Rx#:[id number] Oral 710 Other: Voiding Method Toilet # Voids 4 1 1 # Bowel Movements 3 1 2 - Labs CBC & Chem 7: 09/01/24 05:55 09/03/24 03:05 Labs: Abnormal Lab Results - Last 24 Hours (Table) 09/02/24 09/03/24 Range/Units 14:02 03:05 Anion Gap 13.00 H (4.00-12.00) mmol/L BUN <3.5 L (9.0-27.0) mg/dL BUN/Creatinine Ratio <5.00 L (12.00-20.00) Ratio POC Glucose (mg/dL) 118 H (70-110) mg/dL Calcium 8.6 L (8.7-10.3) mg/dL AST 45 H (13-35) U/L ALT 53 H (8-44) U/L Total Protein 5.4 L (6.2-8.2) g/dL Albumin 3.5 L (3.8-4.9) g/dL
--- NOTE | 2024-09-04 11:06 | P.PN ---
Progress Note - Text Progress Note Date: 09/04/24 HISTORY OF PRESENT ILLNESS: No acute events overnight. Patient is having bowel movements. PHYSICAL EXAM: VITAL SIGNS: Reviewed. GENERAL: Well-developed in no acute distress. ABDOMEN: Abdomen softer. Less distended. Minimal diffuse tenderness with palpation NEUROLOGIC: Alert and oriented. Cranial nerves II through XII grossly intact. ASSESSMENT: 1. Constipation PLAN: -Advance diet to Full Liquid Diet -Continue Dulcolax suppositories and lactulose -Encouraged patient to ambulate [facility] [phone]
--- NOTE | 2024-09-04 13:33 | P.PN ---
Subjective Progress Note Date: 09/04/24 59-year-old female with a past medical history of hypertension presents to the ED with complaints of constipation. Patient reports she has been seen recently in the ED for rectal pain and characterizes the pain as a throbbing sensation. Patient reports her last bowel movement was 3 days ago and was small in nature. Patient reports the symptoms have been going on for quite some time but is not able to describe exactly how long. Patient reports yesterday that her symptoms were making her extremely anxious so she decided to be seen in the ER. Of note patient was evaluated for psych for a complaint similar to this during her last visit. Initial lab work from the ER was significant for WBC 9.6, hemoglobin 12.2, MCV 87.7, sodium 142, potassium 3.4, creatinine 0.76, AST 36, ALT 44, urinalysis sig nificant for large leukocyte esterase, WBC 61, squamous epithelial 31, calcium oxalate crystals many, and hyaline cast 13. Influenza type A and B, RSV, COVID all negative. ER CT ABD: Nonspecific bowel gas pattern, moderate diffuse colonic fecal stasis and her constipation is seen. Cannot exclude partial distal small bowel obstruction, pneumatosis, or trapped air. Subjective: 09/01/2024: Patient seen at bedside. No significant overnight events. Patient continues to complain of significant rectal pain, but insists pain meds make no difference and that the pain is solely from her inability to pass stool. Patient was given a mixture of milk of magnesia, prune juice, and a shot of molasses and was able to have a significant bowel movement but continues to comp nikunj of significant rectal pain. 09/02. Patient seen and examined. Patient is very anxious, when asked about how she is doing she started screaming in pain. Nursing staff have noticed that she gets anxious very easily. Patient states that she has not pooped but according nursing staff she had 4 bowel movements overnight 09/03. Patient seen and examined. Still complaining of rectal pain but to lerating clear liquid diet, diet was advanced to full liquid.. Does not look in any pain on exam 09/04. Patient seen and examined. No acute issues overnight. Vital signs stable REVIEW OF SYSTEMS: CONSTITUTIONAL: No fever, no malaise,. CARDIOVASCULAR: No chest pain, no palpitations, no syncope. PULMONARY: No shortness of breath, no cough, GASTROINTESTINAL: Complaining of rectal pain NEUROLOGICAL: No headaches, no weakness, PHYSICAL EXAMINATION: GENERAL: The patient is alert. HEENT: Pupils are round and equally reacting to light. EOMI. No scleral icterus. No conjunctival pallor. Normocephalic, atraumatic. No pharyngeal erythema. No thyromegaly. CARDIOVASCULAR: S1 and S2 present. No murmurs, rubs, or gallops. PULMONARY: Chest is clear to auscultation, no wheezing or crackles. ABDOMEN: Soft, nontender, nondistended, normoactive bowel sounds. No palpable organomegaly. MUSCULOSKELETAL: No joint swelling or deformity. EXTREMITIES: No cyanosis, clubbing, or pedal edema. NEUROLOGICAL: Gross neurological examination did not reveal any focal deficits. SKIN: No rashes. Assessment and plan Acute: #Constipation fecal stasis partial distal small bowel obstruction: #Rectal and lower abdominal pain DC fluids Continue aggressive bowel regimen Currently on full liquid diet, advance diet per surgery General Surgery following #Hypokalemia: Monitor BMP Chronic: #Hypertension: Continue home medications Continue to monitor #Mood disorder: Continue home medications Labs and medication were reviewed.. Continue same treatment. Continue with symptomatic treatment. Resume home medication. Monitor labs and vitals. DVT and GI prophylaxis. Further recommendations as per clinical course of the patient Dictation was produced using [employer] dictation software. please excuse any grammatical, word or spelling errors. Objective - Vital Signs Vital signs: Vital Signs Temp 97.4 F L 09/04/24 07:14 Pulse 85 09/04/24 07:14 Resp 16 09/04/24 07:14 BP 123/79 09/04/24 07:14 Pulse Ox 98 09/04/24 07:14 FiO2 Intake & Output 09/03/24 09/04/24 09/04/24 19:59 06:59 18:59 Intake Total Balance Intake: Intake, IV Titration Amount Sodium Chloride 0.9% 1, 000 ml @ 75 mls/hr IV . [id number] [facility] Rx#:[id number] Oral Other: Voiding Method # Voids 1 # Bowel Movements 1 - Labs CBC & Chem 7: 09/01/24 05:55 09/03/24 03:05
--- NOTE | 2024-09-05 11:19 | P.PN ---
Subjective Progress Note Date: 09/05/24 SURGICAL PROGRESS NOTE CHIEF COMPLAINT: Constipation HISTORY OF PRESENT ILLNESS: Patient has been having bowel movements. She is having flatus. Denies any nausea or vomiting. She does complain of pain in the rectum which is a chronic complaint. Patient did not eat the full liquids. It patient reporting that it is too sweet and she is sick of liquid diet. She has been up and ambulating. She is afebrile. PHYSICAL EXAM: VITAL SIGNS: Reviewed. GENERAL: Well-developed in no acute distress. ABDOMEN: Soft nontender nondistended NEUROLOGIC: Alert and oriented. Cranial nerves II through XII grossly intact. ASSESSMENT: 1. Constipation PLAN: -Advance diet to regular -Continue Dulcolax suppositories and lactulose -Encouraged patient to ambulate Physician Online Marketer note has been reviewed by physician. Signing provider agrees with the documented findings, assessment, and plan of care. Objective - Vital Signs Vital signs: Vital Signs Temp 98.2 F 09/05/24 07:10 Pulse 89 09/05/24 07:10 Resp 17 09/05/24 07:10 BP 125/78 09/05/24 07:10 Pulse Ox 96 09/05/24 07:10 FiO2 Intake & Output 09/04/24 09/05/24 09/05/24 18:59 06:59 18:59 Intake Total 600 990 Output Total 2300 Balance 600 -1310 Intake: Intake, IV Titration 600 Amount Sodium Chloride 0.9% 1, 600 000 ml @ 75 mls/hr IV . [id number] [facility] Rx#:[id number] Oral 990 Output: Urine 2300 Other: Voiding Method Toilet # Voids 1 # Bowel Movements 1 - Labs CBC & Chem 7: 09/01/24 05:55 09/03/24 03:05
[2024-09-05] MEDS: BACLOFEN 10 MG TAB PO PRN (15:35)
--- NOTE | 2024-09-06 05:32 | P.PN ---
Subjective Progress Note Date: 09/05/24 59-year-old female with a past medical history of hypertension presents to the ED with complaints of constipation. Patient reports she has been seen recently in the ED for rectal pain and characterizes the pain as a throbbing sensation. Patient reports her last bowel movement was 3 days ago and was small in nature. Patient reports the symptoms have been going on for quite some time but is not able to describe exactly how long. Patient reports yesterday that her symptoms were making her extremely anxious so she decided to be seen in the ER. Of note patient was evaluated for psych for a complaint similar to this during her last visit. Initial lab work from the ER was significant for WBC 9.6, hemoglobin 12.2, MCV 87.7, sodium 142, potassium 3.4, creatinine 0.76, AST 36, ALT 44, urinalysis significant for large leukocyte esterase, WBC 61, squamous epithelial 31, calcium oxalate crystals many, and hyaline cast 13. Influenza type A and B, RSV, COVID all negative. ER CT ABD: Nonspecific bowel gas pattern, moderate diffuse colonic fecal stasis and her constipation is seen. Cannot exclude partial distal small bowel obstruction, pneumatosis, or trapped air. Subjective: 09/01/2024: Patient seen at bedside. No significant overnight events. Patient continues to complain of significant rectal pain, but insists pain meds make no difference and that the pain is solely from her inability to pass stool. Patient was given a mixture of milk of magnesia, prune juice, and a shot of molasses and was able to have a significant bowel movement but continues to c omplain of significant rectal pain. 09/02. Patient seen and examined. Patient is very anxious, when asked about how she is doing she started screaming in pain. Nursing staff have noticed that she gets anxious very easily. Patient states that she has not pooped but according nursing staff she had 4 bowel movements overnight 09/03. Patient seen and examined. Still complaining of rectal pain but tolerating clear liquid diet, diet was advanced to full liquid.. Does not look in any pain on exam 09/04. Patient seen and examined. No acute issues overnight. Vital signs stable 09/05/2024 Patient is seen in follow-up with general surgery following continuing to be anxious maintained on clear liquids although reports she cannot tolerate these liquids and they are too sugary. Diet is being advanced per surgery as patient is having bowel movements. Patient continues to elicit significant rectal pain and this is chronic. Will monitor overnight for diet tolerance and likely discharge planning in 24 hours. Encouraged continued walking in the halls frequently. Patient is afebrile with no reports of chest pain or shortness of breath. REVIEW OF SYSTEMS: CONSTITUTIONAL: No fever, no malaise,. CARDIOVASCULAR: No chest pain, no palpitations, no syncope. PULMONARY: No shortness of breath, no cough, GASTROINTESTINAL: Complaining of continued rectal pain NEUROLOGICAL: No headaches, no weakness PHYSICAL EXAMINATION: GENERAL: The patient is alert. Well-developed, elderly appearing, thin built, extremely anxious HEENT: Pupils are round and equally reacting to light. EOMI. No scleral icterus. No conjunctival pallor. Normocephalic, atraumatic. No pharyngeal erythema. No thyromegaly. CARDIOVASCULAR: S1 and S2 present. No murmurs, rubs, or gallops. PULMONARY: Chest is clear to auscultation, no wheezing or crackles. ABDOMEN: Soft, nontender, nondistended, normoactive bowel sounds. No palpable organomegaly. MUSCULOSKELETAL: No joint swelling or deformity. EXTREMITIES: No cyanosis, clubbing, or pedal edema. NEUROLOGICAL: Gross neurological examination did not reveal any focal deficits. SKIN: No rashes. Assessment: -Constipation, chronic -fecal stasis -partial distal small bowel obstruction, improved -Rectal and lower abdominal pain secondary to chronic constipation -Hypokalemia, improved -History of hypertension -History of mood disorder -GI prophylaxis -DVT prophylaxis -Full code Plan: Continue current bowel regimen and diet was continued on clear liquids although patient reports she cannot tolerate all the sugary foods and is being advanced per surgery Patient is having bowel movements although continues to report rectal pain Encouraged continued walking frequently Patient will be returning to [facility] where she resides and possible discharge planning in the next 24 hours. Will discuss with general surgery The impression and plan of care has been dictated by Brigid Salcedo, Nurse Practitioner as directed. Dr. Khushbu MD I have performed a history and examination and MDM of this patient, discussed the same with the dictator, and agree with the dictator's assessment and plan as written ,documented as a scribe. Based on total visit time, I have performed more than 50% of the visit. Objective - Vital Signs Vital signs: Vital Signs Temp 98.2 F 09/05/24 07:10 Pulse 89 09/05/24 07:10 Resp 17 09/05/24 07:10 BP 125/78 09/05/24 07:10 Pulse Ox 96 09/05/24 07:10 FiO2 Intake & Output 09/04/24 09/05/24 09/05/24 18:59 06:59 18:59 Intake Total 600 990 Output Total 2300 Balance 600 -1310 Intake: Intake, IV Titration 600 Amount Sodium Chloride 0.9% 1, 600 000 ml @ 75 mls/hr IV . [id number] [facility] Rx#:[id number] Oral 990 Output: Urine 2300 Other: Voiding Method Toilet # Voids 1 # Bowel Movements 1 - Labs CBC & Chem 7: 09/01/24 05:55 09/03/24 03:05
[2024-09-06 07:52] VITALS: RESP 16
[2024-09-06 12:26] VITALS: BP 133/84; PULSE 77; TEMP 97.7
--- NOTE | 2024-09-06 13:35 | P.DS ---
Providers Date of admission: 08/31/24 08:12 Expected date of discharge: 09/06/24 Attending physician: Lauren Ríos Consults: 08/31/24 03:46 Consult Physician Urgent Consulting Provider: Edgardo Briscoe Consult Reason/Comments: Rule out small bowel obstruction, pneumatosis Do you want consulting provider notified?: Yes, Notify in am Primary care physician: Tabitha Hernandez Hospital Course: Final diagnosis -Constipation, chronic -fecal stasis -partial distal small bowel obstruction, improved -Rectal and lower abdominal pain secondary to chronic constipation -Hypokalemia, improved -History of hypertension -History of mood disorder -GI prophylaxis -DVT prophylaxis -Full code Discharge disposition Patient is being discharged in a stable condition with guarded prognosis to [facility] home where she resides. Patient will follow-up with Dr. David Berrios in the outpatient setting upon discharge. Patient is to continue with current scheduled bowel regimen as well as as needed and outpatient follow-up with general surgery as scheduled. Total time taken is greater than 35 minutes. Hospital course This is a 59-year-old female who was recently admitted with fecal stasis with concerns of partial distal small bowel obstruction and rectal pain being closely monitored. Patient evaluated by general surgery with chronic constipation being maintained on an aggressive bowel regimen recommend to continue with scheduled bowel regimen as well as as needed and outpatient follow-up with general surgery for colonoscopy outpatient. Patient has been cleared and is tolerating diet and having bowel movements. Patient to follow-up with primary care provider on discharge. Please refer to other consultation notes for further HPI. Currently no reports of chest pain, shortness of breath, or palpitations. Patient is afebrile. No reports of nausea or vomiting and patient is tolerating diet. Patient will be discharged to [facility] where she resides today. Guarded prognosis. Physical exam: Gen: This is a 59-year-old female who is awake, alert and oriented x 3, extremely anxious, thin build, appears older than stated age HEENT: Head is atraumatic, normocephalic. Pupils equal, round. Sclerae is anicteric. NECK: Supple. No JVD. No lymphadenopathy. No thyromegaly. LUNGS: Clear to auscultation. No wheezes or rhonchi. No intercostal retractions. HEART: Regular rate and rhythm. No murmur. ABDOMEN: Soft. Thin. Bowel sounds are present. No masses. No tenderness. EXTREMITIES: No pedal edema. No calf tenderness. NEUROLOGICAL: Patient is awake, alert and oriented x3. Cranial nerves 2 through 12 are grossly intact. Please refer to medication reconciliation sheet for a list of medications. The impression and plan of care has been dictated by Brigid Salcedo, Nurse Practitioner as directed. Dr. Khushbu MD I have performed a history and examination and MDM of this patient, discussed the same with the dictator, and agree with the dictator's assessment and plan as written ,documented as a scribe. Based on total visit time, I have performed more than 50% of the visit. Patient Condition at Discharge: Fair Plan - Discharge Summary Discharge Rx Participant: No New Discharge Prescriptions: New bisacodyL [Dulcolax] 10 mg RECTAL BID #60 suppositor Magnesium Hydroxide [Milk of Magnesia] 2,400 mg PO ONCE PRN ml PRN Reason: Constipation Acetaminophen Tab [Tylenol] 650 mg PO Q6HR PRN tab PRN Reason: Fever And/ Or Pain Baclofen 5 mg PO BID PRN #30 tablet PRN Reason: Spasms Lactulose [Cephulac] 30 gm PO BID #360 ml Continue Mirtazapine 30 mg PO HS Benztropine Mesylate [Cogentin] 0.5 mg PO BID@0800,2100 Venlafaxine HCl ER [Effexor XR] 150 mg PO DAILY@0800 Propranolol [Inderal] 20 mg PO BID@0800,2100 hydrOXYzine pamoate [Vistaril] 25 mg PO BID@0800,2100 diazePAM [Valium] 10 mg PO BID@0900,1600 cloZAPine [Clozaril] 200 mg PO BID@0800,2100 Psyllium Husk (with Sugar) [Metamucil Powder] 2 tsp PO DAILY@0800 Pantoprazole Sodium [Protonix] 40 mg PO AC-BRKFST Discontinued Sennosides [Senokot] 8.6 mg PO BID@0800,2100 Lactulose [Cephulac] 20 gm PO BID@0800,1600 Baclofen 20 mg PO HS Docusate [Colace] 100 mg PO BID@0800,2100 Baclofen [Lioresal] 10 mg PO DAILY@0800 Discharge Medication List Benztropine Mesylate [Cogentin] 0.5 mg PO BID@0800,209908/10/24 [History] Mirtazapine 30 mg PO HS 08/10/24 [History] Propranolol [Inderal] 20 mg PO BID@0800,209908/10/24 [History] Psyllium Husk (with Sugar) [Metamucil Powder] 2 tsp PO DAILY@0800 08/10/24 [History] Venlafaxine HCl ER [Effexor XR] 150 mg PO DAILY@0800 08/10/24 [History] cloZAPine [Clozaril] 200 mg PO BID@0800,209908/10/24 [History] diazePAM [Valium] 10 mg PO BID@0900,1600 08/10/24 [History] hydrOXYzine pamoate [Vistaril] 25 mg PO BID@0800,209908/10/24 [History] Pantoprazole Sodium [Protonix] 40 mg PO AC-BRKFST 08/31/24 [History] Acetaminophen Tab [Tylenol] 650 mg PO Q6HR PRN tab 09/06/24 [Rx] Baclofen 5 mg PO BID PRN #30 tablet 09/06/24 [Rx] Lactulose [Cephulac] 30 gm PO BID #360 ml 09/06/24 [Rx] Magnesium Hydroxide [Milk of Magnesia] 2,400 mg PO ONCE PRN ml 09/06/24 [Rx] bisacodyL [Dulcolax] 10 mg RECTAL BID #60 suppositor 09/06/24 [Rx] Follow up Appointment(s)/Referral(s): Domenic Zaragoza DO [Doctor of Osteopathic Medicine] - 09/20/24 9:15 am (the office will mail new patient paperwork that will need to be completed and brought to appointment. please bring picture id, insurance cards and medication list to appointment also. ) Tabitha Hernandez MD [Primary Care Provider] - 1-2 days (please call to schedule a follow up appointment) Patient Instructions/Handouts: Baclofen (By mouth), Lactulose (By mouth), Laxatives, Stimulant (Into the rectum) Activity/Diet/Wound Care/Special Instructions: Activity limited until follow-up Follow-up primary care provider on discharge Continue bowel regimen as scheduled and as needed Follow-up surgery outpatient Discharge Disposition: HOME SELF-CARE
--- NOTE | 2024-09-06 14:16 | P.PN ---
Subjective Progress Note Date: 09/06/24 SURGICAL PROGRESS NOTE CHIEF COMPLAINT: Constipation HISTORY OF PRESENT ILLNESS: Patient having bowel movements. She is tolerating regular diet. Denies any nausea or vomiting. She does complain of pain in the rectum which is a chronic complaint. Afebrile. She has been up and ambulating PHYSICAL EXAM: VITAL SIGNS: Reviewed. GENERAL: Well-developed in no acute distress. ABDOMEN: Soft nontender nondistended NEUROLOGIC: Alert and oriented. Cranial nerves II through XII grossly intact. ASSESSMENT: 1. Constipation PLAN: -Patient can be discharged from surgical standpoint -Recommend outpatient follow-up for flex sigmoidoscopy -Continue a good bowel regimen at home Physician Orthopedic Tech note has been reviewed by physician. Signing provider agrees with the documented findings, assessment, and plan of care. Objective - Vital Signs Vital signs: Vital Signs Temp 97.7 F 09/06/24 12:26 Pulse 77 09/06/24 12:26 Resp 16 09/06/24 12:26 BP 133/84 09/06/24 12:26 Pulse Ox 97 09/06/24 12:26 FiO2 Intake & Output 09/05/24 09/06/24 09/06/24 18:59 06:59 18:59 Intake Total 120 898 Balance 120 898 Weight 63.503 kg Intake: Oral 120 898 Other: Voiding Method Toilet # Voids 1 4 # Bowel Movements 1 2 - Labs CBC & Chem 7: 09/01/24 05:55 09/03/24 03:05
== END 2024-09-06 13:40 | disposition home health service (06) | DRG 389 ==
LOC: EC 21:03 → 5NMEDONC 08-31 03:48 → OBSVTOIN 08-31 08:12
PROVIDERS: ADMIT Internal Medicine; ATTEND Internal Medicine
PROC: 05HY33Z Insertion of Infusion Device into Upper Vein, Percutaneous Approach (ICD-10-PCS; principal; 2024-09-01 08:15)
DX: K56.690 Other partial intestinal obstruction (principal); N39.0 Urinary tract infection, site not specified; K59.09 Other constipation; F25.9 Schizoaffective disorder, unspecified; I10 Essential (primary) hypertension; K59.89 Other specified functional intestinal disorders; F39 Unspecified mood [affective] disorder; E87.6 Hypokalemia; K62.89 Other specified diseases of anus and rectum; K63.89 Other specified diseases of intestine; Z79.899 Other long term (current) drug therapy; Z11.52 Encounter for screening for COVID-19
CPT/HCPCS: 36410; 36415; 74177; 76937; 80048; 80053; 81001; 83605; 85025; 86140; 87086; 87636; 93005; 96361; 96374; 99285

== ENCOUNTER 2024-09-07 10:35 | Emergency (ER) | payer MEDICARE, OTHER ==
[2024-09-07 10:42] VITALS: RESP 18
--- NOTE | 2024-09-07 11:25 | XR ---
EXAMINATION TYPE: XR KUB DATE OF EXAM: 09/07/2024 COMPARISON: NONE CLINICAL INDICATION: Female, 59 years old with history of constipation; TECHNIQUE: XR KUB views of the abdomen. FINDINGS: The osseous structures are intact. The bowel gas pattern is nonspecific. Retained fecal debris throu ghout the colon. Hypertrophic arthropathy of the hips. Generalized osteopenia. Prominent small bowel loop in the upper abdomen. IMPRESSION: 1. Findings are compatible with constipation which may be resulting in a ileus or partial obstructive pattern with a dilated small bowel loop in the upper abdomen.. [facility], , 09/07/2024 11:23 AM
[2024-09-07] MEDS: MAGNESIUM CITRATE 296 ML BOTTLE PO ONE (12:04)
--- NOTE | 2024-09-07 12:07 | ED ---
General Adult HPI - General Chief complaint: Abdominal Pain Stated complaint: Rectal pain Time Seen by Provider: 09/07/24 10:44 Source: patient, RN notes reviewed, old records reviewed Limitations: no limitations - History of Present Illness Initial comments: 59-year-old female presenting with chief complaint of constipation. Patient had recent admission for constipation with secondary obstruction. She states she did have a bowel movement today and reports this as liquid. She does have history of schizophrenia and the [facility] worker who is with her states that she has been obsessing over her bowel movements as of late. No fever, no vomiting - Related Data Home Medications Medication Instructions Recorded Confirmed Benztropine Mesylate [Cogentin] 0.5 mg PO BID@0800,2100 08/10/24 08/31/24 Mirtazapine 30 mg PO HS 08/10/24 08/31/24 Propranolol [Inderal] 20 mg PO BID@0800,2100 08/10/24 08/31/24 Psyllium Husk (with Sugar) 2 tsp PO DAILY@0800 08/10/24 08/31/24 [Metamucil Powder] Venlafaxine HCl ER [Effexor XR] 150 mg PO DAILY@0800 08/10/24 08/31/24 cloZAPine [Clozaril] 200 mg PO BID@0800,2100 08/10/24 08/31/24 diazePAM [Valium] 10 mg PO BID@0900,1600 08/10/24 08/31/24 hydrOXYzine pamoate [Vistaril] 25 mg PO BID@0800,2100 08/10/24 08/31/24 Pantoprazole Sodium [Protonix] 40 mg PO AC-BRKFST 08/31/24 08/31/24 Previous Rx's Medication Instructions Recorded Acetaminophen Tab [Tylenol] 650 mg PO Q6HR PRN tab 09/06/24 Baclofen 5 mg PO BID PRN #30 tablet 09/06/24 Lactulose [Cephulac] 30 gm PO BID #360 ml 09/06/24 Magnesium Hydroxide [Milk of 2,400 mg PO ONCE PRN ml 09/06/24 Magnesia] bisacodyL [Dulcolax] 10 mg RECTAL BID #60 suppositor 09/06/24 Docusate [Colace] 100 mg PO BID #60 capsule 09/07/24 polyethylene glycoL 3350 [Miralax] 17 gm PO DAILY #527 gm 09/07/24 Allergies Allergy/AdvReac Type Severity Reaction Status Date / Time aripiprazole [From Abilify] AdvReac Mild "PASSES Verified 09/07/24 10:38 OUT" Review of Systems ROS Statement: Those systems with pertinent positive or pertinent negative responses have been documented in the HPI. ROS Other: All systems not noted in ROS Statement are negative. Past Medical History Past Medical History: Hypertension Additional Past Medical History / Comment(s): Demonstrating s/s of tardive dyskinesia AEB lifting legs up and down while standing and facial movements. Bowel obstruction History of Any Multi-Drug Resistant Organisms: None Reported Past Surgical History: Section Additional Past Surgical History / Comment(s): x 2 Past Anesthesia/Blood Transfusion Reactions: No Reported Reaction Past Psychological History: Schizoaffective Disorder Smoking Status: Never smoker Past Alcohol Use History: None Reported Past Drug Use History: None Reported General Exam Limitations: no limitations General appearance: alert, in no apparent distress Head exam: Present: atraumatic, normocephalic Eye exam: Present: normal appearance, PERRL ENT exam: Present: normal exam Neck exam: Present: normal inspection. Absent: tenderness, meningismus Respiratory exam: Present: normal lung sounds bilaterally. Absent: respiratory distress, wheezes Cardiovascular Exam: Present: regular rate, normal rhythm GI/Abdominal exam: Present: soft. Absent: distended, tenderness, guarding Rectal exam: Absent: black stool, bloody stool, fecal impaction Neurological exam: Present: alert. Absent: motor sensory deficit Psychiatric exam: Present: anxious, other Skin exam: Present: warm, dry, intact Course Vital Signs 09/07/24 09/07/24 10:38 12:00 Temperature 97.3 F L 98.5 F Pulse Rate 115 H 85 Respiratory 18 18 Rate Blood Pressure 150/68 121/73 O2 Sat by Pulse 97 97 Oximetry Medical Decision Making - Medical Decision Making Was pt. sent in by a medical professional or institution (, PA, WOOD SETTER, urgent care, hospital, or assisted...) When possible be specific @ -No Did you speak to anyone other than the patient for history (EMS, parent, family, police, friend...)? What history was obtained from this source @ -No Did you review nursing and triage notes (agree or disagree)? Why? @ -I reviewed and agree with nursing and triage notes Were old charts reviewed (outside hosp., previous admission, EMS record, old EKG, old radiological studies, urgent care reports/EKG's, assisted records)? Report findings @ -No old charts were reviewed Differential Diagnosis (chest pain, altered mental status, abdominal pain women, abdominal pain men, vaginal bleeding, weakness, fever, dyspnea, syncope, headache, dizziness, GI bleed, back pain, seizure, CVA, palpatations, mental health, musculoskeletal)? @ -Not applicable EKG interpreted by me (3pts min.). @ -As above X-rays interpreted by me (1pt min.). @ -[X-ray of the abdomen does show a large stool burden within the colon CT interpreted by me (1pt min.). @ -None done U/S interpreted by me (1pt. min.). @ -None done What testing was considered but not performed or refused? (CT, X-rays, U/S, labs)? Why? @ -None What meds were considered but not given or refused? Why? @ -None Did you discuss the management of the patient with other professionals (professionals i.e. , PA, WOOD SETTER, lab, RT, psych nurse, social work program coordinator, thread weaver, teacher, motor equipment commanding officer, case assembler)? Give summary @ -No Was smoking cessation discussed for >3mins.? @ -No Was critical care preformed (if so, how long)? @ -No Were there social determinants of health that impacted care today? How? (Homelessness, low income, unemployed, alcoholism, drug addiction, transportation, low edu. Level, literacy, decrease access to med. care, penitentiary, rehab)? @ -No Was there de-escalation of care discussed even if they declined (Discuss DNR or withdrawal of care, Hospice)? DNR status @ -No What co-morbidities impacted this encounter? (DM, HTN, Smoking, COPD, CAD, Cancer, CVA, ARF, Chemo, Hep., AIDS, mental health diagnosis, sleep apnea, morbid obesity)? @ -Schizophrenia Was patient admitted / discharged? Hospital course, mention meds given and route, prescriptions, significant lab abnormalities, going to OR and other pertinent info. @59-year-old female presents for evaluation of constipation she believes that she has stool in the rectum. She is obsessed with this and has a fixed delusion which has been ongoing for several months. The patient does not have any fecal impaction on exam. X-ray does show constipation. She is given magnesium citrate in the emergency department. She is evaluated by EPS at the request of [facility] and is felt to be stable for discharge at this time. Will be prescribed laxatives. Undiagnosed new problem with uncertain prognosis? @ -No Drug Therapy requiring intensive monitoring for toxicity (Heparin, Nitro, Insulin, Cardizem)? @ -No Were any procedures done? @ -No Diagnosis/symptom? @ -Constipation, schizophrenia Acute, or Chronic, or Acute on Chronic? @ -Chronic Uncomplicated (without systemic symptoms) or Complicated (systemic symptoms)? @ -Default Side effects of treatment? @ -No Exacerbation, Progression, or Severe Exacerbation? @ -No Poses a threat to life or bodily function? How? (Chest pain, [place], [place], pneumonia, PE, COPD, DKA, ARF, appy, cholecystitis, CVA, Diverticulitis, Homicidal, Suicidal, threat to staff... and all critical care pts) @ -No - Lab Data Lab Results 09/07/24 Range/Units 12:22 Urine Opiates Screen Not Detected (NotDetected) Ur Oxycodone Screen Not Detected (NotDetected) Urine Methadone Screen Not Detected (NotDetected) Ur Barbiturates Screen Not Detected (NotDetected) U Tricyclic Antidepress Detected H (NotDetected) Ur Phencyclidine Scrn Not Detected (NotDetected) Ur Amphetamines Screen Not Detected (NotDetected) U Methamphetamines Scrn Not Detected (NotDetected) U Benzodiazepines Scrn Detected H (NotDetected) Urine Cocaine Screen Not Detected (NotDetected) U Marijuana (THC) Screen Not Detected (NotDetected) Disposition Clinical Impression: Constipation, Schizophrenia Disposition: HOME SELF-CARE Condition: Fair Instructions (If sedation given, give patient instructions): Constipation (ED) Prescriptions: Docusate [Colace] 100 mg PO BID #60 capsule polyethylene glycoL 3350 [Miralax] 17 gm PO DAILY #527 gm Is patient prescribed a controlled substance at d/c from ED?: No Referrals: Tabitha Hernandez MD [Primary Care Provider] - 1-2 days Time of Disposition: 13:42
[2024-09-07 13:01] LABS: Amphetamine Screen,Urine Not Detected (NotDetected); Barbiturate Screen,Urine Not Detected (NotDetected); Benzodiazepines Screen,Urine Detected (NotDetected); Cocaine Screen,Urine Not Detected (NotDetected); Methadone Screen, Urine Not Detected (NotDetected); Opiate Screen,Urine Not Detected (NotDetected); Oxycodone Screen, Urine Not Detected (NotDetected); Phencyclidine Screen,Urine Not Detected (NotDetected); Tricyclic Antidepressant,Urine Detected (NotDetected); Urn Cannabinoid Scrn Not Detected (NotDetected)
[2024-09-07 13:53] VITALS: BP 146/79; PULSE 102; TEMP 98.1
== END 2024-09-07 13:53 | disposition home or self-care (01) ==
LOC: EC 10:35
DX: K59.00 Constipation, unspecified (principal); F20.9 Schizophrenia, unspecified; Z88.8 Allergy status to other drugs, medicaments and biological substances
CPT/HCPCS: 74018; 80306; 82075; 99284

== ENCOUNTER 2024-09-11 13:12 | Inpatient (IN) | payer MEDICARE, MEDICAID ==
--- NOTE | 2024-09-11 13:43 | ED ---
General Adult HPI - General Chief complaint: Psychiatric Symptoms Stated complaint: rectum pain Time Seen by Provider: 09/11/24 13:19 Source: patient Mode of arrival: ambulatory Limitations: no limitations - History of Present Illness Initial comments: Dictation was produced using [employer] dictation software. please excuse any grammatical, word or spelling errors. Chief Complaint: 59-year-old female with history of psychiatric illness presents to the emergency department for rectal complaint History of Present Illness: Patient is a 59-year-old female she is a poor historian. She has a history of psychiatric illness. She frequents the emergency department with multiple complaints. States that she is having issues with her rectum. She is unable to explain exactly what she is feeling. Patient history limited due to psychiatric illness. Denies any suicidal homicidal ideation. The ROS documented in this emergency department record has been reviewed and confirmed by me. Those systems with pertinent positive or negative responses have been documented in the HPI. All other systems are other negative and/or noncontributory. - Related Data Home Medications Medication Instructions Recorded Confirmed Benztropine Mesylate [Cogentin] 0.5 mg PO BID@0800,209908/10/24 09/11/24 Mirtazapine 30 mg PO HS@209908/10/24 09/11/24 Propranolol [Inderal] 20 mg PO BID@0800,209908/10/24 09/11/24 Psyllium Husk (with Sugar) 2 tsp PO DAILY@0800 08/10/24 09/11/24 [Metamucil Powder] Venlafaxine HCl ER [Effexor XR] 150 mg PO DAILY@79908/10/24 09/11/24 cloZAPine [Clozaril] 200 mg PO BID@0800,209908/10/24 09/11/24 hydrOXYzine pamoate [Vistaril] 25 mg PO BID@0800,209908/10/24 09/11/24 Pantoprazole Sodium [Protonix] 40 mg PO AC-BRKFST 08/31/24 09/11/24 Docusate [Colace] 100 mg PO BID@0800,209909/11/24 09/11/24 Lactulose [Cephulac] 30 gm PO BID@0800,209909/11/24 09/11/24 bisacodyL [Dulcolax] 10 mg RECTAL BID@0800,2100 09/11/24 09/11/24 haloperidoL [Haldol] 5 mg PO DAILY PRN 09/11/24 09/11/24 Previous Rx's Medication Instructions Recorded Baclofen 5 mg PO BID PRN #30 tablet 09/06/24 Allergies Allergy/AdvReac Type Severity Reaction Status Date / Time aripiprazole [From Abilify] AdvReac Mild "PASSES Verified 09/11/24 15:45 OUT" Review of Systems ROS Statement: Those systems with pertinent positive or pertinent negative responses have been documented in the HPI. ROS Other: All systems not noted in ROS Statement are negative. Past Medical History Past Medical History: Hypertension Additional Past Medical History / Comment(s): Demonstrating s/s of tardive dyskinesia AEB lifting legs up and down while standing and facial movements. Bowel obstruction History of Any Multi-Drug Resistant Organisms: None Reported Past Surgical History: Section Additional Past Surgical History / Comment(s): x 2 Past Anesthesia/Blood Transfusion Reactions: No Reported Reaction Past Psychological History: Schizoaffective Disorder Smoking Status: Never smoker Past Alcohol Use History: None Reported Past Drug Use History: None Reported General Exam - General Exam Comments Initial Comments: General: Well-appearing, nontoxic, no acute distress. Head: Normocephalic, atraumatic Eyes: PERRLA, EOMI ENT: Airway patent Chest: Nonlabored breathing Skin: No visual rash, normal skin tone Neuro: Alert and oriented 3 Musculoskeletal: No gross abnormalities Limitations: no limitations Course Vital Signs 09/11/24 13:16 Temperature 98 F Pulse Rate 122 H Respiratory 20 Rate Blood Pressure 166/90 O2 Sat by Pulse 99 Oximetry Medical Decision Making - Medical Decision Making Was pt. sent in by a medical professional or institution (, PA, OUTPATIENT THERAPIST, urgent care, hospital, or retirement...) When possible be specific @ -No Did you speak to anyone other than the patient for history (EMS, parent, family, police, friend...)? What history was obtained from this source @ -No Did you review nursing and triage notes (agree or disagree)? Why? @ -I reviewed and agree with nursing and triage notes Were old charts reviewed (outside hosp., previous admission, EMS record, old EKG, old radiological studies, urgent care reports/EKG's, retirement records)? Report findings @ -No old charts were reviewed Differential Diagnosis (chest pain, altered mental status, abdominal pain women, abdominal pain men, vaginal bleeding, musculoskeletal, weakness, fever, dyspnea, syncope, headache, dizziness, GI bleed, back pain, seizure, CVA, palpatations, mental health)? @ -Differential Mental Health: Depression, anxiety, bipolar, psychosis, schizophrenia, borderline personality, situational depression, adjustment disorder, behavioral disorder, brain tumor, malingering, substance abuse, encephalopathy, medication reaction, dementia, hypothyroidism, degenerative neurologic disorder, lupus.... This is not meant to be all-inclusive list EKG interpreted by me (3pts min.). @ -None done X-rays interpreted by me (1pt min.). @ -Pelvis x-ray shows no acute processes CT interpreted by me (1pt min.). @ -None done U/S interpreted by me (1pt. min.). @ -None done What testing was considered but not performed or refused? (CT, X-rays, U/S, labs)? Why? @ -None What meds were considered but not given or refused? Why? @ -None Was smoking cessation discussed for >3mins.? @ -No Were there social determinants of health that impacted care today? How? (Homelessness, low income, unemployed, alcoholism, drug addiction, transportation, low edu. Level, literacy, decrease access to med. care, care home, rehab)? @ -No Was there de-escalation of care discussed even if they declined (Discuss DNR or withdrawal of care, Hospice)? DNR status @ -No What co-morbidities impacted this encounter? (DM, HTN, Smoking, COPD, CAD, Cancer, CVA, ARF, Chemo, Hep., AIDS, mental health diagnosis, sleep apnea, morbid obesity)? @ -Psychiatric illness Was patient admitted / discharged? Hospital course, mention meds given and route, prescriptions, significant lab abnormalities, going to OR and other pertinent info. @ -59-year-old psychiatric female presents to the ER with rectal complaints. She is a poor historian. Rectal exam is unremarkable. Pelvis x-ray is negative for any foreign body. Patient medically ready for EPS evaluation. EPS evaluated patient recommends inpatient admission. Did you discuss the management of the patient with other professionals (professionals i.e. , PA, OUTPATIENT THERAPIST, lab, RT, psych nurse, community mental health social worker, cylinder machine operator, teacher, personnel training officer, case technician)? Give summary @ -EPS nurse as described above Was critical care preformed (if so, how long)? @ -No Undiagnosed new problem with uncertain prognosis? @ -No Drug Therapy requiring intensive monitoring for toxicity (Heparin, Nitro, Insulin, Cardizem)? @ -No Were any procedures done? @ -No Diagnosis/symptom? Acute, or Chronic, or Acute on Chronic? Uncomplicated (without systemic symptoms) or Complicated (systemic symptoms)? @ -Psychotic delusions Side effects of treatment? @ -No Exacerbation, Progression, or Severe Exacerbation? @ -No Poses a threat to life or bodily function? How? (Chest pain, [place], [place], pneumonia, PE, COPD, DKA, ARF, appy, cholecystitis, CVA, Diverticulitis, Homicidal, Suicidal, threat to staff... and all critical care pts) @ -yes Disposition Clinical Impression: Psychosis Disposition: ADMITTED IP TO THIS HOSP Condition: Fair Referrals: Tabitha Hernandez MD [Primary Care Provider] - 1-2 days Decision Time: 15:54
[2024-09-11] MEDS: LORazepam 2 MG/ML INJ IM STA (14:13)
--- NOTE | 2024-09-11 14:17 | XR ---
EXAMINATION TYPE: XR pelvis AP view DATE OF EXAM: 09/11/2024 2:06 PM COMPARISON: None CLINICAL INDICATION: Female, 59 years old with history of rectal complaints from psychotic patient; TECHNIQUE: XR pelvis AP view, examined in a single projection. FINDINGS: There is no evidence of fracture or dislocation. There is no soft tissue abnormality. No a bnormal calcifications are present. The spine appears intact. The hips appear intact. No significant degeneration. IMPRESSION: No acute osseous pathology. [facility], , 09/11/2024 2:14 PM
[2024-09-11] MEDS: ZIPRASIDONE 20 MG VIAL IM STA (17:56)
[2024-09-11 18:57] LABS: African American GFR (CKD) >90 (>60 ml/min/1.73 sqM); Anion Gap 4 mmol/L; Blood Urea Nitrogen 3 mg/dL (7-17); Carbon Dioxide 29 mmol/L (22-30); Chloride 105 mmol/L (98-107); Glucose 67 mg/dL (74-99); Non-African American GFR(CKD) >90 (>60 ml/min/1.73 sqM); Potassium 3.7 mmol/L (3.5-5.1); Sodium 138 mmol/L (137-145)
[2024-09-11 19:41] LABS: Basophils % (A) 1 %; Eosinophils # (A) 0.1 k/uL (0-0.7); Eosinophils % (A) 1 %; HCT 39.2 % (34.0-46.0); HGB 12.9 gm/dL (11.4-16.0); Lymphocytes # (A) 2.6 k/uL (1.0-4.8); Lymphocytes % (A) 42 %; MCH 28.7 pg (25.0-35.0); MCHC 32.8 g/dL (31.0-37.0); MCV 87.5 fL (80.0-100.0); Monocytes # (A) 0.4 k/uL (0-1.0); Monocytes % (A) 6 %; Neutrophils % (A) 48 %; RBC 4.48 m/uL (3.80-5.40); RDW 13.6 % (11.5-15.5); WBC 6.3 k/uL (3.8-10.6)
[2024-09-11] MEDS ORDERED: BACLOFEN 10 MG TAB PO PRN (21:13)
[2024-09-11] MEDS ORDERED: HALOPERIDOL LACTATE 5 MG/ML 1 ML VIAL IM PRN (21:18)
[2024-09-11] MEDS ORDERED: LORazepam 2 MG/ML INJ IM PRN (21:18)
[2024-09-11] MEDS ORDERED: MAGNESIUM HYDROXIDE 2,400 MG/30 ML CUP PO PRN (21:18)
[2024-09-11] MEDS ORDERED: haloperidoL 5 MG TAB PO PRN (21:18)
[2024-09-11] MEDS ORDERED: IBUPROFEN 600 MG TAB PO PRN (21:18)
[2024-09-11] MEDS ORDERED: ACETAMINOPHEN TAB 325 MG TAB PO PRN (21:18)
[2024-09-11] MEDS: diazePAM 5 MG TAB PO STA (21:47)
[2024-09-12] MEDS ORDERED: MAG HYDROX/AL HYDROX/SIMETH 355 ML BOTTLE PO PRN
[2024-09-12] MEDS: LACTULOSE 20 GM/30 ML CUP PO SCH (07:59)
[2024-09-12] MEDS: DOCUSATE 100 MG CAP PO SCH (08:00)
[2024-09-12] MEDS: VENLAFAXINE HCL ER 150 MG CAP PO SCH (08:00)
[2024-09-12] MEDS: hydrOXYzine pamoate 25 MG CAP PO SCH (08:00)
[2024-09-12] MEDS: BENZTROPINE MESYLATE 0.5 MG TAB PO SCH (08:00)
[2024-09-12] MEDS: PROPRANOLOL 20 MG TAB PO SCH (08:00)
[2024-09-12] MEDS: cloZAPine 100 MG TAB PO SCH (08:00)
[2024-09-12] MEDS: PANTOPRAZOLE 40 MG TABLET PO SCH (08:01)
[2024-09-12] MEDS: bisacodyL 10 MG SUPP RECTAL SCH (08:01)
[2024-09-12] MEDS: PSYLLIUM HUSK 100% 6 GM PACKET PO SCH (08:01)
[2024-09-12 08:42] LABS: Chol/HDL Ratio 3.03 Ratio; LDL Cholesterol,Calculated 118.6 mg/dL (0.0-131.0); VLDL Calculation 17.38 mg/dL (5.00-40.00)
[2024-09-12] MEDS: diazePAM 5 MG TAB PO SCH (11:50)
--- NOTE | 2024-09-12 11:52 | P.HP ---
Psychiatric H&P - . H&P Date: 09/12/24 History & Physical: Allergies Allergy/AdvReac Type Severity Reaction Status Date / Time aripiprazole [From [facility]] AdvReac Mild "PASSES Verified 09/11/24 15:45 OUT" Vital Signs Temp 97 F L 09/11/24 21:13 Pulse 102 H 09/12/24 06:46 Resp 16 09/11/24 21:13 BP 113/70 09/12/24 06:46 Pulse Ox 97 09/11/24 21:13 FiO2 Intake & Output 09/11/24 09/12/24 09/12/24 18:59 06:59 18:59 Weight 61.235 kg 61.235 kg Laboratory Last Values WBC 6.3 k/uL (3.8-10.6) 09/11/24 18:30 RBC 4.48 m/uL (3.80-5.40) 09/11/24 18:30 Hgb 12.9 gm/dL (11.4-16.0) 09/11/24 18:30 Hct 39.2 % (34.0-46.0) 09/11/24 18:30 MCV 87.5 fL (80.0-100.0) 09/11/24 18:30 MCH 28.7 pg (25.0-35.0) 09/11/24 18:30 MCHC 32.8 g/dL (31.0-37.0) 09/11/24 18:30 RDW 13.6 % (11.5-15.5) 09/11/24 18:30 Plt Count k/uL (150-450) 09/11/24 18:30 MPV 11.0 09/11/24 18:30 Neutrophils % 48 % 09/11/24 18:30 Lymphocytes % 42 % 09/11/24 18:30 Monocytes % 6 % 09/11/24 18:30 Eosinophils % 1 % 09/11/24 18:30 Basophils % 1 % 09/11/24 18:30 Neutrophils # 3.0 k/uL (1.3-7.7) 09/11/24 18:30 Lymphocytes # 2.6 k/uL (1.0-4.8) 09/11/24 18:30 Monocytes # 0.4 k/uL (0-1.0) 09/11/24 18:30 Eosinophils # 0.1 k/uL (0-0.7) 09/11/24 18:30 Basophils # 0.0 k/uL (0-0.2) 09/11/24 18:30 Manual Slide Review Performed 09/11/24 18:30 Sodium 138 mmol/L (137-145) 09/11/24 18:30 Potassium 3.7 mmol/L (3.5-5.1) 09/11/24 18:30 Chloride 105 mmol/L (98-107) 09/11/24 18:30 Carbon Dioxide 29 mmol/L (22-30) 09/11/24 18:30 Anion Gap 4 mmol/L 09/11/24 18:30 BUN 3 mg/dL (7-17) L 09/11/24 18:30 Creatinine 0.59 mg/dL (0.52-1.04) 09/11/24 18:30 Est GFR (CKD-EPI)AfAm >90 (>60 ml/min/1.73 sqM) 09/11/24 18:30 Est GFR (CKD-EPI)NonAf >90 (>60 ml/min/1.73 sqM) 09/11/24 18:30 Glucose 67 mg/dL (74-99) L 09/11/24 18:30 Calcium 9.0 mg/dL (8.4-10.2) 09/11/24 18:30 Triglycerides 86.90 mg/dL (0.00-149.00) 09/11/24 18:30 Cholesterol 203.00 mg/dL (0.00-200.00) H 09/11/24 18:30 LDL Cholesterol, Calc 118.6 mg/dL (0.0-131.0) 09/11/24 18:30 VLDL Cholesterol, Calc 17.38 mg/dL (5.00-40.00) 09/11/24 18:30 HDL Cholesterol 67.00 mg/dL (40.00-60.00) H 09/11/24 18:30 Cholesterol/HDL Ratio 3.03 Ratio 09/11/24 18:30 TSH 1.080 mIU/L (0.465-4.680) 09/11/24 18:30 SARS-CoV-2 (PCR) Not Detected (Not Detectd) 09/11/24 18:43 09/12/24 08:44 IDENTIFYING DATA: Patient is a 59 year old female. Lives in a chcf. Has two children, collects SSI HPI: Patient presented to the hospital on 08/10, 09/09, and again on 09/11. As per EPS note, "Clinician met with Carey in ER 9 to eval.Guardian/ Step mother to Carey's children, Linda, also present. Eric awake sitting in bed A/O x4 brought self in related to anxiety and concerns realted to their rectum similar presentation from 09/09/24. Cl reportedly left [facility] with no shoes on and came to the ER. Eric has presented to this ED previously on 08/10/24 with similiar duress and is diagnosed with schizophrenia with fixed delusional beliefs that there is " something in my rectum." Cl expressed these statements at last in patient admission 04/2024. ED record reflects xrays were completed and did not show signs of obstruction. Eric states " I had some pancakes for breakfast that have sugar in them and it is effecting my rectum, I think its going to come out." Eric got up from [facility] multiple times to use the bathroom and is reported to have been pacing in the ED hallway prior to EPS contact. Eric presents with worried affect, intense gaze, restless, guarded, anxious, overwhelmed, paranoid, and w fixed delusions. Evelyn is concerned for cl's safety and reports when eric has these thoughts they can be impulsive and unpredicatable. Evelyn is friend of the family for 17 yrs and familiar with eric's concerns. " I had to leave a cart full of groceries at [employer] and go shredder picker her shoes. The home can't stop her from leaving but I get concerned about what she might do." Evelyn also states " the other day she was worked up and said she would kill all these people around us in the store." Eric reports having SI stating " I can't go on living like this." Eric is currently residing in [facility] following last in patient stay. Eric reports monitoring their diet to help with the digestive concerns and eats meals at the home that she can modify as needed. Titojayna reports pending appointment with financial compliance officer in [place] on 10/03/2024. Cl follows up with [facility] as scheduled. Cl given Ativan 2 mg IM to help with anxiety. Cl reports meeting with Dr. Araujo at [facility] 3 weeks ago. Judgement/insight/impulse control poor, loss of conceptualization and abstraction. ADLS: fair Sleep/Renny: good/fair Medical issues: High BP and GI concerns. Medications: Baclofen 10MG Tablet Take 1 tablet by mouth Daily every morning Take 2 tablet by mouth At bedtime ,Benztropine Mesylate 0.5MG Tablet Take 1 tablet by mouth Twice a day, Clozaril 100MG Tablet (Clozapine) Take 2 tablet by mouth Twice a day, Docusate Sodium 100MG Capsule (Laxative, Stool Softeners) Take 1 capsule by mouth Twice a day, Lactulose 10GM/15ML Solution Take 30 ml by mouth Twice a day , Propranolol HCl 20MG Tablet Take 1 tablet by mouth Twice a day ,Protonix 40MG Tablet, Delayed Release (Pantoprazole) Take 1 tablet by mouth Once a day, Remeron 30MG Tablet(Mirtazapine) Take 1 tablet by mouth At bedtime ,Valium 10MG Tablet (Diazepam)Schedule IV Take 1 tablet by mouth Twice a day Take one morning and one in the afternoon/evening, Venlafaxine HCl 150MG Tablet, Extended Release Take 1 tablet by mouth Daily every morning, Vistaril 25MG Capsule (Hydroxyzine) Take 1 capsule by mouth Twice a day. Hx of MH tx: Open w [facility] Hx of in pat: Last: [facility] 04/2024. Hx of MIKAL: None reported. BAT: 0.0 / UDS: Anti Tric and benzo which are prescribed. Hx of in pat rehab: none reported. Fam Hx: not addressed. Hx of trauma: not addressed. Hx of legal: none current Denies SI/HI/ARMIDA. Previous 09/07/24~ EPS: Clinician met with Carey in ER 24 to kp. Cl awake sitting in bed A/O x4 brought self in related to anxiety and concerns realted to their rectum. Cl has presented to this ED under similiar duress and is diagnosed with schizophrenia with delusional beliefs that there is " something in my rectum." Cl expressed these statements at last in patient admission 04/2024. ED record reflects constipation and cl was provided with Citrate of Magnesia. Cl states " That stuff has sugar in it and its only going to make it worse." Cl presents with flat affect, intense gaze, restless, guarded, anxious, overwhelmed, paranoid, and w fixed delusions. " I don't want to go to the psych [facility], they aren't going to help me." Eric is currently residing in [facility] following last in patient stay. Cl also has their friend " Linda " who is cl's guardian. Cl reports monitoring their diet to help with the digestive concerns. Guardian reports pending appointment with financial compliance officer in [place] on . Cl follows up with [facility] as scheduled. Judgement/insight/impulse control poor, loss of conceptualization and abstraction. ADLS: fair Sleep/Renny: good/fair Medical issues: High BP and GI concerns. Medications: Baclofen 10MG Tablet Take 1 tablet by mouth Daily every morning Take 2 tablet by mouth At bedtime ,Benztropine Mesylate 0.5MG Tablet Take 1 tablet by mouth Twice a day, Clozaril 100MG Tablet (Clozapine) Take 2 tablet by mouth Twice a day, Docusate Sodium 100MG Capsule (Laxative, Stool Softeners) Take 1 capsule by mouth Twice a day, Lactulose 10GM/15ML Solution Take 30 ml by mouth Twice a day , Propranolol HCl 20MG Tablet Take 1 tablet by mouth Twice a day ,Protonix 40MG Tablet, Delayed Release (Pantoprazole) Take 1 tablet by mouth Once a day, Remeron 30MG Tablet(Mirtazapine) Take 1 tablet by mouth At bedtime ,Valium 10MG Tablet (Diazepam)Schedule IV Take 1 tablet by mouth Twice a day Take one morning and one in the afternoon/evening, Venlafaxine HCl 150MG Tablet, Extended Release Take 1 tablet by mouth Daily every morning, Vistaril 25MG Capsule (Hydroxyzine) Take 1 capsule by mouth Twice a day. Hx of MH tx: Open w [facility] Hx of in pat: Last: [facility] 04/2024. Hx of MIKAL: None reported. BAT: 0.0 / UDS: Anti Tric and benzo which are prescribed. Hx of in pat rehab: none reported. Fam Hx: not addressed. Hx of trauma: not addressed. Hx of legal: none current Denies SI/HI/ARMIDA. Previous EPS: 08/10/2024: Pt walked over to ER as she was having an "anxious rectum". She denies SI, HI, or hallucinations at this time. Pt is currently staying at a ch[facility] and denies any issues with the facility. Pt is able to hold a conversation and was calm and cooperative with RN. Pt did discuss her ongoing issue with her rectum. We also discussed following up with gastro as pt does appear to have constipation noted on ultrasound per Mar. Pt denies any other concerns besides not being able to defacate. Pt answered questions appropriately and maintained good eye contact. Pt appeared to be well groomed. Pts guardian was present and agreed to take her back to [facility]. We discussed the use of her medications and drinking fluids. Encouraged to return to the ER if condition worsens. RN emailed [facility] treatment team about pt being in the ER. Pt to follow up with [facility] team. Pt is not a current harm to self or others. Upon today's assessment, she states she came to the hospital because her rectum is anxious again, and her bowel movements are a weird white color, and she has problems going to the bathroom. She states sometimes she wants to hurt herself, because she just wants her life back. She expresses that her night medications are working, however, she does not think the day medications are helping. She states her appetite is good, but she is scared to eat. Patient denies suicidal ideations, with no plan, denies homicidal ideations intent or plan. At this time patient denies any auditory or visual hallucinations. Patient denies any flight of ideas racing thoughts and increased in goal directed behavior. Patient denies using recreational drugs/alcohol/cigarettes. PAST PSYCHIATRIC HISTORY: Patient states that she follows up with [facility]. She is currently on Clozaril 100mg bid, Remeron 30mg qhs, Visteral 25mg bid, Valium 10mg bid, Effexor XR 150mg daily. Patient has had many impatient stays, and has tried to commit suicide 4 years ago. PMH:As per ER note ALLERGIES: as per EMR CHEMICAL DEPENDENCY HISTORY: as per HPI FAMILY PSYCHIATRIC/SUBSTANCE USE HISTORY: aunt has schizophrenia. Patient states she was diagnosed with schizophrenia 'a couple years ago' SOCIAL HISTORY: Patient was born and raised in [place], [place], High school graduate, Lives with her guardian, has 2 children, and collects SSI. Denies legal history. MENTAL STATUS EXAM: General Appearance: Patient appears to be older than stated age, is alert, [directable, and attempts to cooperate]. Patient appears to have fair hygiene and grooming. Behavior: Patient is seated without any agitated behavior. Fidgety, Anxious, Intense eye contact Speech: Patient's speech is fluent and nonpressured. Mood/Affect: Patient reports their mood is depressed, affect is congruent and constricted. Suicidality/Homicidality: Patient denies having any homicidal ideation intent or plan. endorses suicidal ideations , with no intent or plan Perceptions: Patient denies any visual hallucinations and denies any auditory hallucinations Though content/process: There is evidence of any delusional thought content and thought process is focused on anxiety in her rectum Memory and concentration: AOX3, grossly intact for the purposes of this session. Can spell "WORLD" backwards Judgment and insight: poor STRENGTHS/WEAKNESSES: strength is that patient is resilient. Weakness is that patient has poor judgment and is impulsive INTELLECT: average IMPRESSIONS: schizophrenia suicidal ideation PLAN: -Patient is admitted under voluntary status to MHU for stabilization of psychiatric symptoms and safety. Patient is on a deferral, and signed medication consent and is placed in patient's chart. -Medications : Will start patient on Cogentin 0.5mg bid for EPS, Clozaril 200mg BID for psychosis, valium 5mg bid for anxiety, visteral 25mg bid for anxiety, remeron 30mg qhs for sleep, effexor 150mg daily for mood/anxiety -Ativan and Haldol PRN for agitation/aggression -Patient was informed of the risks, benefits and side effects of the medication and patient verbally consented to taking the medications. -Internal Medicine consult to perform medical evaluation and physical. -NRT - nicotine patch -SW on board for discharge planning. Encourage patient to participate in groups to work on coping skills. Deferral exp 09/27
[2024-09-12 15:04] LABS: Appearance,Urine Clear (Clear); Bilirubin,Urine Negative (Negative); Blood,Urine Negative (Negative); Color,Urine Yellow; Glucose,Urine (UA) Negative (Negative); Ketones,Urine 1+ (Negative); Leukocyte Esterase,Urine Negative (Negative); Mucus,Urine Moderate /hpf; Nitrite,Urine Negative (Negative); PH, Urine 6.5 (5.0-8.0); Protein,Urine 1+ (Negative); RBC,Urine 4 /hpf (0-5); Specific Gravity,Urine 1.025 (1.001-1.035); Squamous Epithelial Cell,Urine 2 /hpf (0-4); WBC,Urine 3 /hpf (0-5)
[2024-09-12 20:12] LABS: Urine Alcohol Negative (Negative); Urine Barbiturate Negative (Negative); Urine Cocaine Negative (Negative); Urine Methadone Negative (Negative); Urine Opiates Negative (Negative); Urine Phencyclidine Negative (Negative)
[2024-09-12] MEDS: MIRTAZAPINE 15 MG TAB PO SCH (20:28)
[2024-09-12] MEDS: HYDROCORTISONE 2.5% RECTAL CREAM 30 GM TUBE RECTAL SCH (20:51)
--- NOTE | 2024-09-12 23:03 | CONS ---
CONSULTATION REASON FOR CONSULTATION: Advice regarding hypertension and other medical issues, requested by Psychiatry. HISTORY OF PRESENT ILLNESS: This is a 59-year-old woman with past medical history significant for hypertension and also some history of schizoaffective disorder and tardive dyskinesia also. The patient is admitted to psych floor for psych evaluation. The patient is also complaining of rectal pain mostly related to anxiety. According to her, there is no history of any fever, rigors, or chills. PAST MEDICAL HISTORY: Hypertension, tardive dyskinesia. Rest of the history and rest of the chart is also reviewed. HOME MEDICATIONS: Reviewed include Valium. Dose and rest of medications reviewed. ALLERGIES: Abilify. FAMILY HISTORY: No history of heart disease or strokes in the family. SOCIAL HISTORY: Smoking. REVIEW OF SYSTEMS: A 14-point review is negative except as mentioned earlier. PHYSICAL EXAMINATION: VITAL SIGNS: Pulse is 101, blood pressure 113/70, respirations 20, temperature normal. CHEST: Clear. CARDIOVASCULAR: S1, S2. RESPIRATIONS: Breath sounds diminished at the bases. ABDOMEN: Soft. NERVOUS SYSTEM: Nonfocal. SKIN: No ulcer, rash, bleeding. JOINTS: No active deforming arthropathy. LABORATORY DATA: Reviewed. ASSESSMENT: 1. Hypertension and tachycardia. 2. History of tardive dyskinesia. 3. History of schizoaffective disorder. 4. History of nicotine dependence. 5. Rectal pain and discomfort. 6. Severe anxiety. RECOMMENDATIONS AND DISCUSSION: This is a 59-year-old woman, who presented with multiple complex medical issues. At this time, I recommend to resume the home medications. Monitor blood pressure closely. The patient has some tachycardia, could be related to anxiety. Symptomatic treatment for the rectal symptoms. Otherwise, recommend close followup with primary physician. MMODL / IJN: [id number] /
[2024-09-13 11:53] LABS: Clozapine (Clozaril) 327 ng/mL (200-700); Norclozapine 333 ng/mL (200-700)
--- NOTE | 2024-09-13 11:59 | P.PN ---
Progress Note - Text Progress Note Date: 09/13/24 Interval History: Patient was seen resting in bed and was directable and agreeable to speak with promotion writer at the bedside. She states she is terrible today. She continues to state that anxiety is in her rectum. She reports eating breakfast this morning. She states that she was sleeping just a little bit last night. She still presents as anxious. She states that she feels like hurting herself, but she will not, she just wants her life back. At this time patient denies any suicidal or homicidal ideations, intent or plan. Patient denies any auditory, visual hallucinations and denies any paranoia or delusions. Patient denies any side effects from the medications and has been compliant with meds. MENTAL STATUS EXAM: General Appearance: Patient appears to be older than stated age, is alert, directable, and attempts to cooperate. Patient appears to have fair hygiene and grooming. Behavior: Patient is seated without any agitated behavior. Fidgety, Anxious, Intense eye contact Speech: Patient's speech is fluent and nonpressured. Mood/Affect: Patient reports their mood is depressed, affect is congruent and constricted. Suicidality/Homicidality: Patient denies having any homicidal ideation intent or plan. denies any suicidal ideations , with no intent or plan Perceptions: Patient denies any visual hallucinations and denies any auditory hallucinations Though content/process: There is evidence of any delusional thought content and thought process is focused on anxiety in her rectum, this is chronic Memory and concentration: AOX3, grossly intact for the purposes of this session. Judgment and insight: chronically limited IMPRESSIONS: schizophrenia suicidal ideation PLAN: -Patient is admitted under voluntary status to [facility] for stabilization of psychiatric symptoms and safety. Patient is on a deferral -Medications : Cogentin 0.5mg bid for EPS, Clozaril 200mg BID for psychosis, valium 5mg bid for anxiety, visteral 25mg bid for anxiety, remeron 30mg qhs for sleep, effexor 150mg daily for mood/anxiety -Ativan and Haldol PRN for agitation/aggression -NRT - nicotine patch -SW on board for discharge planning. Encourage patient to participate in groups to work on coping skills. Deferral exp 09/27. hopeful for discharge tomorrow back to [facility] if patient is improving.
[2024-09-13 13:45] VITALS: BMI 20.5
[2024-09-13] MEDS: LORazepam 1 MG TAB PO PRN (20:33)
[2024-09-14 08:00] VITALS: BP 108/60; PULSE 89; RESP 20; TEMP 97.7
[2024-09-14 09:00] LABS: Basophils % (A) 1 %; Eosinophils # (A) 0.1 k/uL (0-0.7); Eosinophils % (A) 3 %; HCT 44.4 % (34.0-46.0); HGB 13.8 gm/dL (11.4-16.0); Lymphocytes # (A) 1.9 k/uL (1.0-4.8); Lymphocytes % (A) 40 %; MCH 27.7 pg (25.0-35.0); MCV 89.4 fL (80.0-100.0); Mean Platelet Volume 8.7; Monocytes # (A) 0.4 k/uL (0-1.0); Monocytes % (A) 7 %; Neutrophils # (A) 2.3 k/uL (1.3-7.7); Neutrophils % (A) 48 %; Platelet Count 221 k/uL (150-450); RBC 4.97 m/uL (3.80-5.40); RDW 13.9 % (11.5-15.5); WBC 4.7 k/uL (3.8-10.6)
--- NOTE | 2024-09-14 11:44 | P.DS ---
Providers Date of admission: 09/11/24 21:09 Expected date of discharge: 09/14/24 Attending physician: Gregory Kelly MD Consults: 09/11/24 21:18 Consult Physician Routine Consulting Provider: [facility] Hospitalists Consult Reason/Comments: H&P and medical Do you want consulting provider notified?: Yes, Notify in am Primary care physician: Tabitha Hernandez - Discharge Diagnosis(es) (1) Schizophrenia Current Visit: Yes Status: Acute Priority: High (2) Suicidal ideation Current Visit: Yes Status: Acute Priority: High Hospital Course: Admission HPI: Admission note was completed by medical underwriter "Patient is a 59 year old female. Lives in a residential. Has two children, collects SSI. HPI: Patient presented to the hospital on 08/10, 09/09, and again on 09/11. As per EPS note, "Clinician met with Carey in ER 9 to eval.Guardian/ Step mother to Carey's children, Linda, also present. Eric awake sitting in bed A/O x4 brought self in related to anxiety and concerns realted to their rectum similar presentation from 09/09/24. Eric reportedly left [facility] with no shoes on and came to the ER. Eric has presented to this ED previously on 08/10/24 with similiar duress and is diag nosed with schizophrenia with fixed delusional beliefs that there is " something in my rectum." Eric expressed these statements at last in patient admission 04/2024. ED record reflects xrays were completed and did not show signs of obstruction. Eric states " I had some pancakes for breakfast that have sugar in them and it is effecting my rectum, I think its going to come out." Eric got [facility] multiple times to use the bathroom and is reported to have been pacing in the ED hallway prior to EPS contact. Cl presents with worried affect, intense gaze, restless, guarded, anxious, overwhelmed, paranoid, and w fixed delusions. Guardian is concerned for cl's safety and reports when cl has these thoughts they can be impulsive and unpredicatable. Guardian is friend of the family for 17 yrs and familiar with cl's concerns. 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 The home can't stop her from leaving but I get concerned about what she might do." Guardian also states " the other day she was worked up and said she would kill all these people around us in the store." Cl reports having SI stating " I can't go on living like this." Cl is currently residing in [facility] following last in patient stay. Cl reports monitoring their diet to help with the digestive concerns and eats meals at the home that she can modify as needed. Guardian reports pending appointment with screw machine set up operator tool in [place] on 10/03/2024. Cl follows up with [facility] as scheduled. Cl given Ativan 2 mg IM to help with anxiety. Cl reports meeting with Dr. Araujo at [facility] 3 weeks ago. Judgement/insight/impulse control poor, loss of conceptualization and abstraction. ADLS: fair Sleep/Renny: good/fair Medical issues: High BP and GI concerns. Medications: Baclofen 10MG Tablet Take 1 tablet by mouth Daily every morning Take 2 tablet by mouth At bedtime ,Benztropine Mesylate 0.5MG Tablet Take 1 tablet by mouth Twice a day, Clozaril 100MG Tablet (Clozapine) Take 2 tablet by mouth Twice a day, Docusate Sodium 100MG Capsule (Laxative, Stool Softeners) Take 1 capsule by mouth Twice a day, Lactulose 10GM/15ML Solution Take 30 ml by mouth Twice a day , Propranolol HCl 20MG Tablet Take 1 tablet by mouth Twice a day ,Protonix 40MG Tablet, Delayed Release (Pantoprazole) Take 1 tablet by mouth Once a day, Remeron 30MG Tablet(Mirtazapine) Take 1 tablet by mouth At bedtime ,Valium 10MG Tablet (Diazepam)Schedule IV Take 1 tablet by mouth Twice a day Take one morning and one in the afternoon/evening, Venlafaxine HCl 150MG Tablet, Extended Release Take 1 tablet by mouth Daily every morning, Vistaril 25MG Capsule (Hydroxyzine) Take 1 capsule by mouth Twice a day. Hx of MH tx: Open w [facility] Hx of in pat: Last: [facility] 04/2024. Hx of MIKAL: None reported. BAT: 0.0 / UDS: Anti Tric and benzo which are prescribed. Hx of in pat rehab: none reported. Fam Hx: not addressed. Hx of trauma: not addressed. Hx of legal: none current Denies SI/HI/ARMIDA. Previous 09/07/24~ EPS: Clinician met with Carey in ER 24 to kp. Cl awake sitting in bed A/O x4 brought self in related to anxiety and concerns realted to their rectum. Cl has presented to this ED under similiar duress and is diagnosed with schizophrenia with delusional beliefs that there is " something in my rectum." Cl expressed these statements at last in patient admission 04/2024. ED record reflects constipation and cl was provided with Citrate of Magnesia. Cl states " That stuff has sugar in it and its only going to make it worse." Cl presents with flat affect, intense gaze, restless, guarded, anxious, overwhelmed, paranoid, and w fixed delusions. " I don't want to go to the psych [facility], they aren't going to help me." Eric is currently residing in [facility] following last in patient stay. Cl also has their friend " Linda " who is eric's guardian. Cl reports monitoring their diet to help with the digestive concerns. Guardian reports pending appointment with screw machine set up operator tool in [place] on 10/03/2024. Cl follows up with [facility] as scheduled. Judgement/insight/impulse control poor, loss of conceptualization and abstraction. ADLS: fair Sleep/Renny: good/fair Medical issues: High BP and GI concerns. Medications: Baclofen 10MG Tablet Take 1 tablet by mouth Daily every morning Take 2 tablet by mouth At bedtime ,Benztropine Mesylate 0.5MG Tablet Take 1 tablet by mouth Twice a day, Clozaril 100MG Tablet (Clozapine) Take 2 tablet by mouth Twice a day, Docusate Sodium 100MG Capsule (Laxative, Stool Softeners) Take 1 capsule by mouth Twice a day, Lactulose 10GM/15ML Solution Take 30 ml by mouth Twice a day , Propranolol HCl 20MG Tablet Take 1 tablet by mouth Twice a day ,Protonix 40MG Tablet, Delayed Release (Pantoprazole) Take 1 tablet by mouth Once a day, Remeron 30MG Tablet(Mirtazapine) Take 1 tablet by mouth At bedtime ,Valium 10MG Tablet (Diazepam)Schedule IV Take 1 tablet by mouth Twice a day Take one morning and one in the afternoon/evening, Venlafaxine HCl 150MG Tablet, Extended Release Take 1 tablet by mouth Daily every morning, Vistaril 25MG Capsule (Hydroxyzine) Take 1 capsule by mouth Twice a day. Hx of MH tx: Open w [facility] Hx of in pat: Last: [facility] 04/2024. Hx of MIKAL: None reported. BAT: 0.0 / UDS: Anti Tric and benzo which are prescribed. Hx of in pat rehab: none reported. Fam Hx: not addressed. Hx of trauma: not addressed. Hx of legal: none current Denies SI/HI/ARMIDA. Previous EPS: 08/10/2024: Pt walked over to ER as she was having an "anxious rectum". She denies SI, HI, or hallucinations at this time. Pt is currently staying at a residential and denies any issues with the facility. Pt is able to hold a conversation and was calm and cooperative with RN. Pt did discuss her ongoing issue with her rectum. We also discussed following up with gastro as pt does appear to have constipation noted on ultrasound per Mar. Pt denies any other concerns besides not being able to defacate. Pt answered questions appropriately and maintained good eye contact. Pt appeared to be well groomed. Pts guardian was present and agreed to take her back to [facility]. We discussed the use of her medications and drinking fluids. Encouraged to return to the ER if condition worsens. RN emailed [facility] treatment team about pt being in the ER. Pt to follow up with [facility] team. Pt is not a current harm to self or others. Upon today's assessment, she states she came to the hospital because her rectum is anxious again, and her bowel movements are a weird white color, and she has problems going to the bathroom. She states sometimes she wants to hurt herself, because she just wants her life back. She expresses that her night medications are working, however, she does not think the day medications are helping. She states her appetite is good, but she is scared to eat. Patient denies suicidal ideations, with no plan, denies homicidal ideations intent or plan. At this time patient denies any auditory or visual hallucinations. Patient denies any flight of ideas racing thoughts and increased in goal directed behavior. Patient denies using recreational drugs/alcohol/cigarettes." Hospital course: Upon admission to the unit patient was directable and agreeable to commence treatment and signed adult voluntary form. Patient got along well with other patients on the unit and followed unit protocol. Patient was compliant with the medications and denied any side effects throughout hospital course. Patient was started on her home dose of Cogentin 0.5 mg twice daily for EPS symptoms, Clozaril 200 mg twice daily for psychosis, Valium 5 mg twice daily for anxiety, Vistaril 25 mg twice daily for anxiety, Remeron 30 mg nightly for sleep, Effexor 150 mg daily for mood/anxiety. Patient spoke of her stressors and engaged in therapy both group and individual. Patient was also seen by medical team for history and physical exam. Patient continues to remain focused/has a chronic delusion about her rectum feeling "anxious" and believing that she has something in it. Patient does have an outpatient follow-up appointment with [facility], she has received multiple workups medically for this which have mainly come up negative. Throughout the course of the hospitalization patient gradually improved with regards to mood, anxiety, psychosis, sleep and returned back to their baseline level of functioning. On the day of discharge patient denied any suicidal or homicidal ideations intent or plan denied any auditory or visual hallucinations. Patient endorsed wanting to live for their health and family. The patient denied any access to guns or weapons. Patient denied any paranoia and did not endorse any delusions. Patient does not have a significant history of substance abuse and was counseled on abstaining from all substances including alcohol and marijuana. . Patient was also counseled on the medications and need for regular compliance and was encouraged to follow-up with their outpatient appointment for mental health and also for primary care. Patient will be discharged back to [facility] home today with close [facility] follow-up. Mental status exam: General Appearance: Patient appears to be thin, stated age is alert, pleasant, and cooperative. Patient is in no acute distress and has improved hygiene and grooming Behavior: Patient is calmly seated without any agitated behavior. Speech: Patient's speech is fluent and nonpressured. Mood/Affect: Patient reports their mood is "the same", affect is congruent and constricted Suicidality/Homicidality: Patient denies having any suicidal or homicidal ideation intent or plan. Perceptions: Patient denies any auditory or visual hallucinations. Though content/process: There is no evidence of any delusional thought content and thought process is linear and goal-directed. fixed delusion of somehting being in her rectum and it feeling "anxious" Memory and concentration: AOX3, grossly intact for the purposes of this session. Can spell "WORLD" backwards correctly. Judgment and insight: Chronically poor, however has improved with guarded p rognosis Impression: Schizophrenia Suicidal ideations Plan: -Continue with discharge today as patient has improved and stabilized psychiatrically and is not currently an imminent threat to themself and/or others. [Patient will remain at chronically elevated risk for harm to self and/or others due to their chronic mental illness -Continue medications: Continue with Cogentin 0.5 mg twice daily for EPS symptoms, Clozaril 200 mg twice daily for psychosisdelusions, Valium 5 mg twice daily for anxiety, Vistaril 25 mg twice daily for anxiety, Remeron 30 mg nightly for sleep/mood/anxiety, Effexor 150 mg daily for mood/anxiety. -Patient was counseled on the need for medication compliance and appropriate follow-up at mental health and also primary care for medical issues. Patient verbalized understanding and agreed. -Social work to help coordinate patients discharge today as patient will be discharged back to [facility] with close [facility] follow-up. also to ensure safe home environment that guns/weapons are either removed from the home or locked away. Social work also to arrange for patients follow up appointments with [facility] for psychiatric care along with follow up with primary care provider. -Patient counseled on abstaining from recreational drugs and marijuana and alcohol. Was informed/educated on the adverse effects on their physical and mental health. Patient verbally agreed and understood. -Patient was instructed to return to the hospital or seek immediate medical care if their psychiatric or medical symptoms do worsen or reoccur. Allergies Allergy/AdvReac Type Severity Reaction Status Date / Time aripiprazole [From Abilify] AdvReac Mild "PASSES Verified 09/11/24 15:45 OUT" Laboratory Results WBC 4.7 k/uL (3.8-10.6) 09/14/24 08:32 RBC 4.97 m/uL (3.80-5.40) 09/14/24 08:32 Hgb 13.8 gm/dL (11.4-16.0) 09/14/24 08:32 Hct 44.4 % (34.0-46.0) 09/14/24 08:32 MCV 89.4 fL (80.0-100.0) 09/14/24 08: MCH 27.7 pg (25.0-35.0) 09/14/24 08: MCHC 31.0 g/dL (31.0-37.0) 09/14/24 08:32 RDW 13.9 % (11.5-15.5) 09/14/24 08:32 Plt Count 221 k/uL (150-450) 09/14/24 08:32 MPV 8.7 09/14/24 08:32 Neutrophils % 48 % 09/14/24 08:32 Lymphocytes % 40 % 09/14/24 08:32 Monocytes % 7 % 09/14/24 08: Eosinophils % 3 % 09/14/24 08: Basophils % 1 % 09/14/24 08: Neutrophils # 2.3 k/uL (1.3-7.7) 09/14/24 08: Lymphocytes # 1.9 k/uL (1.0-4.8) 09/14/24 08: Monocytes # 0.4 k/uL (0-1.0) 09/14/24 08:32 Eosinophils # 0.1 k/uL (0-0.7) 09/14/24 08: Basophils # 0.0 k/uL (0-0.2) 09/14/24 08:32 Manual Slide Review Performed 09/11/24 18:30 Sodium 138 mmol/L (137-145) 09/11/24 18:30 Potassium 3.7 mmol/L (3.5-5.1) 09/11/24 18:30 Chloride 105 mmol/L (98-107) 09/11/24 18:30 Carbon Dioxide 29 mmol/L (22-30) 09/11/24 18:30 Anion Gap 4 mmol/L 09/11/24 18:30 BUN 3 mg/dL (7-17) L 09/11/24 18:30 Creatinine 0.59 mg/dL (0.52-1.04) 09/11/24 18:30 Est GFR (CKD-EPI)AfAm >90 (>60 ml/min/1.73 sqM) 09/11/24 18:30 Est GFR (CKD-EPI)NonAf >90 (>60 ml/min/1.73 sqM) 09/11/24 18:30 Glucose 67 mg/dL (74-99) L 09/11/24 18:30 Calcium 9.0 mg/dL (8.4-10.2) 09/11/24 18:30 Triglycerides 86.90 mg/dL (0.00-149.00) 09/11/24 18:30 Cholesterol 203.00 mg/dL (0.00-200.00) H 09/11/24 18:30 LDL Cholesterol, Calc 118.6 mg/dL (0.0-131.0) 09/11/24 18:30 VLDL Cholesterol, Calc 17.38 mg/dL (5.00-40.00) 09/11/24 18:30 HDL Cholesterol 67.00 mg/dL (40.00-60.00) H 09/11/24 18:30 Cholesterol/HDL Ratio 3.03 Ratio 09/11/24 18:30 TSH 1.080 mIU/L (0.465-4.680) 09/11/24 18:30 Urine Color Yellow 09/12/24 14:30 Urine Appearance Clear (Clear) 09/12/24 14:30 Urine pH 6.5 (5.0-8.0) 09/12/24 14:30 Ur Specific [place] 1.025 (1.001-1.035) 09/12/24 14:30 Urine Protein 1+ (Negative) H 09/12/24 14:30 Urine Glucose (UA) Negative (Negative) 09/12/24 14:30 Urine Ketones 1+ (Negative) H 09/12/24 14:30 Urine Blood Negative (Negative) 09/12/24 14:30 Urine Nitrite Negative (Negative) 09/12/24 14:30 Urine Bilirubin Negative (Negative) 09/12/24 14:30 Urine Urobilinogen 3.0 mg/dL (<2.0) 09/12/24 14:30 Ur Leukocyte Esterase Negative (Negative) 09/12/24 14:30 Urine RBC 4 /hpf (0-5) 09/12/24 14:30 Urine WBC 3 /hpf (0-5) 09/12/24 14:30 Ur Squamous Epith Cells 2 /hpf (0-4) 09/12/24 14:30 Urine Mucus Moderate /hpf (None) H 09/12/24 14:30 Urine Opiates Screen Negative (Negative) 09/12/24 14:30 Urine Methadone Screen Negative (Negative) 09/12/24 14:30 Ur Propoxyphene Screen Negative (Negative) 09/12/24 14:30 Urine Barbiturates Negative (Negative) 09/12/24 14:30 Ur Phencyclidine Scrn Negative (Negative) 09/12/24 14:30 Clozapine 327 ng/mL (200-700) 09/11/24 19:18 Norclozapine 333 ng/mL (200-700) 09/11/24 19:18 Ur Amphetamine Screen Negative (Negative) 09/12/24 14:30 U Benzodiazepines Scrn Positive (Negative) A 09/12/24 14:30 Urine Cocaine Screen Negative (Negative) 09/12/24 14:30 U Cannabinoids Screen Negative (Negative) 09/12/24 14:30 Urine Alcohol Negative (Negative) 09/12/24 14:30 U Creatinine Drug Scrn 243.0 mg/dL (>=20.0) 09/12/24 14:30 SARS-CoV-2 (PCR) Not Detected (Not Detectd) 09/11/24 18:43 Vital Signs Temp 97.7 F 09/14/24 07:59 Pulse 89 09/14/24 07:59 Resp 20 09/14/24 07:59 BP 108/60 09/14/24 07:59 Pulse Ox 97 09/14/24 06:42 FiO2 Intake & Output 09/13/24 09/14/24 09/14/24 18:59 06:59 18:59 Weight 61.235 kg Patient Condition at Discharge: Fair Plan - Discharge Summary Discharge Rx Participant: Yes New Discharge Prescriptions: New Baclofen 10 mg PO BID PRN 30 Days #60 tab PRN Reason: Muscle Spasm Hydrocortisone Pr Cream [Proctosol-Hc 2.5%] 1 applic RECTAL BID 30 Days #1 each Continue diazePAM [Valium] 5 mg PO BID@0900,1700 Psyllium Husk (with Sugar) [Metamucil Powder] 2 tsp PO DAILY@0800 30 Days #1 gm Mirtazapine 30 mg PO HS@2099 30 Days #30 tab Pantoprazole Sodium [Protonix] 40 mg PO DAILY@0700 30 Days #30 tab hydrOXYzine pamoate [Vistaril] 25 mg PO BID@0800,2099 30 Days #60 cap haloperidoL [Haldol] 5 mg PO DAILY PRN PRN Reason: Agitation cloZAPine [Clozaril] 200 mg PO BID@08,2099 7 Days #28 tab Benztropine Mesylate [Cogentin] 0.5 mg PO BID@08,2099 30 Days #60 tab Venlafaxine HCl ER [Effexor XR] 150 mg PO DAILY@0800 30 Days #30 cap Propranolol [Inderal] 20 mg PO BID@08,2099 30 Days #60 tab Changed Lactulose [Cephulac] 30 gm PO BID@0800,1700 30 Days #1 ml Docusate [Colace] 100 mg PO BID@799,2099 30 Days #60 cap bisacodyL [Dulcolax] 10 mg RECTAL BID@799,2099 30 Days #1 suppositor Discontinued Baclofen 5 mg PO BID PRN #30 tablet PRN Reason: Spasms Discharge Medication List diazePAM [Valium] 5 mg PO BID@0900,1700 09/11/24 [History] haloperidoL [Haldol] 5 mg PO DAILY PRN 09/11/24 [History] Baclofen 10 mg PO BID PRN 30 Days #60 tab 09/14/24 [Rx] Benztropine Mesylate [Cogentin] 0.5 mg PO BID@799,2099 30 Days #60 tab 09/14/24 [Rx] Docusate [Colace] 100 mg PO BID@799,2099 30 Days #60 cap 09/14/24 [Rx] Hydrocortisone Pr Cream [Proctosol-Hc 2.5%] 1 applic RECTAL BID 30 Days #1 each 09/14/24 [Rx] Lactulose [Cephulac] 30 gm PO BID@0800,1700 30 Days #1 ml 09/14/24 [Rx] Mirtazapine 30 mg PO HS@2099 30 Days #30 tab 09/14/24 [Rx] Pantoprazole Sodium [Protonix] 40 mg PO DAILY@0700 30 Days #30 tab 09/14/24 [Rx] Propranolol [Inderal] 20 mg PO BID@0800,2099 30 Days #60 tab 09/14/24 [Rx] Psyllium Husk (with Sugar) [Metamucil Powder] 2 tsp PO DAILY@0800 30 Days #1 gm 09/14/24 [Rx] Venlafaxine HCl ER [Effexor XR] 150 mg PO DAILY@0800 30 Days #30 cap 09/14/24 [Rx] bisacodyL [Dulcolax] 10 mg RECTAL BID@0800,2099 30 Days #1 suppositor 09/14/24 [Rx] cloZAPine [Clozaril] 200 mg PO BID@0800,2100 7 Days #28 tab 09/14/24 [Rx] hydrOXYzine pamoate [Vistaril] 25 mg PO BID@0800,2099 30 Days #60 cap 09/14/24 [Rx] Follow up Appointment(s)/Referral(s): [facility] [Outside] - 09/16/24 10:00 am (09/16/2024 10:00AM - 11:00AM [facility] 09/19/2024 8:30AM - 9:30AM [facility] 09/20/2024 7:20AM - 7:25AM Nursing services 09/27/2024 7:30AM - 7:35AM Nursing services 10/04/2024 7:35AM - 7:40AM Nursing Services 10/06/2024 9:30AM - 10:00AM Tabitha Matos MD [Primary Care Provider] - 1-2 days Patient Instructions/Handouts: Schizophrenia (DC) Activity/Diet/Wound Care/Special Instructions: [facility] Discharge Info Avoid the use of street drugs and alcohol. Take all medications as prescribed. When you are in need of refills on your medications, please contact your outpatient medical provider and/or outpatient psychiatrist. Please go to your scheduled outpatient appointments for aftercare treatment. If symptoms return or become worse, call the crisis line at or and/or visit the nearest emergency room for assistance. National Suicide and Crisis Lifeline - call or text 988. Discharge Disposition: OTHER INSTITUTION NOT DEFINED
== END 2024-09-14 15:20 | disposition home or self-care (01) | DRG 885 ==
LOC: EC 13:12 → 3MHU 21:09
PROVIDERS: ADMIT Psychiatry & Neurology Psychiatry; ATTEND Psychiatry & Neurology Psychiatry
DX: F25.9 Schizoaffective disorder, unspecified (principal); R45.851 Suicidal ideations; F41.9 Anxiety disorder, unspecified; I10 Essential (primary) hypertension; K59.00 Constipation, unspecified; K62.89 Other specified diseases of anus and rectum; Z79.899 Other long term (current) drug therapy; Z81.8 Family history of other mental and behavioral disorders; Z87.891 Personal history of nicotine dependence; Z91.51 Personal history of suicidal behavior; Z11.52 Encounter for screening for COVID-19
CPT/HCPCS: 36415; 72170; 80048; 80061; 80159; 80306; 81001; 83036; 84443; 85025; 87635; 96372; 99285

== ENCOUNTER 2024-11-06 10:08 | Emergency (ER) | payer MEDICARE, OTHER ==
[2024-11-06 10:12] VITALS: RESP 16
--- NOTE | 2024-11-06 10:25 | ED ---
General Adult HPI - General Chief complaint: Recheck/Abnormal Lab/Rx Stated complaint: Unsteady Gait Time Seen by Provider: 11/06/24 10:10 Source: patient, EMS, RN notes reviewed, old records reviewed Mode of arrival: EMS Limitations: no limitations - History of Present Illness Initial comments: This is a 59-year-old female who presents to the emergency department complaining of having an anxious rectum and it makes her almost blackout. Patient states she is never actually passed out but she almost blacks out and sometimes falls. Patient states she did hit the right side of her head today. Patient denies any headache she denies any numbness weakness. Patient denies chest pain difficulty breathing or shortness of breath. Patient denies any a bdominal pain. Patient denies any rectal pain. Patient denies any recent fever chills or cough. Patient denies any diarrhea. Patient states has been constipated for 14 days - Related Data Home Medications Medication Instructions Recorded Confirmed diazePAM [Valium] 5 mg PO BID@0900,1700 09/11/24 09/11/24 Previous Rx's Medication Instructions Recorded Baclofen 10 mg PO BID PRN 30 Days #60 tab 09/14/24 Benztropine Mesylate [Cogentin] 0.5 mg PO BID@0800,2100 30 Days 09/14/24 #60 tab Docusate [Colace] 100 mg PO BID@0800,2099 30 Days 09/14/24 #60 cap Hydrocortisone Pr Cream 1 applic RECTAL BID 30 Days #1 each 09/14/24 [Proctosol-Hc 2.5%] Lactulose [Cephulac] 30 gm PO BID@0800,1700 30 Days #1 09/14/24 ml Mirtazapine 30 mg PO HS@2099 30 Days #30 tab 09/14/24 Pantoprazole Sodium [Protonix] 40 mg PO DAILY@0700 30 Days #30 tab 09/14/24 Propranolol [Inderal] 20 mg PO BID@0800,2099 30 Days #60 09/14/24 tab Psyllium Husk (with Sugar) 2 tsp PO DAILY@0800 30 Days #1 gm 09/14/24 [Metamucil Powder] Venlafaxine HCl ER [Effexor XR] 150 mg PO DAILY@0800 30 Days #30 09/14/24 cap bisacodyL [Dulcolax] 10 mg RECTAL BID@0800,2100 30 Days 09/14/24 #1 suppositor cloZAPine [Clozaril] 200 mg PO BID@0800,2100 7 Days #28 09/14/24 tab hydrOXYzine pamoate [Vistaril] 25 mg PO BID@0800,2100 30 Days #60 09/14/24 cap Allergies Allergy/AdvReac Type Severity Reaction Status Date / Time aripiprazole [From Abilify] AdvReac Mild "PASSES Verified 11/06/24 10:12 OUT" Review of Systems ROS Statement: Those systems with pertinent positive or pertinent negative responses have been documented in the HPI. ROS Other: All systems not noted in ROS Statement are negative. Past Medical History Past Medical History: Hypertension Additional Past Medical History / Comment(s): Demonstrating s/s of tardive dyskinesia AEB lifting legs up and down while standing and facial movements. small bowel obstruction History of Any Multi-Drug Resistant Organisms: None Reported Past Surgical History: Section Additional Past Surgical History / Comment(s): x 2 Past Anesthesia/Blood Transfusion Reactions: No Reported Reaction Past Psychological History: Schizoaffective Disorder Smoking Status: Current every day smoker Past Alcohol Use History: None Reported Past Drug Use History: None Reported General Exam - General Exam Comments Initial Comments: GENERAL: Patient is well-developed and well-nourished. Patient is nontoxic and well-hydrated and is in no acute distress. ENT: Neck is soft and supple. No significant lymphadenopathy is noted. Oropharynx is clear. Moist mucous membranes. Neck has full range of motion without eliciting any pain. In the hindu region on the right side is somewhat tender to palpation. EYES: The sclera were anicteric and conjunctiva were pink and moist. Extraocular movements were intact and pupils were equal round and reactive to light. Eyelids were unremarkable. PULMONARY: Unlabored respirations. Good breath sounds bilaterally. No audible rales rhonchi or wheezing was noted. CARDIOVASCULAR: There is a regular rate and rhythm without any murmurs gallops or rubs. ABDOMEN: Soft and nontender with normal bowel sounds. SKIN: Skin is clear with no lesions or rashes and otherwise unremarkable. NEUROLOGIC: Patient is alert and oriented x3. Cranial nerves II through XII are grossly intact. Motor and sensory are also intact. Normal speech, volume and content. Symmetrical smile. MUSCULOSKELETAL: Normal extremities with adequate strength and full range of motion. LYMPHATICS: No significant lymphadenopathy is noted PSYCHIATRIC: Normal psychiatric evaluation. Limitations: no limitations Course Vital Signs 11/06/24 11/06/24 10:09 12:54 Temperature 98.5 F Pulse Rate 87 70 Respiratory 16 16 Rate Blood Pressure 119/82 123/71 O2 Sat by Pulse 97 98 Oximetry Medical Decision Making - Medical Decision Making EKG is interpreted by myself but EKG shows sinus rhythm at 83 bpm MN 160 QRS is 88 QT interval 377 QTc is 417. EKG shows no ST segment elevation Was pt. sent in by a medical professional or institution (KENNY Agrawal, [employer], urgent care, hospital, or jail...) When possible be specific @ -No Did you speak to anyone other than the patient for history (EMS, parent, family, police, friend...)? What history was obtained from this source @ -No Did you review nursing and triage notes (agree or disagree)? Why? @ -I reviewed and agree with nursing and triage notes Were old charts reviewed (outside hosp., previous admission, EMS record, old EKG, old radiological studies, urgent care reports/EKG's, jail records)? Report findings @ -No old charts were reviewed Differential Diagnosis? @ -Differential Syncope: Valvular disease, hypertrophic cardiomyopathy, pulmonary embolism, tamponade, tachycardia, bradycardia, TN, hypovolemia, hemorrhage, dissection, anemia, intracranial hemorrhage, seizure, hypoglycemia, carbon monoxide poisoning, this is not meant to be an all-inclusive list. EKG interpreted by me (3pts min.). @ -As above X-rays interpreted by me (1pt min.). @ -KUB shows no acute abnormality CT interpreted by me (1pt min.). @ -CT of the brain and C-spine showed no acute abnormality U/S interpreted by me (1pt. min.). @ -None done What testing was considered but not performed or refused? (CT, X-rays, U/S, labs)? Why? @ -None What meds were considered but not given or refused? Why? @ -None Did you discuss the management of the patient with other professionals (professionals i.e. KENNY Agrawal, [employer], lab, RT, psych nurse, social media executive, typing section chief, teacher, chief green officer, correctional counselor/case manager)? Give summary @ -I spoke with the patient's guardian as well as the person at her halfway. They both stated that she does not actually pass out but she also the ground and sometimes they think it is just her acting out but they are not sure. Patient is scheduled for a colonoscopy on Thursday Was smoking cessation discussed for >3mins.? @ -No Was critical care preformed (if so, how long)? @ -No Were there social determinants of health that impacted care today? How? (Homelessness, low income, unemployed, alcoholism, drug addiction, transportation, low edu. Level, literacy, decrease access to med. care, residential, rehab)? @ -No Was there de-escalation of care discussed even if they declined (Discuss DNR or withdrawal of care, Hospice)? DNR status @ -No What co-morbidities impacted this encounter? (DM, HTN, Smoking, COPD, CAD, Cancer, CVA, ARF, Chemo, Hep., AIDS, mental health diagnosis, sleep apnea, morbid obesity)? @ -None Was patient admitted / discharged? Hospital course, mention meds given and route, prescriptions, significant lab abnormalities, going to OR and other pertinent info. @ -Patient had no symptoms while she was in the emergency department. CT of the head and neck were normal. KUB was normal. Lab work was normal. Patient was slightly dehydrated so she did receive a liter and a half of fluid. Patient is scheduled for colonoscopy which she is going to start prepping for later today. Undiagnosed new problem with uncertain prognosis? @ -No Drug Therapy requiring intensive monitoring for toxicity (Heparin, Nitro, Insulin, Cardizem)? @ -No Were any procedures done? @ -No Diagnosis/symptom? @ -Near syncope Acute, or Chronic, or Acute on Chronic? @ -Acute Uncomplicated (without systemic symptoms) or Complicated (systemic symptoms)? @ -Complicated Side effects of treatment? @ -No Exacerbation, Progression, or Severe Exacerbation? @ -No Poses a threat to life or bodily function? How? (Chest pain, USA, TN, pneumonia, PE, COPD, DKA, ARF, appy, cholecystitis, CVA, Diverticulitis, Homicidal, Suicidal, threat to staff... and all critical care pts) @ -No - Lab Data Result diagrams: 11/06/24 10:40 11/06/24 10:40 Lab Results 11/06/24 11/06/24 11/06/24 Range/Units 10:40 10:40 10:40 WBC 10.2 (3.8-10.6) k/uL RBC 4.87 (3.80-5.40) m/uL Hgb 13.7 (11.4-16.0) gm/dL Hct 42.1 (34.0-46.0) % MCV 86.3 (80.0-100.0) fL MCH 28.1 (25.0-35.0) pg MCHC 32.5 (31.0-37.0) g/dL RDW 13.8 (11.5-15.5) % Plt Count 172 (150-450) k/uL MPV 8.8 Neutrophils % 66 % Lymphocytes % 26 % Monocytes % 5 % Eosinophils % 2 % Basophils % 0 % Neutrophils # 6.7 (1.3-7.7) k/uL Lymphocytes # 2.7 (1.0-4.8) k/uL Monocytes # 0.5 (0-1.0) k/uL Eosinophils # 0.2 (0-0.7) k/uL Basophils # 0.0 (0-0.2) k/uL Sodium 138 (137-145) mmol/L Potassium 3.8 (3.5-5.1) mmol/L Chloride 103 (98-107) mmol/L Carbon Dioxide 27 (22-30) mmol/L Anion Gap 8 mmol/L BUN 10 (7-17) mg/dL Creatinine 0.83 (0.52-1.04) mg/dL Est GFR (CKD-EPI)AfAm >90 (>60 ml/min/1.73 sqM) Est GFR (CKD-EPI)NonAf 79 (>60 ml/min/1.73 sqM) Glucose 85 (74-99) mg/dL Calcium 9.0 (8.4-10.2) mg/dL Magnesium 2.2 (1.6-2.3) mg/dL Total Bilirubin 0.5 (0.2-1.3) mg/dL AST 21 (14-36) U/L ALT 17 (4-34) U/L Alkaline Phosphatase 70 (38-126) U/L Troponin I <0.012 (0.000-0.034) ng/mL Total Protein 5.8 L (6.3-8.2) g/dL Albumin 3.8 (3.5-5.0) g/dL Urine Color Urine Appearance (Clear) Urine pH (5.0-8.0) Ur Specific Moro (1.001-1.035) Urine Protein (Negative) Urine Glucose (UA) (Negative) Urine Ketones (Negative) Urine Blood (Negative) Urine Nitrite (Negative) Urine Bilirubin (Negative) Urine Urobilinogen (<2.0) mg/dL Ur Leukocyte Esterase (Negative) Urine RBC (0-5) /hpf Urine WBC (0-5) /hpf Ur Squamous Epith Cells (0-4) /hpf Urine Bacteria (None) /hpf Urine Mucus (None) /hpf 11/06/24 Range/Units 12:54 WBC (3.8-10.6) k/uL RBC (3.80-5.40) m/uL Hgb (11.4-16.0) gm/dL Hct (34.0-46.0) % MCV (80.0-100.0) fL MCH (25.0-35.0) pg MCHC (31.0-37.0) g/dL RDW (11.5-15.5) % Plt Count (150-450) k/uL MPV Neutrophils % % Lymphocytes % % Monocytes % % Eosinophils % % Basophils % % Neutrophils # (1.3-7.7) k/uL Lymphocytes # (1.0-4.8) k/uL Monocytes # (0-1.0) k/uL Eosinophils # (0-0.7) k/uL Basophils # (0-0.2) k/uL Sodium (137-145) mmol/L Potassium (3.5-5.1) mmol/L Chloride (98-107) mmol/L Carbon Dioxide (22-30) mmol/L Anion Gap mmol/L BUN (7-17) mg/dL Creatinine (0.52-1.04) mg/dL Est GFR (CKD-EPI)AfAm (>60 ml/min/1.73 sqM) Est GFR (CKD-EPI)NonAf (>60 ml/min/1.73 sqM) Glucose (74-99) mg/dL Calcium (8.4-10.2) mg/dL Magnesium (1.6-2.3) mg/dL Total Bilirubin (0.2-1.3) mg/dL AST (14-36) U/L ALT (4-34) U/L Alkaline Phosphatase (38-126) U/L Troponin I (0.000-0.034) ng/mL Total Protein (6.3-8.2) g/dL Albumin (3.5-5.0) g/dL Urine Color Yellow Urine Appearance Cloudy H (Clear) Urine pH 6.0 (5.0-8.0) Ur Specific Moro 1.033 (1.001-1.035) Urine Protein 2+ H (Negative) Urine Glucose (UA) Negative (Negative) Urine Ketones 1+ H (Negative) Urine Blood Negative (Negative) Urine Nitrite Negative (Negative) Urine Bilirubin 1+ H (Negative) Urine Urobilinogen 2.0 (<2.0) mg/dL Ur Leukocyte Esterase Negative (Negative) Urine RBC 2 (0-5) /hpf Urine WBC 4 (0-5) /hpf Ur Squamous Epith Cells 3 (0-4) /hpf Urine Bacteria Rare H (None) /hpf Urine Mucus Many H (None) /hpf Disposition Clinical Impression: Near syncope Disposition: HOME SELF-CARE Condition: Good Instructions (If sedation given, give patient instructions): Near Syncope (ED) Is patient prescribed a controlled substance at d/c from ED?: No Referrals: Tabitha Hernandez MD [Primary Care Provider] - 1-2 days Time of Disposition: 13:46
--- NOTE | 2024-11-06 10:49 | XR ---
EXAMINATION TYPE: XR KUB DATE OF EXAM: 11/06/2024 10:44 AM CLINICAL HISTORY: Constipation. TECHNIQUE: Two Upright KUB images of the abdomen are obtained. COMPARISON: Prior abdominal x-ray September 07, 2024. FINDINGS: Gas seen in nondistended stomach. Scattered gas in slightly prominent scattered small bowel loops. Gas seen in nondistended colon. A few scattered air-fluid levels are present which is nonspec ific finding. There is new left basilar linear atelectasis. No free air. No suspicious calcifications . Osseous structures are intact. IMPRESSION: Overall nonspecific but do favor nonobstructive bowel gas pattern. No significant colonic fecal stasis or constipation. [facility], , 11/06/2024 10:47 AM
[2024-11-06 10:56] LABS: Basophils % (A) 0 %; Eosinophils # (A) 0.2 k/uL (0-0.7); Eosinophils % (A) 2 %; HCT 42.1 % (34.0-46.0); HGB 13.7 gm/dL (11.4-16.0); Lymphocytes # (A) 2.7 k/uL (1.0-4.8); Lymphocytes % (A) 26 %; MCH 28.1 pg (25.0-35.0); MCHC 32.5 g/dL (31.0-37.0); MCV 86.3 fL (80.0-100.0); Mean Platelet Volume 8.8; Monocytes # (A) 0.5 k/uL (0-1.0); Monocytes % (A) 5 %; Neutrophils # (A) 6.7 k/uL (1.3-7.7); Neutrophils % (A) 66 %; Platelet Count 172 k/uL (150-450); RBC 4.87 m/uL (3.80-5.40); RDW 13.8 % (11.5-15.5); WBC 10.2 k/uL (3.8-10.6)
[2024-11-06 11:17] LABS: ALT 17 U/L (4-34); AST 21 U/L (14-36); African American GFR (CKD) >90 (>60 ml/min/1.73 sqM); Albumin 3.8 g/dL (3.5-5.0); Alkaline Phosphatase 70 U/L (38-126); Anion Gap 8 mmol/L; Blood Urea Nitrogen 10 mg/dL (7-17); Carbon Dioxide 27 mmol/L (22-30); Chloride 103 mmol/L (98-107); Glucose 85 mg/dL (74-99); Magnesium 2.2 mg/dL (1.6-2.3); Non-African American GFR(CKD) 79 (>60 ml/min/1.73 sqM); Potassium 3.8 mmol/L (3.5-5.1); Sodium 138 mmol/L (137-145); Total Bilirubin 0.5 mg/dL (0.2-1.3); Total Protein 5.8 g/dL (6.3-8.2)
--- NOTE | 2024-11-06 11:20 | CT ---
EXAMINATION TYPE: CT brain sydni morgan DATE OF EXAM: 11/06/2024 COMPARISON: NONE HISTORY: UNSTEADY GAIT, FALLS, neck pain. CT DLP: 1267.9 mGycm. Automated Exposure Control for Dose Reduction was Utilized. TECHNIQUE: CT scan of the head and cervical spine are performed without contrast. FINDINGS: There is no acute intracranial hemorrhage, mass effect, or midline shift identified. The ventricles and sulci are within normal limits in size for patient's age. The calvarium is intact Th e globes are intact and the visualized sinuses are clear. Cervical spine is visualized in its entirety from C1 through upper thoracic levels and demonstrates l oss of normal cervical curvature centered at C5-C6 level without evidence of acute fracture or disloc ation. Prevertebral soft tissue appears within normal limits. The C1-C2 articulation is within norm al limits on the coronal images. Vertebral body heights are within normal limits. Moderate disc spac e narrowing and spurring at C5-C6 and C6-C7 levels is present. Axial images show multilevel left-side d uncovertebral facet degenerative changes. Upper lungs are clear without pneumothorax. IMPRESSION: 1. There is no acute fracture or dislocation evident in the cervical spine. 2. No acute intracranial hemorrhage or midline shift is seen. [facility], , 11/06/2024 11:17 AM
[2024-11-06] MEDS: SODIUM CHLORIDE 0.9% 500 ML 500 ML IV ONE (12:56)
[2024-11-06] MEDS: SODIUM CHLORIDE 0.9% 1,000 ML IV ONE (12:56)
[2024-11-06 13:35] LABS: Appearance,Urine Cloudy (Clear); Bacteria,Urine Rare /hpf; Bilirubin,Urine 1+ (Negative); Blood,Urine Negative (Negative); Color,Urine Yellow; Glucose,Urine (UA) Negative (Negative); Ketones,Urine 1+ (Negative); Leukocyte Esterase,Urine Negative (Negative); Mucus,Urine Many /hpf; Nitrite,Urine Negative (Negative); Protein,Urine 2+ (Negative); RBC,Urine 2 /hpf (0-5); Specific Gravity,Urine 1.033 (1.001-1.035); Squamous Epithelial Cell,Urine 3 /hpf (0-4); WBC,Urine 4 /hpf (0-5)
[2024-11-06 14:52] VITALS: BP 154/93; PULSE 85; TEMP 98.6
== END 2024-11-06 14:52 | disposition home or self-care (01) ==
LOC: EC 10:08
DX: R55 Syncope and collapse (principal); F17.200 Nicotine dependence, unspecified, uncomplicated; Z88.8 Allergy status to other drugs, medicaments and biological substances
CPT/HCPCS: 36415; 70450; 72125; 74018; 80053; 81001; 83735; 84484; 85025; 93005; 96360; 99284

== ENCOUNTER → 2025-01-05 | Outpatient (CLI) | payer MEDICARE ==
--- NOTE | 2025-01-05 11:39 | XR ---
EXAMINATION TYPE: XR tibia fibula LT DATE OF EXAM: 01/05/2025 11:31 AM COMPARISON: None CLINICAL INDICATION: Female, 59 years old with history of M79.605 pain lower leg, pain TECHNIQUE: XR tibia fibula LT; examined in AP and lateral projections. FINDINGS: No evidence of any acute osseous pathology, joint dislocation, or soft tissue swelling is n oted. IMPRESSION: No evidence of acute fracture. [facility], , 01/05/2025 11:37 AM
== END | disposition home or self-care (01) ==
LOC: RADXRMAIN 11:00
PROVIDERS: ATTEND Family Medicine
DX: M79.662 Pain in left lower leg (principal); R26.89 Other abnormalities of gait and mobility

== ENCOUNTER 2025-03-15 09:47 | Emergency (ER) | payer MEDICARE, OTHER ==
[2025-03-15] MEDS: SODIUM CHLORIDE 0.9% 500 ML 500 ML IV STA (10:25)
--- NOTE | 2025-03-15 10:26 | ED ---
General Adult HPI - General Chief complaint: Recheck/Abnormal Lab/Rx Stated complaint: Fall-Right Foot Time Seen by Provider: 03/15/25 09:49 Source: patient Mode of arrival: ambulatory Limitations: no limitations - History of Present Illness Initial comments: 59 year old female presents to the ED for evaluation after a fall on the stairs yesterday. She doesn't recall how it happened but says she blacked out right after. She denies any other recent falls. Since the incident she reports pain and swelling on her right lower leg and foot. She denies any numbness or tingling in the affected foot and doesn't have any other symptoms at this time. - Related Data Home Medications Medication Instructions Recorded Confirmed diazePAM [Valium] 5 mg PO BID@0900,1700 09/11/24 09/11/24 Previous Rx's Medication Instructions Recorded Baclofen 10 mg PO BID PRN 30 Days #60 tab 09/14/24 Benztropine Mesylate [Cogentin] 0.5 mg PO BID@0800,2099 30 Days 09/14/24 #60 tab Docusate [Colace] 100 mg PO BID@0800,2099 30 Days 09/14/24 #60 cap Hydrocortisone Pr Cream 1 applic RECTAL BID 30 Days #1 each 09/14/24 [Proctosol-Hc 2.5%] Lactulose [Cephulac] 30 gm PO BID@0800,1700 30 Days #1 09/14/24 ml Mirtazapine 30 mg PO HS@2099 30 Days #30 tab 09/14/24 Pantoprazole Sodium [Protonix] 40 mg PO DAILY@0700 30 Days #30 tab 09/14/24 Propranolol [Inderal] 20 mg PO BID@0800,2100 30 Days #60 09/14/24 tab Psyllium Husk (with Sugar) 2 tsp PO DAILY@0800 30 Days #1 gm 09/14/24 [Metamucil Powder] Venlafaxine HCl ER [Effexor XR] 150 mg PO DAILY@0800 30 Days #30 09/14/24 cap bisacodyL [Dulcolax] 10 mg RECTAL BID@0800,2100 30 Days 09/14/24 #1 suppositor cloZAPine [Clozaril] 200 mg PO BID@0800,2100 7 Days #28 09/14/24 tab hydrOXYzine pamoate [Vistaril] 25 mg PO BID@0800,2100 30 Days #60 09/14/24 cap Allergies Allergy/AdvReac Type Severity Reaction Status Date / Time aripiprazole [From Abilify] AdvReac Mild "PASSES Verified 03/15/25 09:54 OUT" Review of Systems ROS Statement: Those systems with pertinent positive or pertinent negative responses have been documented in the HPI. ROS Other: All systems not noted in ROS Statement are negative. Past Medical History Past Medical History: Hypertension Additional Past Medical History / Comment(s): Demonstrating s/s of tardive dyskinesia AEB lifting legs up and down while standing and facial movements. small bowel obstruction History of Any Multi-Drug Resistant Organisms: None Reported Past Surgical History: Section Additional Past Surgical History / Comment(s): x 2 Past Anesthesia/Blood Transfusion Reactions: No Reported Reaction Past Psychological History: Schizoaffective Disorder Smoking Status: Current every day smoker Past Alcohol Use History: None Reported Past Drug Use History: None Reported General Exam Limitations: no limitations General appearance: alert, in no apparent distress Head exam: Present: atraumatic, normocephalic, normal inspection Respiratory exam: Present: normal lung sounds bilaterally. Absent: respiratory distress, wheezes, rales, rhonchi, stridor Cardiovascular Exam: Present: regular rate, normal rhythm, normal heart sounds. Absent: systolic murmur, diastolic murmur, rubs, gallop, clicks Extremities exam: Present: normal inspection, full ROM, normal capillary refill. Absent: tenderness, pedal edema, joint swelling, calf tenderness Right Ankle exam: Present: tenderness, swelling Foot/Toe exam: Present: normal inspection, tenderness, swelling, ecchymosis Course Vital Signs 03/15/25 09:50 Temperature 99.3 F Pulse Rate 106 H Respiratory 18 Rate Blood Pressure 110/80 O2 Sat by Pulse 98 Oximetry EKG Findings - EKG Comments: EKG Findings:: EKG performed at 10: 05 sinus rhythm rate of 92 MT 151 QRS 85 QT/QTc 348/397 - EKG Results: EKG: interpreted by GEOVANY Medical Decision Making - Medical Decision Making Was pt. sent in by a medical professional or institution (, PA, ORDER ENTRY, urgent care, hospital, or jail...) When possible be specific @ -No Did you speak to anyone other than the patient for history (EMS, parent, family, police, friend...)? What history was obtained from this source @ -Caregiver in the room providing significant past medical history and current complaint Did you review nursing and triage notes (agree or disagree)? Why? @ -I reviewed and agree with nursing and triage notes Were old charts reviewed (outside hosp., previous admission, EMS record, old EKG, old radiological studies, urgent care reports/EKG's, jail records)? Report findings @ -No old charts were reviewed Differential Diagnosis (chest pain, altered mental status, abdominal pain women, abdominal pain men, vaginal bleeding, weakness, fever, dyspnea, syncope, headache, dizziness, GI bleed, back pain, seizure, CVA, palpatations, mental health, musculoskeletal)? @ -Differential Syncope: Valvular disease, hypertrophic cardiomyopathy, pulmonary embolism, tamponade, tachycardia, bradycardia, [place], hypovolemia, hemorrhage, dissection, anemia, intracranial hemorrhage, seizure, hypoglycemia, carbon monoxide poisoning, this is not meant to be an all-inclusive list. EKG interpreted by me (3pts min.). @ -As above X-rays interpreted by me (1pt min.). @ -X-ray left foot no acute fracture or malalignment X-ray ankle 3 view no acute fracture CT interpreted by me (1pt min.). @ -None done U/S interpreted by me (1pt. min.). @ -None done What testing was considered but not performed or refused? (CT, X-rays, U/S, labs)? Why? @ -None What meds were considered but not given or refused? Why? @ -None Did you discuss the management of the patient with other professionals (professionals i.e. , PA, ORDER ENTRY, lab, RT, psych nurse, social media project manager, signals officer, teacher, corporate officer, case investigator)? Give summary @ -No Was smoking cessation discussed for >3mins.? @ -No Was critical care preformed (if so, how long)? @ -No Were there social determinants of health that impacted care today? How? (Homelessness, low income, unemployed, alcoholism, drug addiction, transportation, low edu. Level, literacy, decrease access to med. care, skilled nursing, rehab)? @ -No Was there de-escalation of care discussed even if they declined (Discuss DNR or withdrawal of care, Hospice)? DNR status @ -No What co-morbidities impacted this encounter? (DM, HTN, Smoking, COPD, CAD, Cancer, CVA, ARF, Chemo, Hep., AIDS, mental health diagnosis, sleep apnea, morbid obesity)? @ -None Was patient admitted / discharged? Hospital course, mention meds given and route, prescriptions, significant lab abnormalities, going to OR and other pertinent info. @ -Discharge patient had reported possible syncopal episode. Patient's workup was negative she is asymptomatic other than foot injury. Patient's foot is wrapped there are no acute fractures on x-ray. Undiagnosed new problem with uncertain prognosis? @ -No Drug Therapy requiring intensive monitoring for toxicity (Heparin, Nitro, Insulin, Cardizem)? @ -No Were any procedures done? @ -No Diagnosis/symptom? @ -Syncope, foot sprain Acute, or Chronic, or Acute on Chronic? @ -Acute Uncomplicated (without systemic symptoms) or Complicated (systemic symptoms)? @ -complicated Side effects of treatment? @ -No Exacerbation, Progression, or Severe Exacerbation? @ -No Poses a threat to life or bodily function? How? (Chest pain, [place], [place], pneumonia, PE, COPD, DKA, ARF, appy, cholecystitis, CVA, Diverticulitis, Homicidal, Suicidal, threat to staff... and all critical care pts) @ -No - Lab Data Result diagrams: 03/15/25 10:37 03/15/25 10:37 Lab Results 03/15/25 03/15/25 03/15/25 Range/Units 10:37 10:37 10:37 WBC 9.84 (4.50-10.00) 10*3/uL RBC 4.84 (4.10-5.20) 10*6/uL Hgb 13.6 (12.0-15.0) g/dL Hct 41.9 (37.2-46.3) % MCV 86.6 (80.0-97.0) fL MCH 28.1 (27.0-32.0) pg MCHC 32.5 (32.0-37.0) g/dL Plt Count 163 (140-440) 10*3/uL MPV 11.4 (9.5-12.2) fL Immature Gran % (Auto) 0.3 % Neutrophils % 66.1 % Lymphocytes % 19.6 % Monocytes % 12.4 % Eosinophils % 1.3 % Basophils % 0.3 % Immature Gran # 0.03 (0.00-0.04) 10*3/uL Neutrophils # 6.50 (1.80-7.70) 10*3/uL Lymphocytes # 1.93 (0.90-5.00) 10*3/uL Monocytes # 1.22 H (0.20-1.00) 10*3/uL Eosinophils # 0.13 (0.04-0.35) 10*3/uL Basophils # 0.03 (0.00-0.10) 10*3/uL PT 10.8 (10.0-12.5) sec INR 1.0 (<1.2) APTT 21.0 L (22.0-30.0) sec Sodium 137 (137-145) mmol/L Potassium 3.6 (3.5-5.1) mmol/L Chloride 99 (98-107) mmol/L Carbon Dioxide 29 (22-30) mmol/L Anion Gap 9 mmol/L BUN 13 (7-17) mg/dL Creatinine 0.87 (0.52-1.04) mg/dL Est GFR (CKD-EPI)AfAm 86 (>60 ml/min/1.73 sqM) Est GFR (CKD-EPI)NonAf 74 (>60 ml/min/1.73 sqM) Glucose 197 H (74-99) mg/dL Calcium 9.3 (8.4-10.2) mg/dL Magnesium 1.9 (1.6-2.3) mg/dL Total Bilirubin 0.7 (0.2-1.3) mg/dL AST 24 (14-36) U/L ALT 32 (4-34) U/L Alkaline Phosphatase 79 (38-126) U/L Troponin I (0.000-0.034) ng/mL Total Protein 6.2 L (6.3-8.2) g/dL Albumin 3.7 (3.5-5.0) g/dL / Range/Units 10:37 WBC (4.50-10.00) 10*3/uL RBC (4.10-5.20) 10*6/uL Hgb (12.0-15.0) g/dL Hct (37.2-46.3) % MCV (80.0-97.0) fL MCH (27.0-32.0) pg MCHC (32.0-37.0) g/dL Plt Count (140-440) 10*3/uL MPV (9.5-12.2) fL Immature Gran % (Auto) % Neutrophils % % Lymphocytes % % Monocytes % % Eosinophils % % Basophils % % Immature Gran # (0.00-0.04) 10*3/uL Neutrophils # (1.80-7.70) 10*3/uL Lymphocytes # (0.90-5.00) 10*3/uL Monocytes # (0.20-1.00) 10*3/uL Eosinophils # (0.04-0.35) 10*3/uL Basophils # (0.00-0.10) 10*3/uL PT (10.0-12.5) sec INR (<1.2) APTT (22.0-30.0) sec Sodium (137-145) mmol/L Potassium (3.5-5.1) mmol/L Chloride (98-107) mmol/L Carbon Dioxide (22-30) mmol/L Anion Gap mmol/L BUN (7-17) mg/dL Creatinine (0.52-1.04) mg/dL Est GFR (CKD-EPI)AfAm (>60 ml/min/1.73 sqM) Est GFR (CKD-EPI)NonAf (>60 ml/min/1.73 sqM) Glucose (74-99) mg/dL Calcium (8.4-10.2) mg/dL Magnesium (1.6-2.3) mg/dL Total Bilirubin (0.2-1.3) mg/dL AST (14-36) U/L ALT (4-34) U/L Alkaline Phosphatase (38-126) U/L Troponin I <0.012 (0.000-0.034) ng/mL Total Protein (6.3-8.2) g/dL Albumin (3.5-5.0) g/dL Disposition Clinical Impression: Syncope, Foot sprain Disposition: HOME SELF-CARE Condition: Stable Instructions (If sedation given, give patient instructions): Syncope (ED), Foot Sprain (ED) Additional Instructions: Please return to the Emergency Department if symptoms worsen or any other concerns. Is patient prescribed a controlled substance at d/c from ED?: No Referrals: Tabitha Hernandez MD [Primary Care Provider] - 1-2 days Michele Cardenas DO [Doctor of Osteopathic Medicine] - 1-2 days Time of Disposition: 12:15
[2025-03-15 10:42] LABS: Basophils # (A) 0.03 10*3/uL (0.00-0.10); Basophils % (A) 0.3 %; Eosinophils # (A) 0.13 10*3/uL (0.04-0.35); Eosinophils % (A) 1.3 %; HCT 41.9 % (37.2-46.3); HGB 13.6 g/dL (12.0-15.0); Lymphocytes # (A) 1.93 10*3/uL (0.90-5.00); Lymphocytes % (A) 19.6 %; MCH 28.1 pg (27.0-32.0); MCHC 32.5 g/dL (32.0-37.0); MCV 86.6 fL (80.0-97.0); Mean Platelet Volume 11.4 fL (9.5-12.2); Monocytes # (A) 1.22 10*3/uL (0.20-1.00); Monocytes % (A) 12.4 %; Neutrophils % (A) 66.1 %; Platelet Count 163 10*3/uL (140-440); RBC 4.84 10*6/uL (4.10-5.20); WBC 9.84 10*3/uL (4.50-10.00)
[2025-03-15 10:55] LABS: ALT 32 U/L (4-34); AST 24 U/L (14-36); African American GFR (CKD) 86 (>60 ml/min/1.73 sqM); Albumin 3.7 g/dL (3.5-5.0); Alkaline Phosphatase 79 U/L (38-126); Anion Gap 9 mmol/L; Blood Urea Nitrogen 13 mg/dL (7-17); Calcium 9.3 mg/dL (8.4-10.2); Carbon Dioxide 29 mmol/L (22-30); Chloride 99 mmol/L (98-107); Glucose 197 mg/dL (74-99); Magnesium 1.9 mg/dL (1.6-2.3); Non-African American GFR(CKD) 74 (>60 ml/min/1.73 sqM); Potassium 3.6 mmol/L (3.5-5.1); Sodium 137 mmol/L (137-145); Total Bilirubin 0.7 mg/dL (0.2-1.3); Total Protein 6.2 g/dL (6.3-8.2)
[2025-03-15 10:58] LABS: Prothrombin Time 10.8 sec (10.0-12.5)
--- NOTE | 2025-03-15 11:03 | XR ---
EXAMINATION TYPE: XR foot complete RT, XR ankle complete RT DATE OF EXAM: 03/15/2025 10:54 AM COMPARISON: None CLINICAL INDICATION: Female, 59 years old with history of pain; PHH, pain TECHNIQUE: XR foot complete RT, XR ankle complete RT examined in the AP, oblique, and lateral project ions. FINDINGS: Soft tissue swelling present. No evidence of any acute osseous pathology. Calcaneal plantar spurring is present. Incidental note is made of symphalangism of the fifth distal interphalangeal joint. Ca lcaneal Achilles enthesophyte. Bipartite lateral segment of the first digit. IMPRESSION: 1. Soft tissue swelling around the ankle without evidence of acute fracture. 2. Multifocal degeneration changes throughout the joints of the foot. [facility], , 03/15/2025 11:01 AM
[2025-03-15 12:34] VITALS: BP 119/57; PULSE 80; RESP 20; TEMP 98.3
== END 2025-03-15 12:42 | disposition home or self-care (01) ==
LOC: EC 09:47
DX: S93.601A Unspecified sprain of right foot, initial encounter (principal); F17.200 Nicotine dependence, unspecified, uncomplicated; Z88.8 Allergy status to other drugs, medicaments and biological substances; W10.9XXA Fall (on) (from) unspecified stairs and steps, initial encounter
CPT/HCPCS: 36415; 80053; 83735; 84484; 85025; 85610; 85730; 93005; 99284